=== PATIENT | female | born 1960 | race Caucasian/White ===

== ENCOUNTER 2018-05-03 17:48 | Outpatient (REF) | payer BC, SELFPAY ==
--- NOTE | 2018-05-03 13:30 | ORMUBX_PTH ---
PATIENT: [place] Garduno LOC: [facility] U#:[id number] AGE/SX: 57/F ROOM: RE05/03/[address]: Brien Reed : 1960 BED: DIS: 05/03/2018 SPEC #: [id number] RECD: 05/03/18 18:09 STATUS: DEENA REQ #: [id number] MICHAEL: 05/03/18 13:[address]: Brien Reed DEPT: Surgical Specimen RECD BY: Lesly Oneill ENTERED: 05/03/18 18:10 SP TYPE: ORMUBX OTHR DR: Delia Jacques Tissues: 1 - MUCOSA, NOS Procedures: GROSS AND MICRO LEVEL 4 Comments: [id number]
== END 2018-05-03 18:08 ==
LOC: LBN 17:48
PROVIDERS: PCP Nurse Practitioner Family; Visit Provider Dentist General Practice
DX: K09.8 Other cysts of oral region, not elsewhere classified (principal)
CPT/HCPCS: 88305

== ENCOUNTER 2018-09-07 12:54 | Outpatient (REF) | payer BC, SELFPAY ==
[2018-09-07 14:41] LABS: ALT 27 U/L (12-78); AST 15 U/L (15-37); Albumin 3.9 g/dL (3.4-5.0); Alkaline Phosphatase 108 U/L (46-116); Anion Gap 13.2 mmol/L (3-11); BUN 15 mg/dL (7-18); Bilirubin, Total 0.4 mg/dL (0.2-1.0); CO2 23.8 mmol/L (21.0-32.0); CREATININE 0.97 mg/dL (0.55-1.02); Calcium 9.1 mg/dL (8.5-10.1); Calculated LDL 205 mg/dL; Chloride 103 mmol/L (98-107); Cholesterol 289 mg/dL (50-200); Estimated GFR 59.62 (mL/min/1.73m2); Glucose 126 mg/dL (70-100); HDL Cholesterol 48 mg/dL (40-60); Sodium 140 mmol/L (136-145); Total Protein 7.2 g/dL (6.4-8.2); Triglyceride 181 mg/dL (30-150)
== END 2018-09-07 13:14 ==
LOC: NCHCN 12:54
PROVIDERS: PCP Nurse Practitioner Family; Visit Provider Family Medicine
DX: E78.5 Hyperlipidemia, unspecified (principal)
CPT/HCPCS: 80053; 80061; 83721

== ENCOUNTER 2019-03-14 09:09 | Outpatient (REF) | payer BC, SELFPAY ==
[2019-03-14 13:11] LABS: ALT 23 U/L (14-59); AST 13 U/L (15-37); Alkaline Phosphatase 92 U/L (46-116); Bilirubin, Total 0.5 mg/dL (0.2-1.0); Calculated LDL 122 mg/dL; Cholesterol 192 mg/dL (<200); HDL Cholesterol 46 mg/dL (40-60); Total Protein 6.9 g/dL (6.4-8.2); Triglyceride 120 mg/dL (<150)
[2019-03-14 15:35] LABS: Bilirubin, Direct 0.12 mg/dL (0.00-0.20)
== END 2019-03-14 09:29 ==
LOC: NCHCN 09:09
PROVIDERS: PCP Family Medicine; Visit Provider Family Medicine
DX: Z00.00 Encounter for general adult medical examination without abnormal findings (principal); E78.5 Hyperlipidemia, unspecified; E66.9 Obesity, unspecified
CPT/HCPCS: 80061; 80076

== ENCOUNTER 2019-11-08 20:59 | Outpatient (REF) | payer BC, SELFPAY ==
[2019-11-11 05:49] LABS: SARS-CoV-2 RNA Undetected (Undetected); SARS-CoV-2 Specimen Source Nasal
== END 2019-11-08 21:19 ==
LOC: NCHCN 20:59
PROVIDERS: PCP Family Medicine; Visit Provider Nurse Practitioner Family
DX: Z20.828 Contact with and (suspected) exposure to other viral communicable diseases (principal)
CPT/HCPCS: U0003

== ENCOUNTER 2019-11-15 15:56 | Outpatient (REF) | payer BC, SELFPAY ==
[2019-11-20 12:26] LABS: Misc Referral (VDH) See Comments
== END 2019-11-15 16:16 ==
LOC: NCHCN 15:56
PROVIDERS: PCP Family Medicine; Visit Provider Nurse Practitioner Family
DX: R19.7 Diarrhea, unspecified (principal)
CPT/HCPCS: 87329; 87324

== ENCOUNTER 2020-03-04 03:18 | Outpatient (CLI) | payer BC, SELFPAY ==
--- NOTE | 2020-03-04 14:00 | NS.NUTBLAN_ITS ---
[place] was referred for Medical Nutrition Therapy for morbid obesity. Medical Chart indicates Wt: 252 ht: 66 BMI 40.9. Most recent lipids indicate elevated LDL. Meds include atorvastatin and BP medication. [place] reports steady weight gain in last 20 years despite being active and eating mostly home made meals. She just got her CPAP machine due to sleep apnea. We discussed pros and cons of dieting versus weight loss surgery. [place] is willing to try to follow a low carb, high protein diet and to exercise 1 hour daily. Goal weight loss: 5 lbs per month, goal weight: 220 lbs. I educated her on how to maintain a high metabolism despite calorie reduction by eating 3 meals, 2 snacks daily and increasing amount of exercise as weight becomes lower. [place] was disappointed that weight loss requires a lot of time in exercise and inability to enjoy foods she typically likes to eat. She is not willing to consider weight loss surgery though it will provide the most reliable weight loss to a BMI < 25. Plan: 1. no follow up planned, [place] will call for follow up appt. 2. Weigh self once weekly- goal 5 lbs loss per 4 weeks 3. follow [id number] kcal meal plan with 80-100 g carb, 60-80 g protein, 50- 60 g fat 4. walk 7 miles per week 5. fu with PCP if feels unwell with moderate exercise.
== END 2020-03-04 03:38 ==
PROVIDERS: PCP Family Medicine; Visit Provider Dietitian, Registered
DX: E66.01 Morbid (severe) obesity due to excess calories (principal); Z68.41 Body mass index [BMI] 40.0-44.9, adult; Z71.3 Dietary counseling and surveillance
CPT/HCPCS: 97802

== ENCOUNTER 2020-03-26 01:04 | Outpatient (CLI) | payer OTHER, SELFPAY ==
--- NOTE | 2020-03-26 15:45 | DI.MAMMO_ITS ---
EXAM: MG MAMMO SCREENING CLINICAL HISTORY: SCREENING, Z12.31 TECHNIQUE: Bilateral full field digital CC and MLO mammographic images were obtained with 3D tomosyn thesis and utilizing computer aided detection (CAD). COMPARISON: Available for comparison. FINDINGS: Masses/Architectural Distortion: There is a new 1.3 cm density at the 12 o'clock position of the righ t breast posteriorly. There is a 5 mm asymmetric density in the outer left breast on the craniocauda d view. Microcalcifications: No suspicious pleomorphic-type are seen. Skin Thickening/Nipple Retraction: None. IMPRESSION: 1. New 1.3 cm density at 12 o'clock position of the right breast. 5 mm asymmetric density in the out er left breast on the CC view. 2. Spot compression views are requested of these areas. Ultrasound should be obtained at that time. BI-RADS Category 0 - Assessment Incomplete: Need additional imaging evaluation Breast Density - Category B - Scattered areas of fibroglandular density Breast density category C or D implies that the patient has dense breast tissue. Dense breast tissue is very common and is not abnormal but dense breast tissue can make it harder to find cancer on a ma mmogram. Also, dense breast tissue may increase their breast cancer risk. This information about the result of the mammogram report was provided to the patient to raise their awareness. Use this report when you speak with the patient about their risks for breast cancer, which includes their family hist ory. At that time, you may recommend for more screening tests (Ultrasound or MRI) as they might be us eful based on their risk. A negative radiographic report should not delay biopsy if a dominant or clinically suspicious mass is present. Up to ten percent of cancers are not identified on mammography. A negative report may reinforce clinical impression. Adenosis and dense breasts may obscure an underlying neoplasm. False positive reports average 6 to 10%. Patient will receive a letter notifying them of these results.
== END 2020-03-26 01:24 ==
PROVIDERS: PCP Family Medicine; Visit Provider Family Medicine
DX: Z12.31 Encounter for screening mammogram for malignant neoplasm of breast (principal); R92.8 Other abnormal and inconclusive findings on diagnostic imaging of breast
CPT/HCPCS: 77063; 77067

== ENCOUNTER 2020-04-03 01:38 | Outpatient (CLI) | payer OTHER, SELFPAY ==
--- NOTE | 2020-04-03 | DI.US_ITS ---
EXAM: MG MAMMO SCREEN CALL BACK UNI CLINICAL HISTORY: F/U MAMMO, NEW RT BREAST DENSITY, LT BREAST ASYMMETRIC DENSITY TECHNIQUE: Bilateral full spot compression digital CC and MLO mammographic images were obtained incl uding 3D tomosynthesis. COMPARISON: 26 March 2020 and exams from 2010 through 2018. FINDINGS: Right breast: Masses/Architectural Distortion: Persistent mass in the central posterior tissue measuring 13 millime ters in greatest dimension. There is associated spiculation. Microcalcifications: No suspicious pleomorphic-type are seen. Skin Thickening/Nipple Retraction: None. Right breast ultrasound: Ultrasound shows a 13 x 13 x 5 millimeter hypoechoic mass in the posterior t issue at the 12 o'clock position, 2 centimeters from the nipple. The margins are irregular and there is posterior shadowing. A 4 millimeter hypoechoic lesion is seen in the 12 o'clock position 3 cm fr om the nipple which could represent a small cyst or lymph node. Left breast: There is a spiculated appearing 4-5 millimeter lesion seen only on the CC view. Left breast ultrasound: No mass is identified. IMPRESSION: 1. Right breast: Persistent spiculated mass. Biopsy is recommended for further evaluation. BI-RADS C at 5 - Highly Suggestive of Malignancy: Biopsy recommended. 2. Left breast: No definite persistent abnormality. Six-month follow-up mammogram or further evalu ation with MRI could be considered. BI-RADS Category 5 - Highly Suggestive of Malignancy: Biopsy recommended Breast Density - Category B - Scattered areas of fibroglandular density Up to ten percent of cancers are not identified on mammography. A negative report may reinforce clinical impression. Adenosis and dense breasts may obscure an underlying neoplasm. False positive reports average 6 to 10%. Patient will receive a letter notifying them of these results.
== END 2020-04-03 01:58 ==
PROVIDERS: PCP Family Medicine; Visit Provider Family Medicine
DX: R92.8 Other abnormal and inconclusive findings on diagnostic imaging of breast (principal); N63.15 Unspecified lump in the right breast, overlapping quadrants
CPT/HCPCS: 76642; 77063; 77067

== ENCOUNTER 2022-06-04 16:52 | Outpatient (REF) | payer OTHER, SELFPAY ==
[2022-06-04 21:53] LABS: ALT 26 U/L (14-59); AST 16 U/L (15-37); Albumin 4.3 g/dL (3.4-5.0); Alkaline Phosphatase 109 U/L (46-116); Anion Gap 2.4 mmol/L (3-11); BUN 17 mg/dL (7-18); Bilirubin, Total 0.2 mg/dL (0.2-1.0); CO2 26.6 mmol/L (21.0-32.0); Calcium 9.5 mg/dL (8.5-10.1); Calculated LDL 199 mg/dL (<100); Chloride 103 mmol/L (98-107); Cholesterol 312 mg/dL (<200); Glucose 117 mg/dL (74-106); HDL Cholesterol 49 mg/dL (40-60); Potassium 3.9 mmol/L (3.5-5.1); Sodium 132 mmol/L (136-145); Total Protein 7.3 g/dL (6.4-8.2); Triglyceride 320 mg/dL (<150)
[2022-06-04 21:55] LABS: Hemoglobin A1C 5.9 % (<5.7)
== END 2022-06-04 16:53 | disposition home or self-care (01) ==
LOC: NCHCN 16:52
PROVIDERS: PCP Family Medicine; Visit Provider Family Medicine
DX: Z00.00 Encounter for general adult medical examination without abnormal findings (principal); F41.8 Other specified anxiety disorders; E78.5 Hyperlipidemia, unspecified; E66.8 Other obesity; R73.09 Other abnormal glucose
CPT/HCPCS: 80053; 80061; 83036

== ENCOUNTER 2022-07-02 17:36 | Outpatient (REF) | payer OTHER, SELFPAY ==
[2022-07-02 20:37] LABS: Anion Gap 5.4 mmol/L (3-11); BUN 12 mg/dL (7-18); CO2 29.6 mmol/L (21.0-32.0); CREATININE 1.1 mg/dL (0.55-1.02); Calcium 9.1 mg/dL (8.5-10.1); Chloride 105 mmol/L (98-107); Estimated GFR 57.88 (mL/min/1.73m2); Glucose 109 mg/dL (74-106); Potassium 4.7 mmol/L (3.5-5.1); Sodium 140 mmol/L (136-145)
== END 2022-07-02 17:37 | disposition home or self-care (01) ==
LOC: NCHCN 17:36
PROVIDERS: PCP Family Medicine; Visit Provider Family Medicine
DX: E78.5 Hyperlipidemia, unspecified (principal); E66.9 Obesity, unspecified
CPT/HCPCS: 80048

== ENCOUNTER → 2023-01-12 00:43 | Outpatient (CLI) | payer OTHER, SELFPAY ==
--- NOTE | 2023-01-12 | DI.RAD_ITS ---
Exam(s) XR KNEE RT 3V AP,LAT,DOMI EXAM: XR KNEE RT 3V AP,LAT,DOMI CLINICAL HISTORY: RAFAEL KNEE PAIN, M25.569. TECHNIQUE: 2D digital imaging was performed. COMPARISON: CR XR KNEE LT 3V AP,LAT,DOMI from 01/12/2023 FINDINGS: 3 views No evidence of fracture. Small amount of increased joint fluid. There is moderate narrowing of the joint spaces, most evident in the lateral compartment; less so in the medial compartment and patellofemoral compartment. Vacuum phenomenon seen within the medial comp artment. No osseous lesions. Bone density normal. IMPRESSION: Degenerative changes, most prominent in the lateral compartment which is opposed to the findings in t he opposite-left knee where the most prominent degenerative changes in the medial compartment. DATA REPOSITORY: RADIATION DOSE DELIVERED:
--- NOTE | 2023-01-12 | DI.RAD_ITS ---
Exam(s) XR KNEE LT 3V AP,LAT,DOMI EXAM: XR KNEE LT 3V AP,LAT,DOMI CLINICAL HISTORY: RAFAEL KNEE PAIN, M25.569. TECHNIQUE: 2D digital imaging was performed. COMPARISON: CR XR KNEE RT 3V AP,LAT,DOMI from 01/12/2023 FINDINGS: 3 views There is no evidence acute fracture and there is no obvious joint effusion. There is significant osteoarthritic degenerative change which is most prominent in the medial compart ment with [id number] narrowing and marginal osteophytes off the medial compartment. There also adv anced degenerative changes in the patellofemoral compartment. More moderate degenerative changes in the lateral compartment. There is also a loose intra-articular body seen posteriorly in the intercondylar notch and which monty ures approximately 12 x 11 mm. This is not lateral enough to be the fabella. IMPRESSION: Advanced degenerative changes. There is also a 12 x 11 mm posteriorly located loose intra-articular calcified body DATA REPOSITORY: RADIATION DOSE DELIVERED:
== END ==
PROVIDERS: PCP Family Medicine; Visit Provider Family Medicine
DX: M17.0 Bilateral primary osteoarthritis of knee (principal)
CPT/HCPCS: 73562

== ENCOUNTER 2023-01-25 07:55 | Emergency (ER) | payer OTHER, SELFPAY ==
[2023-01-25 07:59] VITALS: BP 140/75; PULSE 86; RESP 18; TEMP 37.2; O2SAT 100
--- NOTE | 2023-01-25 08:13 | ED.GENADUL_ITS ---
Discharge Plan Disposition Patient Disposition: Home Condition: Stable Discharge Details Clinical Impression: Right knee DJD Primary Care Provider: Luma Madrid ED Provider: Octavia Barrios Home Meds and New Rx's Prescriptions: Continued amlodipine [Norvasc] 2.5 MG tablet 10 mg PO DAILY amitriptyline 50 MG tablet 100 mg PO DAILY multivitamin [Daily Multi-Vitamin] 1 EACH tablet 1 ea PO DAILY Gummi fiber chew 2 tab.chew PO BID Fish Oil 500 MG capsule,delayed release(DR/EC) 500 mg PO DAILY omeprazole 20 MG capsule,delayed release(DR/EC) 20 mg PO DAILY@0730 Discharge Instructions Instructions: Osteoarthritis (ED) Additional Instructions: Wear the knee brace as needed for comfort. Rest Ice Compression elevation. No significant change noted on the Xrays. Take the medication with food, no driving or operating heavy machinery while on the medication. Apply the toplical diclofenac cream up to 3 times daily. You have been placed on a list to help you get a sooner appointment if needed. Follow up with primary care provider in 3-5 days. Return to ED sooner if any worsening or concerns. Increase oral fluids. Please take Tylenol or Ibuprofen with food every 4-6 hours as needed for pain and swelling. Stand Alone Forms: Work Release Referrals: Luma Madrid [Primary Care Provider] - Return if symptoms worsen Say Ramos MD [ [facility] STAFF PHYSICIAN] - 1 week Medical Decision Making 62 year old female presents to the ED with chief complaint of right knee pain. Patient states she felt as if something gave out. She is tearful upon presentation. Took Tylenol this am and has a orthopedic appt on Mar 22. Denies any falls or recent injuries. No swelling or erythema, no other associated symptoms or complaints. Repeat XRays ordered, Oxycodone and Voltaren topical cream. No significant effusion noted on the x-rays no obvious abnormality. She does have some narrowing of the knee joint the lateral aspect. No significant change from previous. Patient placed in a hinged knee brace. Discussed XR results with patient and family. Was given 4 tablets of Oxycodone to go. All of her questions were answered to the best of my ability. Patient was placed on care management list to assist her in getting a sooner appointment with orthopedics. This text was generated using [employer] dictation system, please disregard any oddities of phrase or misspellings. Medical Records Medical records reviewed: Yes I reviewed the patient's medical records. Imaging Data Radiologic Study: Imaging: X-Ray Radiologist's impression: Exam(s) XR KNEE RT 3V AP,LAT,DOMI EXAM: XR KNEE RT 3V AP,LAT,DOMI CLINICAL HISTORY: Knee Pain. TECHNIQUE: 2D digital imaging was performed. Three views. COMPARISON: CR XR KNEE RT 3V AP,LAT,DOMI from 01/12/2023 FINDINGS: BONES: No acute fracture is present. No bony destructive lesion is seen. Periarticular spurring. JOINTS: Mild to moderate narrowing lateral femoral tibial joint space. No joint effusion is seen. SOFT TISSUE: Normal. IMPRESSION: Degenerative changes. No acute abnormality. HPI General Mode of arrival: ambulatory . Date/Time Provider Initiated Documentation: 01/25/23 08:02 . Limitations to Documentation: no limitations . Information obtained by: patient, RN notes reviewed and old records reviewed . HPI Narrative: 62 year old female presents to the ED with chief complaint of right knee pain. Patient states she felt as if something gave out. She is tearful upon presentation. Took Tylenol this am and has a orthopedic appt on Mar 22. Denies any falls or recent injuries. No swelling or erythema, no other associated symptoms or complaints. Related Data Home Medications Medication Instructions Recorded Confirmed amitriptyline 50 mg tablet 100 mg PO DAILY 06/25/14 01/25/23 amlodipine 2.5 mg tablet (Norvasc) 10 mg PO DAILY 06/25/14 01/25/23 Gummi Fiber Chew 2 tab.chew PO BID 09/03/14 01/25/23 multivitamin (Daily Multi-Vitamin 1 ea PO DAILY 09/03/14 01/25/23 tablet) omega 3-dha 60 mg-epa 90 mg-fish 500 mg PO DAILY 10/28/15 01/25/23 oil 500 mg capsule, delayed release (Fish Oil) omeprazole 20 mg capsule,delayed 20 mg PO DAILY@0730 10/28/15 01/25/23 release Allergies Allergy/AdvReac Type Severity Reaction Status Date / Time No Known Allergies Allergy Unverified 01/25/23 08:02 General Stated Complaint: Orthopedic AMBER: 3 Review of Systems All systems reviewed & are unremarkable except as noted in HPI and below Musculoskeletal Musculoskeletal: Reports as per HPI and Reports arthralgias PFSH All Active Problems (Updated 01/25/23 @ 09:04 by Octavia Barrios NP) Right knee DJD (Acute) Surgical History section X 3 Abdominal hysterectomy EGD - IV Sedation (10/28/15) Family History Mother Parkinsons disease Father Alzheimers disease Social History Smoking/Tobacco Use Status: Former Tobacco Use Smoking risk assessment performed?: Yes Alcohol Intake: never Drug use: Never Substance use type: does not use Do you feel safe at home: Yes Do you feel safe in your relationship?: Yes Exam Extrem General: normal to inspection Right lower extremity: knee Details: tenderness Course Vital Signs Vital signs: Vital Signs Temperature 37.2 C 01/25/23 07:59 Pulse 86 01/25/23 07:59 Respiratory Rate 18 01/25/23 07:59 Blood Pressure 140/75 01/25/23 07:59 Pulse Oximetry 100 01/25/23 07:59 Temperature 37.2 C 01/25/23 07:59 Temperature Source Temporal Artery Scan 01/25/23 07:59 Pulse 86 01/25/23 07:59 Respiratory Rate 18 01/25/23 07:59 Respiratory Effort Normal, Non-Labored 01/25/23 08:02 Blood Pressure 140/75 01/25/23 07:59 Blood Pressure Position Sitting 01/25/23 07:59 Pulse Oximetry 100 01/25/23 07:59 Oxygen Delivery Method Room Air 01/25/23 07:59 Oxygen Flow Rate 0 01/25/23 07:59
[2023-01-25] MEDS: oxyCODONE 5 MG TAB PO (08:21)
[2023-01-25] MEDS: Diclofenac 1% Gel 100 GM TUBE TP (08:22)
--- NOTE | 2023-01-25 08:49 | DI.RAD_ITS ---
Exam(s) XR KNEE RT 3V AP,LAT,DOMI EXAM: XR KNEE RT 3V AP,LAT,DOMI CLINICAL HISTORY: Knee Pain. TECHNIQUE: 2D digital imaging was performed. Three views. COMPARISON: CR XR KNEE RT 3V AP,LAT,DOMI from 01/12/2023 FINDINGS: BONES: No acute fracture is present. No bony destructive lesion is seen. Periarticular spurring. JOINTS: Mild to moderate narrowing lateral femoral tibial joint space. No joint effusion is seen. SOFT TISSUE: Normal. IMPRESSION: Degenerative changes. No acute abnormality. DATA REPOSITORY: RADIATION DOSE DELIVERED:
== END 2023-01-25 10:02 | disposition home or self-care (01) ==
PROVIDERS: Emergency Provider Registered Nurse Emergency; PCP Family Medicine
DX: M17.11 Unilateral primary osteoarthritis, right knee (principal); Z87.891 Personal history of nicotine dependence
CPT/HCPCS: 73562; 99283; 99282

== ENCOUNTER 2023-03-11 03:52 | Outpatient (CLI) | payer OTHER, SELFPAY ==
[2023-03-11 12:39] LABS: HCT 43.6 % (36.0-46.0); MCH 28.5 pg (27.0-33.0); MCHC 32.1 % (32.0-36.0); MCV 89 fL (80-95); MPV 10.3 fL (8.0-11.0); Platelet Count 283 10^3/uL (130-400); RBC 4.92 10^6/uL (3.93-5.22); RDW 14.2 % (11.7-14.6); RDW-SD 46.3 fL; WBC 7.92 10^3/uL (4.4-10.8)
[2023-03-11 13:19] LABS: Anion Gap 7.7 mmol/L (3-11); BUN 14 mg/dL (7-18); CO2 28.3 mmol/L (21.0-32.0); CREATININE 1.1 mg/dL (0.55-1.02); Calcium 9.3 mg/dL (8.5-10.1); Chloride 102 mmol/L (98-107); Estimated GFR 57.52 (mL/min/1.73m2); Glucose 108 mg/dL (74-106); Potassium 3.9 mmol/L (3.5-5.1); Sodium 138 mmol/L (136-145)
== END 2023-03-11 03:53 | disposition home or self-care (01) ==
LOC: LBO 03:53
PROVIDERS: PCP Family Medicine; Visit Provider Student in an Organized Health Care Education/Training Program
DX: M17.11 Unilateral primary osteoarthritis, right knee (principal); Z01.818 Encounter for other preprocedural examination
CPT/HCPCS: 36415; 80048; 85027

== ENCOUNTER 2023-03-11 13:09 | Outpatient (CLI) | payer OTHER, SELFPAY ==
--- NOTE | 2023-03-11 12:01 | DI.RAD_ITS ---
Exam(s) XR STANDING ALIGNMENT XR KNEE RT 1V EXAM: XR STANDING ALIGNMENT and XR knee RT 1 V CLINICAL HISTORY: right knee DJD. TECHNIQUE: 2D digital imaging was performed. Six images were obtained. COMPARISON: CR XR KNEE RT 3V AP,LAT,DOMI from 01/12/2023 CR XR KNEE LT 3V AP,LAT,DOMI from 01/12/2023 CR XR KNEE RT 3V AP,LAT,DOMI from 01/25/2023 FINDINGS: BONES: There are moderate degenerative changes seen in the left hip. Moderately severe degenerative changes are seen in the left knee with joint space narrowing and osteophytes present. The findings a re most marked in the medial femoral tibial joint space. There is again seen a loose body posteriorl y. In the right knee, there is moderate narrowing of the medial femoral tibial joint space. Osteoph ytes are seen involving all 3 joint compartments. There is a small suprapatellar joint effusion. Th e ankles are well maintained.There is no significant leg length discrepancy. SOFT TISSUE: Normal. IMPRESSION: Bilateral knee osteoarthritis, left greater than right. DATA REPOSITORY: RADIATION DOSE DELIVERED:
== END 2023-03-11 13:10 | disposition home or self-care (01) ==
LOC: DIORS 13:09
PROVIDERS: PCP Family Medicine; Referring Provider Family Medicine; Visit Provider Physician Assistant
DX: M17.11 Unilateral primary osteoarthritis, right knee (principal)
CPT/HCPCS: 73560; 77073

== ENCOUNTER 2023-03-16 15:52 | Observation (INO) | payer OTHER, SELFPAY ==
[2023-03-16] VITALS (20 sets, daily range): BP systolic 96–169; BP diastolic 43–93; PULSE 74–90; RESP 14–24; TEMP 36.1–37; O2SAT 93–100; BMI 42.3
--- NOTE | 2023-03-16 08:55 | PDOC.DSDIS_ITS ---
Date of service: 03/16/23 Time of Service: 10:20 Discharge Plan Disposition Patient Disposition: Home Condition: Good Discharge Details Reason For Visit: Right knee DJD Attending Provider: Say Ramos Primary Care Provider: Luma Madrid Home Meds and New Rx's Prescriptions: New celecoxib [Celebrex] 200 mg capsule 200 mg PO BID PRNQty: 60 0RF Rx Instructions: Take one tablet twice daily for pain and inflammation aspirin 81 mg tablet,delayed release (DR/EC) 81 mg PO BID 30 Days Qty: 60 0RF acetaminophen 500 mg tablet 1,000 mg PO Q8H PRN Qty: 90 0RF Rx Instructions: Take two tablets up to every 8 hours as needed for pain dexamethasone 4 mg tablet 4 mg PO DAILY Qty: 2 0RF Rx Instructions: Take one tablet once daily for two days docusate sodium [Colace] 100 mg capsule 100 mg PO BID Qty: 30 0RF gabapentin 300 mg capsule 300 mg PO QHS Qty: 14 0RF Rx Instructions: Take one tablet at bedtime oxycodone 5 mg tablet 5 mg PO Q4H PRNQty: 18 0RF Rx Instructions: Take one tablet up to every 4 hours as needed for severe postoperative pain Continued amitriptyline 50 MG tablet 100 mg PO DAILY multivitamin [Daily Multi-Vitamin] 1 EACH tablet 1 ea PO DAILY Gummi fiber chew 2 tab.chew PO BID amlodipine [Norvasc] 2.5 mg tablet 5 mg PO HS hydroxyzine HCl 25 mg tablet 25 mg PO QHS PRN atorvastatin 20 mg tablet 20 mg PO QHS omeprazole 20 MG capsule,delayed release(DR/EC) 20 mg PO DAILY@0730 melatonin 5 mg tablet 5 mg PO HS PRN Discontinued diclofenac potassium 50 mg tablet 50 mg PO QID Patient Comments: Does not always work Discharge Instructions Additional Instructions: Total Knee Discharge Instructions Activity: The most important activity is to walk and to work on gentle motion (both flexion and extension). You should try to take short walks a few times a day. It is important that when resting you work on keeping the knee straight. Avoid putting a pillow behind the knee as this will encourage flexion. Work on range of motion exercises as provided by Physical Therapy. - Start outpatient physical therapy within 2 weeks. - You should wear the EVANS hose on both legs for 2 weeks. You may remove these at night. You may also use any compression sock in place of the EVANS hose. - Utilize [employer] to review exercises, see videos on exercises and obtain basic information pertaining to your surgery and your recovery. Dressing: Remove the Kyle wrap by 2 days after your surgery and put on the EVANS stocking given to you from the hospital. Keep the surgical dressing (underneath the KYLE wrap) in place for at least one week. After the first week it may be removed and replaced with light gauze and tape or nothing. The wound and dressing may get wet after 3 days but avoid soaking the dressing or otherwise it will need to be changed. Many people prefer covering the dressing with cling wrap (saran wrap) to minimize it from getting soaked. If it gets wet, just pat dry. If it starts to peel off then it will need to be changed. Medications: - You should take Tylenol and anti-inflammatory Celebrex as your primary pain control medications. If the Celebrex is too expensive or not covered, please call the office for another alternative (Advil/Ibuprofen or Naproxen/Aleve) - You have been prescribed a stronger pain medication Oxycodone for breakthrough pain, take as needed as prescribed. - You take a stomach acid reduction agent Omeprazole at baseline - continue with this medication to help reduce stomach acid and reflux. - You have been prescribed Gabapentin to take at night for restlessness and nerve pain. - You will be taking Aspirin 81mg twice a day for DVT prevention unless instructed otherwise. - You have also been prescribed Decadron to take to control post-operative nausea and pain. You will start this tomorrow. - If you have constipation you should take Colace (which has been prescribed) or Miralax (which is avaialble [id number]). It takes most people 3-4 days to have a bowel movement. Follow-up: 2 weeks If you have any acute concerns or questions, please do not hesitate to contact the office at [phone]. You may contact Dr. Ramos with any questions after hours through the hospital at [phone] or on his cell phone at [phone]. Referrals: Say Ramos MD [ [facility] STAFF PHYSICIAN] - Equipment/Supplies: Walker Activity:: Elevate Remove Dressings/Wound Care:: Do Not Remove Shower/Bathe:: 72 hours and Cover Diet:: As Tolerated Discharge Orders Discharge Orders: Discharge Order (Routine); Ordered 03/16/23 Ordered By: Ellen Smith
[2023-03-16] MEDS: Acetaminophen 500 MG TAB 1000 MG PO ×2 (09:08→19:19)
[2023-03-16] MEDS: Celecoxib 200 MG CAP 400 MG PO (09:08)
[2023-03-16] MEDS: Gabapentin 300 MG CAP PO ×2 (09:08→21:11)
--- NOTE | 2023-03-16 09:36 | W.ANESPRE ---
General Info Date of Service Date Performed: 03/16/23 Height: 5 ft 6 in Weight: 118.8 kg Body Mass Index (BMI): 42.3 Surgical Procedure: Operation Date: 03/16/23 11:40 Proposed Procedure Side Surgeon p Knee Total Arthroplasty Right Say Ramos MD Meds Allergies and Home Medications Allergies Allergy/AdvReac Type Severity Reaction Status Date / Time No Known Allergies Allergy Verified 03/16/23 08:56 Home Medication Medication Instructions Recorded amitriptyline 50 mg tablet 100 mg PO DAILY 06/25/14 Gummi Fiber Chew 2 tab.chew PO BID 09/03/14 multivitamin (Daily Multi-Vitamin 1 ea PO DAILY 09/03/14 tablet) omeprazole 20 mg capsule,delayed 20 mg PO DAILY@0730 10/28/15 release amlodipine 2.5 mg tablet (Norvasc) 5 mg PO HS 01/27/23 atorvastatin 20 mg tablet 20 mg PO QHS 01/27/23 hydroxyzine HCl 25 mg tablet 25 mg PO QHS PRN 01/27/23 melatonin 5 mg tablet 5 mg PO HS PRN 03/15/23 acetaminophen 500 mg tablet 1,000 mg (2 x 500 mg) PO Q8H PRN 03/16/23 pain #90 tabs aspirin 81 mg tablet,delayed 81 mg PO BID 30 days #60 tabs 03/16/23 release celecoxib 200 mg capsule (Celebrex) 200 mg PO BID PRN #60 caps 03/16/23 dexamethasone 4 mg tablet 4 mg PO DAILY #2 tabs 03/16/23 docusate sodium 100 mg capsule 100 mg PO BID #30 caps 03/16/23 (Colace) gabapentin 300 mg capsule 300 mg PO QHS #14 caps 03/16/23 oxycodone 5 mg tablet 5 mg PO Q4H PRN #18 tabs 03/16/23 Current Visit Medications: Current Medications Generic Name Dose Route Start Last Admin Trade Name Freq PRN Reason Stop Dose Admin Acetaminophen 1,000 mg 03/16/23 06:00 03/16/23 09:08 Acetaminophen 500 Mg Tab PO 04/15/23 05:59 1,000 mg PREOP NAMRATA Administration Celecoxib 400 mg 03/16/23 06:00 03/16/23 09:08 Celecoxib 200 Mg Cap PO 04/15/23 05:59 400 mg PREOP NAMRATA Administration Gabapentin 300 mg 03/16/23 06:00 03/16/23 09:08 Gabapentin 300 Mg Cap PO 04/15/23 05:59 300 mg PREOP NAMRATA Administration Hydromorphone HCl 0.5 mg 03/16/23 08:54 Hydromorphone 2 Mg/Ml Syr IVP 04/15/23 08:53 Q2H PRN PRN Tranexamic Acid 1,000 mg/ 60 mls @ 360 mls/hr 03/16/23 06:00 Sodium Chloride IVPB 04/15/23 05:59 PREOP NAMRATA Ringer's Solution 1,000 mls @ 80 mls/hr 03/16/23 06:00 IV 04/14/23 23:59 INFUSION NAMRATA Cefazolin Sodium 3,000 mg/ 100 mls @ 200 mls/hr 03/16/23 06:00 Sodium Chloride IVPB 03/16/23 16:00 PREOP NAMRATA Cefazolin Sodium/Dextrose 1 gm in 50 mls @ 100 mls/hr 03/16/23 10:00 Ancef Duplex IVPB 03/17/23 02:29 Q8H NAMRATA IV Miscellaneous Supplies 1 each 03/16/23 06:00 Iv Access IV 04/14/23 23:59 DIRECTED NAMRATA Oxycodone HCl 0 mg 03/16/23 08:54 Oxycodone 5 Mg Tab PO 04/15/23 08:53 Q3H PRN PRN Pain Sodium Chloride 0 ml 03/16/23 06:00 Normal Saline Flush 10 Ml Syr IV 04/14/23 23:59 PRN PRN Sodium Chloride 0 ml 03/16/23 06:00 Normal Saline 10 Ml Vial IJ 04/14/23 23:59 DIRECTED PRN Sterile Water 0 ml 03/16/23 06:00 Water,Injection,Sterile 10 Ml Vial IJ 04/14/23 23:59 DIRECTED PRN PFSH Active Problems Active Problems: Problem Status Onset Code DOROTHEA (obstructive sleep apnea) G47.33 Right knee DJD M17.11 Left knee DJD M17.12 Medical History Medical History Breast cancer Migraine (06/25/14) Surgical History Surgical History Status post right breast lumpectomy Jaw fracture as a child required surgery S/P left knee arthroscopy section X 3 Abdominal hysterectomy EGD - IV Sedation (10/28/15) Tobacco Smoking/Tobacco Use Status: Former Tobacco Use Alcohol Alcohol Intake: never Substance Use Substance use: Never Substance use type: does not use Vital Signs and Lab Results Vital Signs Most Recent Vital Signs in EMR: Most Recent Vital Signs Temp Pulse Resp BP Pulse Ox 36.6 C 78 16 150/93 H 100 03/16/23 08:57 03/16/23 08:57 03/16/23 08:57 03/16/23 08:57 03/16/23 08:57 Lab Results Blood Type / Crossmatch: No Data to Display Complete Blood Count: White Blood Count 7.92 10^3/uL (4.4-10.8) 03/11/23 12:33 Red Blood Count 4.92 10^6/uL (3.93-5.22) 03/11/23 12:33 Hemoglobin 14.0 g/dL (11.2-15.7) 03/11/23 12:33 Hematocrit 43.6 % (36.0-46.0) 03/11/23 12:33 Platelet Count 283 10^3/uL (130-400) 03/11/23 12:33 Complete Metabolic Panel: Sodium 138 mmol/L (136-145) 03/11/23 12:33 Potassium 3.9 mmol/L (3.5-5.1) 03/11/23 12:33 Chloride 102 mmol/L (98-107) 03/11/23 12:33 Carbon Dioxide 28.3 mmol/L (21.0-32.0) 03/11/23 12:33 BUN 14 mg/dL (7-18) 03/11/23 12:33 Creatinine 1.1 mg/dL (0.55-1.02) H 03/11/23 12:33 Est GFR (CKD-EPI 2020) 57.52 (mL/min/1.73m2) 03/11/23 12:33 Calcium 9.3 mg/dL (8.5-10.1) 03/11/23 12:33 Glucose 108 mg/dL (74-106) H 03/11/23 12:33 Liver Function Panel: No Data to Display Coagulation Panel: No Data to Display Cardiac Panel: No Data to Display Arterial Blood Gas: No Data to Display Venous Blood Gas: No Data to Display Pancreas Panel: No Data to Display Thyroid Panel: No Data to Display Infectious Disease: No Data to Display Blood Cultures: No Data to Display Toxicology Panel: No Data to Display Anesthesia Assessment and Plan Anesthesia History Personal History: No History of Anesthesia Complications Family History: No Family History of Anesthesia Complications Exercise Tolerance Exercise Tolerance: Metabolic Equivalents>4 Pertinent Negatives Pertinent Negatives: No Symptoms of GERD, No Major Cardiovascular Symptoms or Complaints and No Major Pulmonary Symptoms or Complaints Cardiac & Pulmonary Exam Cardiac Exam: Normal S1/S2 Heart Sounds Pulmonary Exam: Clear Bilateral Breath Sounds Implantable Cardiac Device Does patient have a Pacemaker or an ICD?: No Airway Exam Known Difficult Airway: No Mallampati Class: 1 Mouth Opening: Normal (> 3cm) Thyromental Distance: Greater than 3 cm Neck Range of Motion: Full ROM Neck Circumference: Normal Teeth Condition: Normal Dentition ASA Classification ASA Score: ASA 3 Emergency Case?: No NPO Status NPO Status: NPO Clears >2 hours, Solids >8 hours Anesthesia Plan Resuscitation Status: Full Code Anesthesia Technique: General Anesthesia Airway Planned: LMA Pain Management: Surgeon and patient request nerve block Monitors Used: Standard Monitors
[2023-03-16] MEDS: Lactated Ringers 1,000 ML 80 ML IV (09:58)
[2023-03-16] MEDS: ceFAZolin 3,000 MG in Normal Saline 100 ML 200 MG IVPB (10:45)
--- NOTE | 2023-03-16 11:06 | W.ANESNERVE ---
Nerve Block Single Injection Procedure Date and Time Date Performed: 03/16/23 Procedure Start: 10:30 Location Where Procedure Performed Procedure Location: Day Surgery Unit Reason Performed: Postoperative Analgesia Requesting Provider: Say Ramos Timeout Performed Timeout Performed: Yes Monitoring Used ECG, Blood Pressure, SpO2, ETCO2 and See EMR for corresponding vital signs Sterility Sterility: Hand Hygiene, Surgical Cap, Surgical Mask, Sterile Gloves, Eye Protection and Chlorhexidine Sedation Given During Procedure Sedation Given (Indicate Dose Given): Versed IV Dose:: 3mg IVP Patient Mental Status Patient Mental Status: Sedate with meaningful communication Nerve Block 1st Nerve Block: Laterality: Right Block Type: Adductor Canal Ultrasound Image Saved?: Yes Needle / Catheter Used: 100mm SonoPlex II Local Anesthetic Bolus (Indicate Dose Given): Lidocaine used for local infiltration of skin and Ropivacaine 0.5% Dose:: 0.5%/25cc (125mg) Additives (Indicate Dose Given): Epinephrine to make 1:200,000 (5mcg/ml) Dose:: 125mcg/25cc (1:200,000) Ultrasound: Sterile probe cover and gel used Nerve Stimulator: Not Used Paresthesia: None Procedure Tolerated: No Complications and Patient tolerated well Procedure Outcome: Successful Performed By: Dmitry Khan
[2023-03-16] MEDS: fentaNYL 100 MCG/2 ML VIAL IVP ×3 (12:45→13:10)
[2023-03-16] MEDS: HYDROmorphone 2 MG/ML SYR IVP ×2 (13:15→13:35)
[2023-03-16] MEDS: Normal Saline 10 ML VIAL IJ (13:15)
[2023-03-16] MEDS: oxyCODONE 5 MG TAB PO ×3 (13:53→22:16)
--- NOTE | 2023-03-16 14:20 | W.ANESPOSTOP ---
Postoperative Evaluation Date, Time and Location Date Performed: 03/16/23 Time Performed: 14:20 Patient Location: Day Surgery Unit Vital Signs Most Recent Imported Vital Signs: Most Recent Vital Signs Temp Pulse Resp BP Pulse Ox 36.9 C 87 19 123/69 95 03/16/23 14:05 03/16/23 14:05 03/16/23 14:05 03/16/23 14:05 03/16/23 14:05 Pain Score Most Recent Pain Score: Most Recent Pain Score Pain Level 7 03/16/23 14:05 Assessment Mental Status: Awake (Alert & Oriented to Patient Baseline) Airway and Respiratory Function: Patent airway with normal (patient baseline) respiratory exam Cardiovascular Function: Hemodynamically Stable Hydration Status: Adequately Hydrated Nausea & Vomiting: No Nausea or Vomiting Pain: Pain is tolerable per patient Peripheral Nerve Block: Regional nerve block not resolved at time of post operative discharge
--- NOTE | 2023-03-16 14:51 | ROE_ITS ---
Date of service: 03/16/23 Time of Service: 10:40 Operative Note Operative Note DATE OF PROCEDURE: 03/16/23 PRE-OP DIAGNOSIS: Right Knee Osteoarthritis POST-OP DIAGNOSIS: same PROCEDURE: Right Total Knee Replacement SURGEON: Say Ramos VICE PRESIDENT RISK MANAGEMENT: Ellen Smith ANESTHESIA TYPE: Spinal Refer to Anesthesia Record ESTIMATED BLOOD LOSS: 150 PATHOLOGY: none sent TOURNIQUET TIME: 0 COMPLICATIONS: None Patient was transported to: PACU Patient's condition: stable Implants: 1. Depuy Attune Cementless Cruciate Retaining Femoral Component, Size 6 2. Depuy Attune Cementless Fixed Bearing Tibial Component, Size 5 3. Depuy Attune 6x7 CR/FB Poly 4. Depuy Attune Patellar Component, Size 35 Indications: I have seen [place] in clinic for symptoms of knee arthritis, confirmed with radiographic findings. She has exhausted nonoperative methods and was having significant limitations in daily function and desired better function and less pain. I discussed the technical details of a knee replacement. I explained the risks of the procedure to include, but not limited to, bleeding, infection, pain, stiffness, fracture, damage to nerves and vessels, damage to muscles and tendons, loosening, need for repeat procedure, blood clot and cardiopulmonary demise. Despite these risks, [place] elected to proceed. Findings: There was significant signs of arthritis throughout the knee. Procedure Description: [place] was greeted in the preoperative holding area where the correct side was identified and marked. The consent was reviewed with the patient and signed. The history and physical was updated. All questions were answered. Preoperative medications were administered: Acetaminophen 1000mg, Celebrex 400mg, and Gabapentin 300mg. An adductor canal block was then administered by the anesthesia team in the PACU. [place] was taken back to the operating room. A general anesthestic was then administered. The patient was placed into the supine position on the operating room table. A nonsterile tourniquet was placed high onto the leg but only used for cementing. Posts were placed for positioning during the procedure. All bony prominences were well padded. Prophylactic antibiotics in the form of Cefazolin were administered. 1g of Tranxemic Acid was given intravenously within 30 minutes of incision. The right leg was then prepped with Chloraprep and draped in a standard fashion with impervious stockinette. A second prep with Chloraprep was performed prior to application of Iodine impregnated skin protection. A timeout to confirm correct identity, side and site, procedure, allergies, anesthesia, and medical concerns was performed. With the knee in some flexion, a midline incision was made overlying the knee. Full thickness skin flaps were raised once the extensor mechanism was encountered. These were raised medially and laterally. Any bleeding was controlled with electrocautery. Once the extensor mechanism was fully exposed, a medial parapatellar arthrotomy was performed in a flexed position. All bleeding from the arthrotomy and the geniculate arteries was coagulated. A medial subperiosteal peel was performed with electrocautery to the midcoronal plane. The fat pad was removed while keeping the patellar tendon protected. The anterior distal femur synovium was removed for later visualization. The ACL and PCL were resected and the anterior horn of the lateral meniscus was transected. The knee was then flexed with the patella everted. Large osteophytes from the tibia were removed. Large osteophytes from the femur were removed. Using a step drill, and based on preoperative templating, the femoral canal was entered. This was done with a step drill without any difficulty. The intramedullary distal femoral cut guide was inserted, set to a 5 degree valgus cut and 9mm cut thickness. The distal femoral cut guide was then held in position and pinned. With the soft tissues protected, the distal cut was performed. This was passed over a few times to ensure a planar cut. I then turned attention to the tibia. The extramedullary guide was placed onto the leg. The distal aspect was slid medial to adjust for position of center of ankle and stay in line with shaft of the tibia. Approximately 3-5 degrees of posterior slope was kept in the proximal cutting guide. The center of the guide was aligned with the PCL. The stylus was used to assess cut thickness. The medial side, most involved side, was set for a 4mm cut. This was then held in position and pinned into place with 2 additional pins and a cross pin for stability. The medial and lateral collateral ligaments were protected and the cut was performed. With this completed, it was assessed and noted to be of appropriate dimensions. The guide was removed. A spacer block was inserted and the knee was brought into extension. The 7mm spacer block provided full extension, without hyperextension and with stability of both the medial and lateral collateral ligaments was assessed. The pins from the femur and the tibia were then removed. The distal femur was then sized. The anterior stylus was placed onto the lateral ridge of the anterior femur. This indicated a size 6 femur. The external rotation of the guide was adjusted to 0 degrees to match the epicondylar axis, perpendicular to Majestic?s line. The 4-in-1 cutting guide was the placed. The posterior medial femur cut was evaluated and appeared of good thickness. The spacer block was inserted underneath the cutting guide and stability was confirmed in 90 degrees of flexion. An kp wing was used to confirm appropriate position of the anterior cut to avoid notching. This cutting guide was ensured to be flush on the cut surface and then pinned into place with headed pins. While protecting the soft tissues, quad tendon, and collateral ligaments, the anterior and posterior cuts were performed with a saw. The central two pins were removed and the posterior and anterior chamfers were cut next. The notch-cutting guide was placed. This was pinned to lateralize the femoral component as much as possible while keeping it flush on the cut surface. This was then pinned into position. A reciprocating saw was used to make the notch cut. A rasp smoothed the cut surfaces. The medial and lateral menisci were removed. A trial femoral component was then inserted, impacted down to the cut surfaces, and the lug holes were drilled. A provisional trial tibial component was placed and the knee was brought through range of motion. There was noted to be excellent extension and flexion. There was no significant instability. The patella was tracking without thumbs. A size 7mm polyethylene component provided the best range of motion and stability with less than 2mm gapping with medial and lateral stress and full extension without significant hyperextension. The tibial cut surface was fully exposed. The tibia was then sized as a 5. The tibia had been previously marked during trialing to correspond to the center of the tibial component to help with rotation. The trial was aligned to this dedrick, approximately rotated to the medial 1/3rd of the tibial tubercle. The trial was pinned into place. The tibia was prepared with a reamer and a keel punch and lug holes. The knee was then brought into extension and the patella was measured as 26mm. Using the patellar clamp and cut guide, this was resected to a flat surface with at least 13mm of thickness remaining. The size 35 patella fit the best. This was oriented and then clamped into position. The lugs were drilled. The trial components were removed. The final components were opened on the back table. The periosteal and capsular tissues, especially posteriorly, around the knee were then systematically injected with a periarticular cocktail consisting of 246mg of Ropivacaine, 0.5mg of Epinephrine, 0.08mg of Clonidine, and 30mg of Ketorolac, diluted to 100cc. On the back table, with the implants opened, the cement was mixed. One batch of high viscosity cement was prepared with vacuum assistance. After the cement was ready a small amount was placed on the cut surface of the patella and the patellar button was clamped into position and held. While the cement was hardening, the cementless knee components were placed. Starting with the tibial component, the tibia was subluxed anteriorly and the lug holes of the component were lined up. The tibia was then impacted with an impactor and mallet until the tibial component was in contact with the tibia. The final polyethylene component was inserted. Then, the femoral component was inserted. The lug holes were aligned and the component was impacted into position. The knee was irrigated with Surgiphor Betadine solution. This was allowed to sit in the knee for 3 minutes and then it was irrigated out with saline. After the cement had finally cured, approximately 15min, the clamp was removed from the patella and the knee was taken through range of motion. The patella was tracking with a no-thumbs technique. The capsule was then reapproximated with a No. 1 Vicryl at multiple locations. The capsule was finally closed with a No. 2 Stratafix, barbed suture. The second dosing of 1g TXA was started. Deep tissues were then reapproximated with 0 Vicryl and 2-0 Vicryl. The skin was closed with a running 3-0 Monocryl in a subcuticular fashion. This was reinforced with skin glue. A Mepilex silver dressing was applied along with a [id number] TRAVIS wrap. A CryoCuff was applied. [place] was transferred to the hospital bed without difficulty an suffering no apparent complication. [place] has a good prognosis. Physical therapy will start today and without restrictions, weight-bearing as tolerated. Aspirin 81mg BID will be used for DVT prophylaxis.
--- NOTE | 2023-03-16 15:01 | PT.INIE ---
PT Notes Visit Reasons: Right knee DJD Physical Therapy Day Surgery Initial Evaluation Date: 03/16/2023 Referring Doctor: LESLIE Lopez PT Orders: PT CONSULT: S/P Ortho Surgery Precautions: WBAT on the R LE with AD. Patient Profile/Admitting Diagnosis: [place] is a 62-year-old female with degenerative joint disease of the right knee and status post right total knee arthroplasty on postoperative day 0. 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 Independent with all aspects of ADLs prior to surgery although has had worsening suture with mobility ADL performance due to arthritic process progression. Equipment Owned/DME: FWW, walking stick Subjective: My head feels like a fishbowl... Patient complained of numbness in the R knee mostly on the inner aspect. Had a hard time staying awake during session. Nauseous long-term through the walk. Objective: General Observation: Resting on the recliner when PT came in. High BMI. Mental Status: Drowsy. Tried very hard to stay awake but had great difficulty. Pain: None reported ROM: Right Lower Extremity: Hip flexion WFL. Hip abduction WFL. Knee flexion 20 degrees to 90 degrees. Knee extension -20 degrees. Ankle dorsiflexion WFL. Ankle plantarflexion WFL. Left Lower Extremity: Hip flexion WFL. Hip abduction WFL. Knee flexion WFL. Ankle dorsiflexion WFL. Ankle plantarflexion WFL. Strength: Right Lower Extremity: Hip flexors 4/5. Hip abductors 4/5. Knee flexors 3-/5. Knee extensors 3-/5. Ankle dorsiflexors 4/5. Ankle plantarflexors 4/5. Left Lower Extremity:Hip flexors 5/5. Hip abductors 5/5. Knee flexors 5/5. Knee extensors 5/5. Ankle dorsiflexors 5/5. Ankle plantarflexors 5/5. Sensation: R medial knee numb otherwise intact as to pain and light pressure in B LE although sensorium impaired due to drowsiness Bed Mobility/Transfers: Minimal cueing provided for use of B hands as needed for support, movement sequence, AD management, and and posture to reduce fall risk and minimize pain report. Stand to sit minimal assist of 2 Bed to chair minimal assist of 2 Gait: Facilitated safe and correct performance of level surface ambulation using front-wheeled walker covering a distance of about 50 feet with minimal assist of 2 and wheelchair follow of MARIBELL Frazier, providing stand by assist too as he looks worried about how his will do. R quad activation impaired, patient had buckling of R knee x 3 during which necessitated sitting down onto chair for safety despite moderate cueing to take smaller step with F foot to allow the R quad to work on a shorter lever arm thus minimizing buckling. Patient reported being nauseated when she sat back down onto chair. Stairs: After resting for about 5 minutes, patient was asked to step up with the good L leg and then step back down with the R affected leg just to prepare her for negotiating the whole stairs if found safe. She was asked to rest about 3 minutes before trying a the whole stairs. She buckled as she was trying bring the R LE after ascending with the good L LE first. PT provided moderate assist along with MARIBELL Kelly and Elijah to prevent LOB. Balance: Static Sitting: Normal Dynamic Sitting: Normal Static Standing: Fair Dynamic Standing: Poor Special Tests: Mobility Limitations Standardized Measure [facility] AM-PAC 6 clicks Basic Mobility Inpatient Short Form: Raw Score: 13 CMS Score: 65% deficit Informed Consent/Education: Patient instructed in purpose of PT consult. Packet containing TKA exercise protocol has been given to patient and patient's . Education and training on initial set of exercises that can be done at home have been completed with patient before walking assessment/training. Education on stair negotiation has also been done with . Trained patient with correct performance of exercises below to maximize motor control, joint flexibility, soft tissue extensibility of the R knee musculature. Supine quads sets x 5 with 5 sh Supine heels slides x 5 Supine ankle DF/PF x 10 Small range straight leg raise x 5 Seated marches x 5 ASSESSMENT: Decreased mental awareness, nausea, decreased sensation in R knee, and drowsiness limited ability of patient to optimize quad activation during mobility assessment. Buckled minimally x 3 on level surface and then significantly buckled x 1 while doing stairs that needed extensive assist from PT and nursing staff to prevent a fall. Increased risk for falls high at home due to decreased level of alertness/drowsiness, impaired quad activation on R, lack of rails on either side of entrance steps at home, and high BMI. Recommend overnight stay for close monitoring of patient and further functional mobility training prior to discharge home. Patient presents with clinical signs and symptoms consistent with current/admitting diagnoses that have resulted to mobility limitations, gait instability, generalized weakness, and impairment of motor control as demonstrated by the following impairment level findings: 1. Decreased strength to R knee major muscle groups increasing risk for buckling/impaired quad activation 2. Impaired standing balance 3. Limitation of joint range of motion in R knee Impairments are contributing to the following functional limitations: 1. Inability to safely ambulate without assistive device 2. Increase completion time for mobility ADL performance 3. Increased fall risk Patient is assessed as a 76671 moderate complexity based on the following: History: 62-year-old female with impairment level findings, functional limitations, and past medical history as indicated above Examination: Demonstrable impairment in strength, balance, and mobility level with underlying impairments and functional limitations as documented above Presentation: Evolving Decision Makin moderate complexity Goals: N/A. PT evaluation and 1-2 treatment sessions only for functional mobility training using recommended AD and for HEP instruction. Plan of Care/Treatment Plan: N/A. PT evaluation and 1-2 treatment session only for functional mobility training using recommended AD and for HEP instruction. DISCHARGE RECOMMENDATIONS: Continued PT for functional mobility training to increase safety of transfer and ambulation performance. Will re-evaluate tomorrow morning as ordered. TREATMENT CODE/TIME: 43374 x 15 minutes for 1 unit, 50050 x 27 minutes for 2 units beginning at 15:01 PM. Thank you for the opportunity to participate in the care of this patient. Please sign an return this page within 30 days if you agree with the above POC. Thank you! Physician Signature Date [facility]
[2023-03-16] MEDS: Droperidol 5 MG/2 ML VIAL 0.625 MG IVP (16:06)
[2023-03-16] MEDS: Normal Saline Flush 10 ML SYR IV (16:09)
[2023-03-16] MEDS: ceFAZolin 1 GM/50 ML BAG IVPB (18:24)
[2023-03-16] MEDS: Celecoxib 200 MG CAP PO (19:20)
[2023-03-16] MEDS: Aspirin E.C. 81 MG TABEC PO (19:20)
--- NOTE | 2023-03-16 20:36 | RESPIRATORY ---
RT seen pt. for DOROTHEA diagnosis. Pt. states she has HU but did not bring here and will be okay without it tonight. Rt advised pt. to use hospital's Bipap machine but Pt. refused it this time. RT has suggested pt. to use one that [facility] provides if she changes her mind.
[2023-03-16] MEDS: Amitriptyline 50 MG TAB 100 MG PO (21:11)
[2023-03-16] MEDS: amLODIPine 5 MG TAB PO (21:11)
[2023-03-16] MEDS: Atorvastatin 20 MG TAB PO (21:11)
[2023-03-17 02:43] VITALS: BP 117/69; PULSE 83; RESP 18; TEMP 36.7; O2SAT 96
[2023-03-17] MEDS: Normal Saline Flush 10 ML SYR IV (02:43)
[2023-03-17] MEDS: ceFAZolin 1 GM/50 ML BAG IVPB (02:43)
--- NOTE | 2023-03-17 08:14 | W.PM.DS.N ---
Date of service: 03/17/23 Time of Service: 07:25 DS: Diagnosis Discharge Diagnosis (1) Arthritis of right knee: Status: Acute Discharge Plan Disposition Patient Disposition: Home Condition: Good Discharge Details Reason For Visit: Right knee DJD Admit Date/Time: 03/16/23 15:52 Admit Provider: Say Ramos Attending Provider: Say Ramos Primary Care Provider: Luma Madrid [facility] Course Hospital Course: Patient was admitted to the medical/surgical floor following the procedure. The surgery was tolerated well without any notable medical, surgical, or anesthetic complications. Mobilization began postoperatively. She was voiding spontaneously. Vitals were stable. Physical therapy worked with the patient and was cleared for discharge home. No acute medical issues. Pain was controlled on oral regimen. Home Meds and New Rx's Prescriptions: New celecoxib [Celebrex] 200 mg capsule 200 mg PO BID PRNQty: 60 0RF Rx Instructions: Take one tablet twice daily for pain and inflammation aspirin 81 mg tablet,delayed release (DR/EC) 81 mg PO BID 30 Days Qty: 60 0RF acetaminophen 500 mg tablet 1,000 mg PO Q8H PRN Qty: 90 0RF Rx Instructions: Take two tablets up to every 8 hours as needed for pain dexamethasone 4 mg tablet 4 mg PO DAILY Qty: 2 0RF Rx Instructions: Take one tablet once daily for two days docusate sodium [Colace] 100 mg capsule 100 mg PO BID Qty: 30 0RF gabapentin 300 mg capsule 300 mg PO QHS Qty: 14 0RF Rx Instructions: Take one tablet at bedtime oxycodone 5 mg tablet 5 mg PO Q4H PRNQty: 18 0RF Rx Instructions: Take one tablet up to every 4 hours as needed for severe postoperative pain Continued multivitamin [Daily Multi-Vitamin] 1 EACH tablet 1 ea PO DAILY Gummi fiber chew 2 tab.chew PO BID hydroxyzine HCl 25 mg tablet 25 mg PO QHS PRN atorvastatin 20 mg tablet 20 mg PO QHS omeprazole 20 MG capsule,delayed release(DR/EC) 20 mg PO DAILY@0730 melatonin 5 mg tablet 5 mg PO HS PRN Discontinued diclofenac potassium 50 mg tablet 50 mg PO QID Patient Comments: Does not always work No Action amitriptyline 100 mg tablet 100 mg PO DAILY Patient Comments: TAKE ONE TABLET BY MOUTH AT BEDTIME amlodipine 5 mg tablet 5 mg PO DAILY Patient Comments: TAKE ONE TABLET BY MOUTH EVERY DAY Discharge Instructions Additional Instructions: Total Knee Discharge Instructions Activity: The most important activity is to walk and to work on gentle motion (both flexion and extension). You should try to take short walks a few times a day. It is important that when resting you work on keeping the knee straight. Avoid putting a pillow behind the knee as this will encourage flexion. Work on range of motion exercises as provided by Physical Therapy. - Start outpatient physical therapy within 2 weeks. - You should wear the EVANS hose on both legs for 2 weeks. You may remove these at night. You may also use any compression sock in place of the EVANS hose. - Utilize [employer] to review exercises, see videos on exercises and obtain basic information pertaining to your surgery and your recovery. Dressing: Remove the Kyle wrap by 2 days after your surgery and put on the EVANS stocking given to you from the hospital. Keep the surgical dressing (underneath the KYLE wrap) in place for at least one week. After the first week it may be removed and replaced with light gauze and tape or nothing. The wound and dressing may get wet after 3 days but avoid soaking the dressing or otherwise it will need to be changed. Many people prefer covering the dressing with cling wrap (saran wrap) to minimize it from getting soaked. If it gets wet, just pat dry. If it starts to peel off then it will need to be changed. Medications: - You should take Tylenol and anti-inflammatory Celebrex as your primary pain control medications. If the Celebrex is too expensive or not covered, please call the office for another alternative (Advil/Ibuprofen or Naproxen/Aleve) - You have been prescribed a stronger pain medication Oxycodone for breakthrough pain, take as needed as prescribed. - You take a stomach acid reduction agent Omeprazole at baseline - continue with this medication to help reduce stomach acid and reflux. - You have been prescribed Gabapentin to take at night for restlessness and nerve pain. - You will be taking Aspirin 81mg twice a day for DVT prevention unless instructed otherwise. - You have also been prescribed Decadron to take to control post-operative nausea and pain. You will start this tomorrow. - If you have constipation you should take Colace (which has been prescribed) or Miralax (which is avaialble [id number]-[id number]). It takes most people 3-4 days to have a bowel movement. Follow-up: 2 weeks If you have any acute concerns or questions, please do not hesitate to contact the office at [phone]. You may contact Dr. Ramos with any questions after hours through the hospital at [phone] or on his cell phone at [phone]. Stand Alone Forms: Anesthesia Discharge Inst., [place].Nerve Block Instructions, Evelina Haque (DSU) Referrals: Say Ramos MD [ [facility] STAFF PHYSICIAN] - 03/29/23 10:00 am Activity:: Activity as Tolerated Equipment/Supplies:: Walker Diet:: As Tolerated Discharge Orders Discharge Orders: Discharge Order (Routine); Ordered 03/17/23 Ordered By: Say Ramos DS: Summary Time Spent with Patient providing and/or coordinating discharge services: Less than 30 minutes Status at Discharge Functional status at discharge: uses cane/walker Overall status at discharge: patient is progressing back to baseline Mental Status: mental status grossly normal Speech and Movement: speech and movement normal Mood: congruent mood Affect: normal affect Quality:SDOH Health Related Social Needs: No Data to Display Exam Narrative Exam Narrative: Sitting up in the hospital bed. No acute distress. Alert and orient x 3. Evaluation of the right leg shows clean dry and intact dressing. Straight leg raise intact. She has intact ankle dorsiflexion and plantarflexion. Sensation intact light touch over the deep and superficial peroneal nerve and tibial nerve. Psych Mental Status: mental status grossly normal Speech and Movement: speech and movement normal Mood: congruent mood Affect: normal affect DS: Data Vitals/I&O Vitals and I&O: Vital Signs Temperature 36.7 C 03/17/23 02:43 Temperature Source Tympanic 03/17/23 02:43 Pulse 83 03/17/23 02:43 Pulse Rhythm Regular 03/17/23 04:09 Respiratory Rate 18 03/17/23 02:43 Respiratory Effort Normal, Non-Labored 03/17/23 04:09 Respiratory Depth Normal 03/17/23 04:09 Respiratory Pattern Normal 03/17/23 04:09 Blood Pressure 117/69 03/17/23 02:43 Blood Pressure Mean 99 03/16/23 10:26 Blood Pressure Position Sitting 03/16/23 10:26 Pulse Oximetry 96 03/17/23 02:43 Respiratory End-tidal CO2 42 03/16/23 13:35 Oxygen Delivery Method Room Air 03/17/23 02:43 Oxygen Flow Rate 0 03/17/23 02:43 Pain Level 0 03/17/23 02:43 Comment Adductor canal block performed on left knee by Dawit DEVINE with Carlos Cox RN assisting. Pt quiet during procedure and visibly experiencing the effects of versed. Pt ressured by staff during the block procedure. Pt reports she is comfortable. No issues with the block. Pt denies metallic taste, ringing in ears or feeling unusual in any way post block. Pt provided with warm blankets, made comfortable. Arnaldo ESPINOSA stayed w/ pt until care handed over to Marleny Johnson RN. 03/16/23 10:26 Intake & Output 03/16/23 03/16/23 03/17/23 11:59 23:59 11:59 Intake Total 160 / 2043.333 1883.333 / 2043.333 350 / 350 Output Total 150 / 700 550 / 700 900 / 900 Balance 10 / 0662.348 1044.333 / 1343.333 -550 / -550 Weight 118.8 kg Intake: IV 160 / 3705.373 6023.333 / 1193.333 50 / 50 Oral 850 / 850 300 / 300 Output: Urine 550 / 550 900 / 900 Emesis 0 / 0 Estimated Blood Loss 150 / 150 Other: Urine Color Light Betsy Yellow Urine Appearance Clear Clear Urine Odor Normal Emesis Description None Voiding Methods Toilet Toilet PFSH All Active Problems Arthritis of right knee (Acute) s/p R TKA (03/16/23) DOROTHEA (obstructive sleep apnea) (Chronic) uses CPAP Right knee DJD (Chronic) Left knee DJD (Acute) Medical History Breast cancer Migraine (06/25/14) Surgical History Status post right breast lumpectomy Jaw fracture as a child required surgery S/P left knee arthroscopy section X 3 Abdominal hysterectomy EGD - IV Sedation (10/28/15) Family History Mother Parkinsons disease Father Alzheimers disease Social History Smoking/Tobacco Use Status: Former Tobacco Use Quit Date: 03/08/92 Smoking risk assessment performed?: Yes Alcohol Intake: never Drug use: Never Substance use type: does not use Housing: house Do you feel safe at home: Yes (unable to assess privately) Do you feel safe in your relationship?: Yes Time Spent with Patient Time Spent with Patient: <45 minutes Time was spent: obtaining and/or reviewing separately otained hiistory, ordering medications,tests, procedures and counseling the patient
[2023-03-17 08:15] VITALS: BP 119/76; PULSE 92; RESP 16; TEMP 36.9; O2SAT 98
[2023-03-17] MEDS: Acetaminophen 500 MG TAB 1000 MG PO (08:28)
[2023-03-17] MEDS: Dexamethasone 4 MG TAB PO (08:28)
[2023-03-17] MEDS: Multivitamin TAB 1 TAB PO (08:28)
[2023-03-17] MEDS: oxyCODONE 5 MG TAB PO ×2 (08:29→12:58)
[2023-03-17] MEDS: Omeprazole 20 MG CAPCR PO (08:29)
[2023-03-17] MEDS: Celecoxib 200 MG CAP PO (08:29)
[2023-03-17] MEDS: Aspirin E.C. 81 MG TABEC PO (08:29)
--- NOTE | 2023-03-17 10:37 | PT.INIE ---
PT Notes Visit Reasons: Right knee DJD Physical Therapy Inpatient Initial Evaluation Date: 03/17/2023 Referring Doctor: LESLIE Lopez PT Orders: PT CONSULT: S/P Ortho Surgery Precautions: WBAT on the R LE with AD. Patient Profile/Admitting Diagnosis: [place] is a 62-year-old female with degenerative joint disease of the right knee and status post right total knee arthroplasty on postoperative day 1. 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 Independent with all aspects of ADLs prior to surgery although has had worsening suture with mobility ADL performance due to arthritic process progression. Equipment Owned/DME: FWW, walking stick Subjective: Feels much better. Glad that she stayed overnight. Could not remember exercises given to her yesterday. reported mild lightheadedenss at outset but diminished with activity. Numbness in R medial knee resolved. Objective: General Observation: Resting on the recliner when PT came in. High BMI. Mental Status: A&O x 4 Pain: 5/10 at rest, 2-3/10 with walking ROM: Right Lower Extremity: Hip flexion WFL. Hip abduction WFL. Knee flexion 20 degrees to 100 degrees actively. Knee extension -20 degrees. Ankle dorsiflexion WFL. Ankle plantarflexion WFL. Left Lower Extremity: Hip flexion WFL. Hip abduction WFL. Knee flexion WFL. Ankle dorsiflexion WFL. Ankle plantarflexion WFL. Strength: Right Lower Extremity: Hip flexors 4/5. Hip abductors 4/5. Knee flexors 3-/5. Knee extensors 3-/5. Ankle dorsiflexors 4/5. Ankle plantarflexors 4/5. Left Lower Extremity:Hip flexors 5/5. Hip abductors 5/5. Knee flexors 5/5. Knee extensors 5/5. Ankle dorsiflexors 5/5. Ankle plantarflexors 5/5. Sensation: R medial knee numb otherwise intact as to pain and light pressure in B LE although sensorium impaired due to drowsiness Bed Mobility/Transfers: Minimal cueing provided for use of B hands as needed for support, movement sequence, AD management, and and posture to reduce fall risk and minimize pain report. Stand to sit standby assist Bed to chair standby assist Gait: Facilitated safe and correct performance of level surface ambulation using front-wheeled walker covering a distance of about 120 feet + 120 feet with standby assist without any wheelchair follow. No episodes of buckling throughout. Step to gait pattern. Minimal verbal cueing provided for limb advancement, AD management, and directional turns to minimize pain and reduce fall risk. Stairs: Guided patient with safe and correct negotiation of 6 x 4 inch steps and 4 x 6 inch steps while holding onto rail with 1 hand and using a single-point cane with the other hand with step to gait pattern requiring only standby assist with minimal verbal cueing provided for increased knee flexion on the right during each ascent and for overall safety. Balance: Static Sitting: Normal Dynamic Sitting: Normal Static Standing: Fair Dynamic Standing: Poor Special Tests: Mobility Limitations Standardized Measure [facility] AM-PAC 6 clicks Basic Mobility Inpatient Short Form: Raw Score: 13 CMS Score: 65% deficit Informed Consent/Education: Patient instructed in purpose of PT consult. Packet containing TKA exercise protocol has been given to patient and patient's . Education and training on initial set of exercises that can be done at home have been completed with patient before walking assessment/training. Education on stair negotiation has also been done with . Trained patient with correct performance of exercises below to maximize motor control, joint flexibility, soft tissue extensibility of the R knee musculature. Supine quads sets x 5 with 5 sh Supine heels slides x 5 Supine ankle DF/PF x 10 Small range straight leg raise x 5 Seated marches x 5 ASSESSMENT: Drowsiness resolved. level of alertness back to baseline. Good quad activation on R, no epsiodes of buckling seen throughout session. Patient presents with clinical signs and symptoms consistent with current/admitting diagnoses that have resulted to mobility limitations, gait instability, generalized weakness, and impairment of motor control as demonstrated by the following impairment level findings: 1. Decreased strength to R knee major muscle groups 2. Impaired standing balance 3. Limitation of joint range of motion in R knee Impairments are contributing to the following functional limitations: 1. Inability to safely ambulate without assistive device 2. Increase completion time for mobility ADL performance 3. Increased fall risk Patient is assessed as a 08163 moderate complexity based on the following: History: 62-year-old female with impairment level findings, functional limitations, and past medical history as indicated above Examination: Demonstrable impairment in strength, balance, and mobility level with underlying impairments and functional limitations as documented above Presentation: Evolving Decision Makin moderate complexity Goals: N/A. PT evaluation and 1-2 treatment sessions only for functional mobility training using recommended AD and for HEP instruction. Plan of Care/Treatment Plan: N/A. PT evaluation and 1-2 treatment session only for functional mobility training using recommended AD and for HEP instruction. DISCHARGE RECOMMENDATIONS: Home when medically cleared by orthopedic surgeon. Recommend outpatient PT services in order to optimize functional mobility outcomes and facilitate return to independent community ambulation without an assistive device. TREATMENT CODE/TIME: 23254 x 20 minutes for 1 unit, 84766 x 23 minutes for 2 units beginning at 9:49 AM. Thank you for the opportunity to participate in the care of this patient. Shanna Gonzalez PT, DPT, CLT [facility] [place], [place]
[2023-03-17 11:23] VITALS: BP 103/67; PULSE 86; RESP 18; TEMP 37.1; O2SAT 93
== END 2023-03-17 13:24 | disposition home or self-care (01) ==
LOC: MS 16:36
PROVIDERS: Admitting Provider Student in an Organized Health Care Education/Training Program; PCP Family Medicine; Visit Provider Student in an Organized Health Care Education/Training Program
PROC: (CPT 27447; principal; 2023-03-16 11:30)
DX: M17.11 Unilateral primary osteoarthritis, right knee (principal); G47.33 Obstructive sleep apnea (adult) (pediatric); Z85.3 Personal history of malignant neoplasm of breast; G43.909 Migraine, unspecified, not intractable, without status migrainosus
CPT/HCPCS: 27447; 76942; 96374; 96375; 97110; 97162; 97530; C1776; G0378; J0171; J0690; J1100; J1170; J1790; J2001; J2250; J2401; J2405; J2704; J3010; J8540

== ENCOUNTER 2023-03-29 15:46 | Outpatient (CLI) | payer OTHER, SELFPAY ==
--- NOTE | 2023-03-29 10:00 | DI.RAD_ITS ---
Exam(s) XR KNEE RT 1V XR STANDING ALIGNMENT EXAM: XR STANDING ALIGNMENT and XR knee RT 1 V CLINICAL HISTORY: 1ST POST OP S/P R TKA. TECHNIQUE: 2D digital imaging was performed. Four images were obtained. COMPARISON: CR XR STANDING ALIGNMENT from 03/11/2023 CR XR KNEE RT 1V from 03/11/2023 FINDINGS: BONES: There is joint space narrowing of the hips bilaterally. There are now postsurgical changes of a right total knee replacement. The orthopedic hardware appears in good position. There are marked degenerative changes seen in the left knee with joint space narrowing and osteophytes. The findings are most marked in the medial femoral tibial joint. The ankles are well maintained.There is no sign ificant leg length discrepancy. SOFT TISSUE: Normal. IMPRESSION: 1. Stable right total knee replacement. 2. Marked degenerative changes in the left knee. DATA REPOSITORY: RADIATION DOSE DELIVERED:
== END 2023-03-29 15:47 | disposition home or self-care (01) ==
LOC: DIORS 15:47
PROVIDERS: PCP Family Medicine; Visit Provider Student in an Organized Health Care Education/Training Program
DX: Z96.651 Presence of right artificial knee joint (principal); Z47.1 Aftercare following joint replacement surgery
CPT/HCPCS: 73560; 77073

== ENCOUNTER 2023-04-26 04:50 | Outpatient (CLI) | payer OTHER, SELFPAY ==
[2023-04-26 11:42] LABS: HCT 40.4 % (36.0-46.0); HGB 13.1 g/dL (11.2-15.7); MCH 28.9 pg (27.0-33.0); MCHC 32.4 % (32.0-36.0); MCV 89 fL (80-95); MPV 10.3 fL (8.0-11.0); Platelet Count 292 10^3/uL (130-400); RBC 4.53 10^6/uL (3.93-5.22); RDW 14.4 % (11.7-14.6); RDW-SD 47.7 fL; WBC 8.95 10^3/uL (4.4-10.8)
[2023-04-26 11:55] LABS: Anion Gap 9.3 mmol/L (3-11); BUN 12 mg/dL (7-18); CO2 28.7 mmol/L (21.0-32.0); CREATININE 0.9 mg/dL (0.55-1.02); Calcium 9.5 mg/dL (8.5-10.1); Chloride 103 mmol/L (98-107); Estimated GFR 73.19 (mL/min/1.73m2); Glucose 113 mg/dL (74-106); Potassium 3.9 mmol/L (3.5-5.1); Sodium 141 mmol/L (136-145)
== END 2023-04-26 04:51 | disposition home or self-care (01) ==
LOC: LBO 04:50
PROVIDERS: PCP Family Medicine; Visit Provider Student in an Organized Health Care Education/Training Program
DX: M17.12 Unilateral primary osteoarthritis, left knee (principal); Z01.818 Encounter for other preprocedural examination
CPT/HCPCS: 36415; 80048; 85027

== ENCOUNTER 2023-04-27 07:07 | Day surgery (SDC) | payer OTHER, SELFPAY ==
[2023-04-27] VITALS (12 sets, daily range): BP systolic 117–156; BP diastolic 52–88; PULSE 79–94; RESP 14–20; TEMP 36.1–37.1; O2SAT 95–100; BMI 42.3
--- NOTE | 2023-04-27 06:22 | W.ANESPRE ---
General Info Date of Service Date Performed: 04/27/23 Height: 5 ft 6 in Weight: 118.8 kg Body Mass Index (BMI): 42.3 Surgical Procedure: Operation Date: 04/27/23 10:40 Proposed Procedure Side Surgeon p Knee Total Arthroplasty, Cementless CR Left Say Ramos MD Meds Allergies and Home Medications Allergies Allergy/AdvReac Type Severity Reaction Status Date / Time No Known Allergies Allergy Verified 04/27/23 07:24 Home Medication Medication Instructions Recorded Gummi Fiber Chew 2 tab.chew PO BID 09/03/14 multivitamin (Daily Multi-Vitamin 1 ea PO DAILY 09/03/14 tablet) omeprazole 20 mg capsule,delayed 20 mg PO DAILY@0730 10/28/15 release atorvastatin 20 mg tablet 20 mg PO QHS 01/27/23 hydroxyzine HCl 25 mg tablet 25 mg PO QHS PRN 01/27/23 melatonin 5 mg tablet 5 mg PO HS PRN 03/15/23 amitriptyline 100 mg tablet 100 mg PO DAILY 03/16/23 amlodipine 5 mg tablet 5 mg PO DAILY 03/16/23 acetaminophen 500 mg tablet 1,000 mg (2 x 500 mg) PO Q8H PRN 04/27/23 pain #90 tabs aspirin 81 mg tablet,delayed 81 mg PO BID 30 days #60 tabs 04/27/23 release celecoxib 200 mg capsule (Celebrex) 200 mg PO BID PRN #60 caps 04/27/23 dexamethasone 4 mg tablet 4 mg PO DAILY #2 tabs 04/27/23 docusate sodium 100 mg capsule 100 mg PO BID #30 caps 04/27/23 (Colace) gabapentin 300 mg capsule 300 mg PO QHS #14 caps 04/27/23 oxycodone 5 mg tablet 5 mg PO Q4H PRN #18 tabs 04/27/23 Current Visit Medications: Current Medications Generic Name Dose Route Start Last Admin Trade Name Freq PRN Reason Stop Dose Admin Acetaminophen 1,000 mg 04/27/23 06:00 Acetaminophen 500 Mg Tab PO 04/27/23 16:00 PREOP NAMRATA Celecoxib 400 mg 04/27/23 06:00 Celecoxib 200 Mg Cap PO 04/27/23 16:00 PREOP NAMRATA Gabapentin 300 mg 04/27/23 06:00 Gabapentin 300 Mg Cap PO 04/27/23 16:00 PREOP NAMRATA Tranexamic Acid 1,000 mg/ 60 mls @ 360 mls/hr 04/27/23 06:00 Sodium Chloride IVPB 04/27/23 16:00 PREOP NAMRATA Ringer's Solution 1,000 mls @ 80 mls/hr 04/27/23 06:00 IV 04/27/23 23:59 INFUSION NAMRATA Cefazolin Sodium 3,000 mg/ 100 mls @ 200 mls/hr 04/27/23 06:00 Sodium Chloride IV 04/27/23 16:00 PREOP NAMRATA IV Miscellaneous Supplies 1 each 04/27/23 06:00 Iv Access IV 04/27/23 23:59 DIRECTED NAMRATA Sodium Chloride 0 ml 04/27/23 06:00 Normal Saline Flush 10 Ml Syr IV 04/27/23 23:59 PRN PRN Sodium Chloride 0 ml 04/27/23 06:00 Normal Saline 10 Ml Vial IJ 04/27/23 23:59 DIRECTED PRN Sterile Water 0 ml 04/27/23 06:00 Water,Injection,Sterile 10 Ml Vial IJ 04/27/23 23:59 DIRECTED PRN PFSH Active Problems Active Problems: Problem Status Onset Code History of right knee joint replacement 03/16/23 Z96.651 DOROTHEA (obstructive sleep apnea) G47.33 Left knee DJD M17.12 Medical History Medical History Breast cancer Migraine (06/25/14) Surgical History Surgical History Status post right breast lumpectomy Jaw fracture as a child required surgery S/P left knee arthroscopy section X 3 Abdominal hysterectomy EGD - IV Sedation (10/28/15) Tobacco Smoking/Tobacco Use Status: Former Tobacco Use Alcohol Alcohol Intake: never Substance Use Substance use: Never Substance use type: does not use Vital Signs and Lab Results Vital Signs Most Recent Vital Signs in EMR: Temp Pulse Resp BP Pulse Ox 36.6 C 94 H 16 156/88 H 100 04/27/23 07:09 04/27/23 07:09 04/27/23 07:09 04/27/23 07:09 04/27/23 07:09 Lab Results Blood Type / Crossmatch: No Data to Display Complete Blood Count: White Blood Count 8.95 10^3/uL (4.4-10.8) 04/26/23 11:18 Red Blood Count 4.53 10^6/uL (3.93-5.22) 04/26/23 11:18 Hemoglobin 13.1 g/dL (11.2-15.7) 04/26/23 11:18 Hematocrit 40.4 % (36.0-46.0) 04/26/23 11:18 Platelet Count 292 10^3/uL (130-400) 04/26/23 11:18 Complete Metabolic Panel: Sodium 141 mmol/L (136-145) 04/26/23 11:18 Potassium 3.9 mmol/L (3.5-5.1) 04/26/23 11:18 Chloride 103 mmol/L (98-107) 04/26/23 11:18 Carbon Dioxide 28.7 mmol/L (21.0-32.0) 04/26/23 11:18 BUN 12 mg/dL (7-18) 04/26/23 11:18 Creatinine 0.9 mg/dL (0.55-1.02) 04/26/23 11:18 Est GFR (CKD-EPI 2020) 73.19 (mL/min/1.73m2) 04/26/23 11:18 Calcium 9.5 mg/dL (8.5-10.1) 04/26/23 11:18 Glucose 113 mg/dL (74-106) H 04/26/23 11:18 Liver Function Panel: No Data to Display Coagulation Panel: No Data to Display Cardiac Panel: No Data to Display Arterial Blood Gas: No Data to Display Venous Blood Gas: No Data to Display Pancreas Panel: No Data to Display Thyroid Panel: No Data to Display Infectious Disease: No Data to Display Blood Cultures: No Data to Display Toxicology Panel: No Data to Display Anesthesia Assessment and Plan Anesthesia History Personal History: No History of Anesthesia Complications Family History: No Family History of Anesthesia Complications Exercise Tolerance Exercise Tolerance: Metabolic Equivalents>4 Cardiac & Pulmonary Exam Cardiac Exam: Normal S1/S2 Heart Sounds Pulmonary Exam: Clear Bilateral Breath Sounds Implantable Cardiac Device Does patient have a Pacemaker or an ICD?: No Airway Exam Known Difficult Airway: No Mallampati Class: 3 Mouth Opening: Normal (> 3cm) Thyromental Distance: Greater than 3 cm Neck Range of Motion: Full ROM Neck Circumference: Normal Teeth Condition: Normal Dentition ASA Classification ASA Score: ASA 3 Emergency Case?: No NPO Status NPO Status: NPO Clears >2 hours, Solids >8 hours Anesthesia Plan Resuscitation Status: Full Code Anesthesia Technique: General Anesthesia Airway Planned: Endotracheal Tube Pain Management: Surgeon and patient request nerve block Monitors Used: Standard Monitors Preoperative Comments:: 62 yo female for TKA. Sig PMHx: HTN (amlodipine), GERD (on PPI, has to sleep with HOB slightly elevated), DOROTHEA (uses CPAP), jaw fracture as child, GERD, former smoker (quit 1992), A1c 5.9 05/28, Previous Anes: - TKA, midaz/prop, glide 3 grade 1, masked with OPA. adductor with 3 mg midaz.
--- NOTE | 2023-04-27 07:48 | W.PM.DSUDISC ---
Date of service: 04/27/23 Time of Service: 12:23 Discharge Plan Disposition Patient Disposition: Home Condition: Good Discharge Details Reason For Visit: Left knee DJD Attending Provider: Say Ramos Primary Care Provider: Luma Madrid Home Meds and New Rx's Prescriptions: New celecoxib [Celebrex] 200 mg capsule 200 mg PO BID PRNQty: 60 0RF Rx Instructions: Take one tablet twice daily for pain and inflammation aspirin 81 mg tablet,delayed release (DR/EC) 81 mg PO BID 30 Days Qty: 60 0RF acetaminophen 500 mg tablet 1,000 mg PO Q8H PRN Qty: 90 0RF Rx Instructions: Take two tablets up to every 8 hours as needed for pain dexamethasone 4 mg tablet 4 mg PO DAILY Qty: 2 0RF Rx Instructions: Take one tablet once daily for two days docusate sodium [Colace] 100 mg capsule 100 mg PO BID Qty: 30 0RF gabapentin 300 mg capsule 300 mg PO QHS Qty: 14 0RF Rx Instructions: Take one tablet at bedtime oxycodone 5 mg tablet 5 mg PO Q4H PRNQty: 18 0RF Rx Instructions: Take one tablet up to every 4 hours as needed for severe postoperative pain Continued multivitamin [Daily Multi-Vitamin] 1 EACH tablet 1 ea PO DAILY Gummi fiber chew 2 tab.chew PO BID hydroxyzine HCl 25 mg tablet 25 mg PO QHS PRN atorvastatin 20 mg tablet 20 mg PO QHS omeprazole 20 MG capsule,delayed release(DR/EC) 20 mg PO DAILY@0730 melatonin 5 mg tablet 5 mg PO HS PRN amitriptyline 100 mg tablet 100 mg PO DAILY Patient Comments: TAKE ONE TABLET BY MOUTH AT BEDTIME amlodipine 5 mg tablet 5 mg PO DAILY Patient Comments: TAKE ONE TABLET BY MOUTH EVERY DAY Discontinued oxycodone 5 mg tablet 5 mg PO Q8H MDD 4 tabs PRN (Reason: pain) Qty: 15 0RF Rx Instructions: Take one tablet up to every 8 hours as needed for severe postoperative pain celecoxib [Celebrex] 200 mg capsule 200 mg PO BID PRN (Reason: pain) Qty: 60 0RF Rx Instructions: Take one tablet twice daily for pain and inflammation acetaminophen 500 mg tablet 1,000 mg PO Q8H PRN Qty: 90 0RF Rx Instructions: Take two tablets up to every 8 hours as needed for pain docusate sodium [Colace] 100 mg capsule 100 mg PO BID Qty: 30 0RF gabapentin 300 mg capsule 300 mg PO QHS Qty: 14 0RF Rx Instructions: Take one tablet at bedtime Discharge Instructions Additional Instructions: Total Knee Discharge Instructions Activity: The most important activity is to walk and to work on gentle motion (both flexion and extension). You should try to take short walks a few times a day. It is important that when resting you work on keeping the knee straight. Avoid putting a pillow behind the knee as this will encourage flexion. Work on range of motion exercises as provided by Physical Therapy. - Start outpatient physical therapy within 2 weeks. - You should wear the EVANS hose on both legs for 2 weeks. You may remove these at night. You may also use any compression sock in place of the EVANS hose. - Utilize [employer] to review exercises, see videos on exercises and obtain basic information pertaining to your surgery and your recovery. Dressing: Remove the Kyle wrap by 2 days after your surgery and put on the EVANS stocking given to you from the hospital. Keep the surgical dressing (underneath the KYLE wrap) in place for at least one week. After the first week it may be removed and replaced with light gauze and tape or nothing. The wound and dressing may get wet after 3 days but avoid soaking the dressing or otherwise it will need to be changed. Many people prefer covering the dressing with cling wrap (saran wrap) to minimize it from getting soaked. If it gets wet, just pat dry. If it starts to peel off then it will need to be changed. Medications: - You should take Tylenol and anti-inflammatory Celebrex as your primary pain control medications. If the Celebrex is too expensive or not covered, please call the office for another alternative (Advil/Ibuprofen or Naproxen/Aleve) - You have been prescribed a stronger pain medication Oxycodone for breakthrough pain, take as needed as prescribed. - You will continue with your stomach acid reduction agent Omeprazole to help reduce stomach acid and reflux. - You have been prescribed Gabapentin to take at night for restlessness and nerve pain. - You will be taking Aspirin 81mg twice a day for DVT prevention unless instructed otherwise. - You have also been prescribed Decadron to take to control post-operative nausea and pain. You will start this tomorrow. - If you have constipation you should take Colace (which has been prescribed) or Miralax (which is available [id number]). It takes most people 3-4 days to have a bowel movement. Follow-up: 2 weeks If you have any acute concerns or questions, please do not hesitate to contact the office at [phone]. You may contact Dr. Ramos with any questions after hours through the hospital at [phone] or on his cell phone at [phone]. Referrals: Say Ramos MD [ [facility] STAFF PHYSICIAN] - Equipment/Supplies: Walker Activity:: Elevate Remove Dressings/Wound Care:: Do Not Remove Shower/Bathe:: 72 hours and Cover Diet:: As Tolerated Discharge Orders Discharge Orders: Discharge Order (Routine); Ordered 04/27/23 Ordered By: Ellen Smith
[2023-04-27] MEDS: Acetaminophen 500 MG TAB 1000 MG PO (08:08)
[2023-04-27] MEDS: Celecoxib 200 MG CAP 400 MG PO (08:08)
[2023-04-27] MEDS: Gabapentin 300 MG CAP PO (08:08)
[2023-04-27] MEDS: Lactated Ringers 1,000 ML 80 ML IV (08:55)
--- NOTE | 2023-04-27 10:04 | W.ANESVAS ---
Midline Placement Date Performed: 04/27/23 Procedure Time: 08:30 Requesting Provider: Carl Montoya Procedure Location: Day Surgery Unit Sedation Given (Indicate Dose Given): No Sedation given Patient Mental Status: Awake Sterility: Hand Hygiene, Surgical Cap and Chlorhexidine Laterality: Right Insertion Site: Other (median cubital below the AC. ) Midline Device: PowerGlide Pro 20G Catheter Length: 10 cm Midline Procedure Procedure: 1% Lidocaine to skin and subcutaneous tissue with 25g needle Dressing: Tegaderm Applied and Statlock Applied Blood Return: Present Flushes: Easily Ultrasound: Sterile probe cover and gel used Ultrasound Image Saved?: Yes Number of Attempts (See previous attempts in note section): 1 Procedure Tolerated: No Complications Procedure Outcome: Successful Performed By: Carl Montoya
--- NOTE | 2023-04-27 10:08 | W.ANESNERVE ---
Nerve Block Single Injection Procedure Date and Time Date Performed: 04/27/23 Procedure Start: 08:45 Location Where Procedure Performed Procedure Location: Day Surgery Unit Reason Performed: Postoperative Analgesia Requesting Provider: Say Ramos Timeout Performed Timeout Performed: Yes Monitoring Used ECG, Blood Pressure and SpO2 Sterility Sterility: Hand Hygiene, Surgical Cap, Surgical Mask, Sterile Gloves and Chlorhexidine Sedation Given During Procedure Sedation Given (Indicate Dose Given): Versed IV Dose:: 2 mg Patient Mental Status Patient Mental Status: Awake Nerve Block 1st Nerve Block: Laterality: Left Block Type: Adductor Canal Ultrasound Image Saved?: Yes Needle / Catheter Used: 100mm SonoPlex II Local Anesthetic Bolus (Indicate Dose Given): Lidocaine used for local infiltration of skin and Bupivacaine 0.25% Dose:: 10 mL Additives (Indicate Dose Given): None Ultrasound: Sterile probe cover and gel used Nerve Stimulator: Supplement to Ultrasound use and No twitch or parasthesia noted < 0.5 mA Paresthesia: None Procedure Tolerated: No Complications Procedure Outcome: Successful Performed By: Carl Montoya
[2023-04-27] MEDS: ceFAZolin 3,000 MG in Normal Saline 100 ML 200 MG IV (11:22)
[2023-04-27] MEDS: HYDROmorphone 2 MG/ML SYR IVP ×3 (13:33→14:00)
[2023-04-27] MEDS: Normal Saline 10 ML VIAL IJ (13:33)
--- NOTE | 2023-04-27 13:47 | W.PM.OP ---
Date of service: 04/27/23 Time of Service: 11:45 Operative Note Operative Note DATE OF PROCEDURE: 04/27/23 PRE-OP DIAGNOSIS: Left Knee Osteoarthritis POST-OP DIAGNOSIS: same PROCEDURE: Left Total Knee Replacement SURGEON: Say Ramos COMMODITIES TRADER: Stacey Harden ANESTHESIA TYPE: Spinal Refer to Anesthesia Record ESTIMATED BLOOD LOSS: 200 PATHOLOGY: none sent TOURNIQUET TIME: 0 COMPLICATIONS: None Patient was transported to: PACU Patient's condition: stable Implants: 1. Depuy Attune Cementless Cruciate Retaining Femoral Component, Size 6 2. Depuy Attune Cementless Fixed Bearing Tibial Component, Size 5 3. Depuy Attune 6x10 CR/FB Poly 4. Depuy Attune Patellar Component, Size 35 Indications: I have seen [place] in clinic for symptoms of knee arthritis, confirmed with radiographic findings. She has exhausted nonoperative methods and was having significant limitations in daily function and desired better function and less pain. I discussed the technical details of a knee replacement. She had a successful knee replacement on the right side 6 weeks prior. I explained the risks of the procedure to include, but not limited to, bleeding, infection, pain, stiffness, fracture, damage to nerves and vessels, damage to muscles and tendons, loosening, need for repeat procedure, blood clot and cardiopulmonary demise. Despite these risks, [place] elected to proceed. Findings: There was significant signs of arthritis throughout the knee with notable loss of cartilage throughout and large osteophytes. Procedure Description: [place] was greeted in the preoperative holding area where the correct side was identified and marked. The consent was reviewed with the patient and signed. The history and physical was updated. All questions were answered. Preoperative medications were administered: Acetaminophen 1000mg, Celebrex 400mg, and Gabapentin 300mg. An adductor canal block was then administered by the anesthesia team in the PACU. [place] was taken back to the operating room. A general anesthestic was then administered. The patient was placed into the supine position on the operating room table. A nonsterile tourniquet was placed high onto the leg but only used for cementing. Posts were placed for positioning during the procedure. All bony prominences were well padded. Prophylactic antibiotics in the form of Cefazolin were administered. 1g of Tranxemic Acid was given intravenously within 30 minutes of incision. The left leg was then prepped with Chloraprep and draped in a standard fashion with impervious stockinette. A second prep with Chloraprep was performed prior to application of Iodine impregnated skin protection. A timeout to confirm correct identity, side and site, procedure, allergies, anesthesia, and medical concerns was performed. With the knee in some flexion, a midline incision was made overlying the knee. Full thickness skin flaps were raised once the extensor mechanism was encountered. These were raised medially and laterally. Any bleeding was controlled with electrocautery. Once the extensor mechanism was fully exposed, a medial parapatellar arthrotomy was performed in a flexed position. All bleeding from the arthrotomy and the geniculate arteries was coagulated. A medial subperiosteal peel was performed with electrocautery to the midcoronal plane. Due to the significant varus deformity the entire medial tibial plateau was exposed. The fat pad was removed while keeping the patellar tendon protected. The anterior distal femur synovium was removed for later visualization. The ACL and PCL were resected and the anterior horn of the lateral meniscus was transected. The knee was then flexed with the patella everted. Large osteophytes from the tibia were removed. Large osteophytes from the femur were removed. Using a step drill, and based on preoperative templating, the femoral canal was entered. This was done with a step drill without any difficulty. The intramedullary distal femoral cut guide was inserted, set to a 5 degree valgus cut and 9mm cut thickness. The distal femoral cut guide was then held in position and pinned. With the soft tissues protected, the distal cut was performed. This was passed over a few times to ensure a planar cut. I then turned attention to the tibia. The extramedullary guide was placed onto the leg. The distal aspect was slid medial to adjust for position of center of ankle and stay in line with shaft of the tibia. Approximately 3-5 degrees of posterior slope was kept in the proximal cutting guide. The center of the guide was aligned with the PCL. The stylus was used to assess cut thickness. The medial side, most involved side, was set for a 6mm cut, corresponding to 9mm laterally. This was then held in position and pinned into place with 2 additional pins and a cross pin for stability. The medial and lateral collateral ligaments were protected and the cut was performed. With this completed, it was assessed and noted to be of appropriate dimensions. The guide was removed. A spacer block was inserted and the knee was brought into extension. The 8mm spacer block provided full extension, without hyperextension and with stability of both the medial and lateral collateral ligaments was assessed. The pins from the femur and the tibia were then removed. The distal femur was then sized. The anterior stylus was placed onto the lateral ridge of the anterior femur. This indicated a size 6 femur. The external rotation of the guide was adjusted to 0 degrees to match the epicondylar axis, perpendicular to Soha?s line. The 4-in-1 cutting guide was the placed. The posterior medial femur cut was evaluated and appeared of good thickness. The spacer block was inserted underneath the cutting guide and stability was confirmed in 90 degrees of flexion. An kp wing was used to confirm appropriate position of the anterior cut to avoid notching. This cutting guide was ensured to be flush on the cut surface and then pinned into place with headed pins. While protecting the soft tissues, quad tendon, and collateral ligaments, the anterior and posterior cuts were performed with a saw. The central two pins were removed and the posterior and anterior chamfers were cut next. The notch-cutting guide was placed. This was pinned to lateralize the femoral component as much as possible while keeping it flush on the cut surface. This was then pinned into position. A reciprocating saw was used to make the notch cut. A rasp smoothed the cut surfaces. The medial and lateral menisci were removed. A trial femoral component was then inserted, impacted down to the cut surfaces, and the lug holes were drilled. A provisional trial tibial component was placed and the knee was brought through range of motion. There was noted to be excellent extension and flexion. There was no significant instability. The polyethylene was trialed until there was good flexion and extension with excellent stability to the medial and lateral collaterals. The patella was tracking without thumbs. A size 10mm polyethylene component provided the best range of motion and stability with less than 2mm gapping with medial and lateral stress and full extension without significant hyperextension. The tibial cut surface was fully exposed. The tibia was then sized as a 5. The tibia had been previously marked during trialing to correspond to the center of the tibial component to help with rotation. The trial was aligned to this dedrick, approximately rotated to the medial 1/3rd of the tibial tubercle. The trial was pinned into place. The tibia was prepared with a reamer and a keel punch and lug holes. The knee was then brought into extension and the patella was measured as 25mm. Using the patellar clamp and cut guide, this was resected to a flat surface with at least 13mm of thickness remaining. The size 35 patella fit the best. This was oriented and then clamped into position. The lugs were drilled. The trial components were removed. The final components were opened on the back table. The periosteal and capsular tissues, especially posteriorly, around the knee were then systematically injected with a periarticular cocktail consisting of 246mg of Ropivacaine, 0.5mg of Epinephrine, 0.08mg of Clonidine, and 30mg of Ketorolac, diluted to 100cc. On the back table, with the implants opened, the cement was mixed. One batch of high viscosity cement was prepared with vacuum assistance. After the cement was ready a small amount was placed on the cut surface of the patella and the patellar button was clamped into position and held. While the cement was hardening, the cementless knee components were placed. Starting with the tibial component, the tibia was subluxed anteriorly and the lug holes of the component were lined up. The tibia was then impacted with an impactor and mallet until the tibial component was in contact with the tibia. The final polyethylene component was inserted. Then, the femoral component was inserted. The lug holes were aligned and the component was impacted into position. The knee was irrigated with Surgiphor Betadine solution. This was allowed to sit in the knee for 3 minutes and then it was irrigated out with saline. After the cement had finally cured, approximately 15min, the clamp was removed from the patella and the knee was taken through range of motion. The patella was tracking with a no-thumbs technique. The trial poly was removed and the real component inserted. The capsule was then reapproximated with a No. 1 Vicryl at multiple locations. The capsule was finally closed with a No. 2 Stratafix, barbed suture. The second dosing of 1g TXA was started. Deep tissues were then reapproximated with 0 Vicryl and 2-0 Vicryl. The skin was closed with a running 3-0 Monocryl in a subcuticular fashion. This was reinforced with skin glue. A Mepilex silver dressing was applied along with a [id number] TRAVIS wrap. A CryoCuff was applied. [place] was transferred to the hospital bed without difficulty an suffering no apparent complication. [place] has a good prognosis. Physical therapy will start today and without restrictions, weight-bearing as tolerated. Aspirin 81mg BID will be used for DVT prophylaxis.
--- NOTE | 2023-04-27 14:19 | W.ANESPOSTOP ---
Postoperative Evaluation Date, Time and Location Date Performed: 04/27/23 Time Performed: 14:19 Patient Location: PACU Vital Signs Most Recent Imported Vital Signs: Most Recent Vital Signs Temp Pulse Resp BP Pulse Ox 36.6 C 82 15 117/65 97 04/27/23 14:00 04/27/23 14:15 04/27/23 14:15 04/27/23 14:15 04/27/23 14:15 Pain Score Most Recent Pain Score: Most Recent Pain Score Pain Level 8 04/27/23 14:15 Assessment Mental Status: Awake (Alert & Oriented to Patient Baseline) Airway and Respiratory Function: Patent airway with normal (patient baseline) respiratory exam Cardiovascular Function: Hemodynamically Stable Hydration Status: Adequately Hydrated Nausea & Vomiting: No Nausea or Vomiting Pain: Pain is tolerable per patient Peripheral Nerve Block: Regional nerve block not resolved at time of post operative discharge
[2023-04-27] MEDS: oxyCODONE 5 MG TAB PO ×2 (14:40→15:50)
--- NOTE | 2023-04-27 15:13 | IN_ITS ---
PT Notes Visit Reasons: Left knee DJD Physical Therapy Inpatient Initial Evaluation Date: 04/27/2023 Referring Doctor: LESLIE Lopez PT Orders: PT CONSULT: S/P Ortho Surgery Precautions: WBAT on the L LE with AD. Patient Profile/Admitting Diagnosis: [place] is a 62-year-old female with degenerative joint disease of the L knee and status post L total knee arthroplasty on postoperative day 0. 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 Independent with all aspects of ADLs prior to surgery although has had worsening suture with mobility ADL performance due to arthritic process progression. Equipment Owned/DME: FWW, walking stick Subjective: Reported 8-9/10 in the L knee during weight bearing and sit<>stand movement transition. Mildly lightheaded. Objective: General Observation: Resting on the recliner when PT came in. High BMI. Mental Status: A&O x 4 Pain: 8-9/10 at rest and with weight bearing ROM: Left Lower Extremity: Hip flexion WFL. Hip abduction WFL. Knee flexion 45 degrees to 90 degrees actively. Knee extension -45 degrees. Ankle dorsiflexion WFL. Ankle plantarflexion WFL. Right Lower Extremity: Hip flexion WFL. Hip abduction WFL. Knee flexion WFL. Ankle dorsiflexion WFL. Ankle plantarflexion WFL. Strength: Left Lower Extremity: Hip flexors 4/5. Hip abductors 4/5. Knee flexors 3-/5. Knee extensors 3-/5. Ankle dorsiflexors 4/5. Ankle plantarflexors 4/5. Right Lower Extremity:Hip flexors 5/5. Hip abductors 5/5. Knee flexors 5/5. Knee extensors 5/5. Ankle dorsiflexors 5/5. Ankle plantarflexors 5/5. Sensation: Inatct as to pain and light pressure in B LE Bed Mobility/Transfers: Minimal cueing provided for use of B hands as needed for support, movement sequence, AD management, and and posture to reduce fall risk and minimize pain report. Stand to sit standby assist Bed to chair standby assist Gait: Facilitated safe and correct performance of level surface ambulation using front-wheeled walker covering a distance of about 50 feet + 50 feet with standby assist of Pt and Nurse Zimmerman with wheelchair follow. No episodes of buckling throughout. Step to gait pattern. Minimal verbal cueing provided for limb advancement, AD management, and directional turns to minimize pain and reduce fall risk. Stairs: Guided patient with safe and correct negotiation of 3 x 4 inch steps and 2 x 6 inch steps while holding onto rail with 1 hand and using a single-point cane with the other hand with step to gait pattern requiring only standby assist with minimal verbal cueing provided for increased knee flexion on the L during each ascent and for overall safety. Balance: Static Sitting: Normal Dynamic Sitting: Normal Static Standing: Fair Dynamic Standing: Poor Special Tests: Mobility Limitations Standardized Measure [facility] AM-PAC 6 clicks Basic Mobility Inpatient Short Form: Raw Score: 21 CMS Score: 29% deficit Informed Consent/Education: Patient instructed in purpose of PT consult. Packet containing TKA exercise protocol has been given to patient and patient's . Education and training on initial set of exercises that can be done at home have been completed with patient before walking assessment/training. Education on stair negotiation has also been done with . Trained patient with correct performance of exercises below to maximize motor control, joint flexibility, soft tissue extensibility of the L knee musculature. Supine quads sets x 5 with 5 sh Supine heels slides x 5 Supine ankle DF/PF x 10 Small range straight leg raise x 5 Seated marches x 5 ASSESSMENT: Patient requires the use of a front-wheeled walker for all mobility ADL performance to maximize independence and reduce fall risk. Mildly lightheaded only. Able to do better with transfes and ambulation this time despite high p ain level. Nurse Zimmerman already premedicated patient with Oxycodone half an hour ago prior to PT eval. Good L quad activation. Patient presents with clinical signs and symptoms consistent with cu rrent/admitting diagnoses that have resulted to mobility limitations, gait instability, generalized weakness, and impairment of motor control as demonstrated by the following impairment level findings: 1. Decreased strength to L knee major muscle groups 2. Impaired standing balance 3. Limitation of joint range of motion in L knee Impairments are contributing to the following functional limitations: 1. Inability to safely ambulate without assistive device 2. Increase completion time for mobility ADL performance 3. Increased fall risk Patient is assessed as a [id number] moderate complexity based on the following: History: 62-year-old female with impairment level findings, functional limitations, and past medical history as indicated above Examination: Demonstrable impairment in strength, balance, and mobility level with underlying impairments and functional limitations as documented above Presentation: Evolving Decision Makin moderate complexity Goals: N/A. PT evaluation and 1-2 treatment sessions only for functional mobility training using recommended AD and for HEP instruction. Plan of Care/Treatment Plan: N/A. PT evaluation and 1-2 treatment session only for functional mobility training using recommended AD and for HEP instruction. DISCHARGE RECOMMENDATIONS: Home when medically cleared by orthopedic surgeon. Recommend outpatient PT services in order to optimize functional mobility outcomes and facilitate return to independent community ambulation without an assistive device. TREATMENT CODE/TIME: 27311 x 20 minutes for 1 unit, 98153 x 19 minutes for 1 unit (15:13-15:52) Thank you for the opportunity to participate in the care of this patient. Shanna Gonzalez PT, DPT, CLT [facility] [place], [place]
== END 2023-04-27 16:40 | disposition home or self-care (01) ==
PROVIDERS: PCP Family Medicine; Visit Provider Student in an Organized Health Care Education/Training Program
PROC: (CPT 27447; principal; 2023-04-27 10:30)
DX: M17.12 Unilateral primary osteoarthritis, left knee (principal); G47.33 Obstructive sleep apnea (adult) (pediatric)
CPT/HCPCS: 27447; 76942; 97162; 97530; C1776; J0665; J0690; J1100; J2250; J2371; J2405; J2704

== ENCOUNTER 2023-05-10 13:39 | Outpatient (CLI) | payer OTHER, SELFPAY ==
--- NOTE | 2023-05-10 11:48 | DI.RAD_ITS ---
Exam(s) XR KNEE LT 1V XR STANDING ALIGNMENT EXAM: XR STANDING ALIGNMENT and XR knee LT 1 V CLINICAL HISTORY: 1ST POST OP S/P L TKA. TECHNIQUE: 2D digital imaging was performed. Five images were obtained. COMPARISON: CR XR STANDING ALIGNMENT from 03/29/2023 CR XR KNEE RT 1V from 03/29/2023 FINDINGS: BONES: There is moderate joint space narrowing of the hips bilaterally. The patient has bilateral to herman knee replacements. The orthopedic hardware appears in good position. No suspicious lucencies ar e seen in or about the orthopedic hardware. There is mild persistent soft tissue swelling around the left knee. The ankles are well maintained.There is no significant leg length discrepancy. SOFT TISSUE: Normal. IMPRESSION: Stable bilateral total knee replacements. DATA REPOSITORY: RADIATION DOSE DELIVERED:
== END 2023-05-10 13:40 | disposition home or self-care (01) ==
LOC: DIORS 15:31
PROVIDERS: PCP Family Medicine; Visit Provider Student in an Organized Health Care Education/Training Program
DX: Z96.652 Presence of left artificial knee joint (principal); Z96.651 Presence of right artificial knee joint; Z47.1 Aftercare following joint replacement surgery
CPT/HCPCS: 73560; 77073

== ENCOUNTER 2023-10-05 11:34 | Outpatient (REF) | payer OTHER, SELFPAY ==
[2023-10-05 15:25] LABS: Calculated LDL 120 mg/dL (<100); Cholesterol 200 mg/dL (<200); HDL Cholesterol 57 mg/dL (40-60); Triglyceride 117 mg/dL (<150); Vitamin D 25 Total 48.6 ng/mL (30-100)
== END 2023-10-05 11:35 | disposition home or self-care (01) ==
LOC: NCHCN 11:34
PROVIDERS: PCP Family Medicine; Visit Provider Family Medicine
DX: E78.5 Hyperlipidemia, unspecified (principal); Z00.00 Encounter for general adult medical examination without abnormal findings
CPT/HCPCS: 80061; 82306

== ENCOUNTER 2023-12-22 08:46 | Outpatient (CLI) | payer BC, SELFPAY ==
--- NOTE | 2023-12-22 | DI.RAD_ITS ---
Exam(s) XR HIP PELVIS ADULT BL EXAM: XR HIP PELVIS ADULT BL CLINICAL HISTORY: BILAT HIP PAIN,M25.551,M25.552. TECHNIQUE: 2D digital imaging was performed. COMPARISON: No exams were available for comparison FINDINGS: Three views There is no evidence of pelvic nor hip fracture. There is degenerative narrowing of both hip joints, slightly more prominent on the left side. Also left femoral head osteophyte noted. Pubic rami appear intact. SI joints unremarkable. IMPRESSION: No pelvic nor hip fractures evident. 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
== END 2023-12-22 09:06 ==
PROVIDERS: PCP Family Medicine; Visit Provider Family Medicine
DX: M16.0 Bilateral primary osteoarthritis of hip (principal)
CPT/HCPCS: 73521

== ENCOUNTER 2023-12-31 04:59 | Emergency (ER) | payer BC, SELFPAY ==
[2023-12-31] VITALS (54 sets, daily range): BP systolic 126–176; BP diastolic 47–131; PULSE 62–92; RESP 13–26; TEMP 36.3; O2SAT 85–100
--- NOTE | 2023-12-31 05:00 | RT.EKG_ITS ---
APPROVED REPORT Exam: Resting ECG Reason for Exam: weakness Patient Location: E HR:80 bpm ECG Measurements Heart Rate 80 AXIS TX 147 P 49 QRSd 100 QRS 14 QT 390 T 21 QTc 451 Conclusion Sinus rhythm. 80 normal axis no stemi
[2023-12-31 07:15] LABS: Absolute Basophil Count 0.06 10^3/uL (0.0-0.2); Absolute Eosinophil Count 0.08 10^3/uL (0.0-0.7); Absolute Lymphocyte Count 1.23 10^3/uL (1.2-3.4); Absolute Neutrophil Count 8.92 10^3/uL (1.2-6.7); Basophils % 0.5 %; Eosinophils % 0.7 %; HCT 40.4 % (36.0-46.0); HGB 13.1 g/dL (11.2-15.7); Immature Grans % 3.4 %; Lymphocytes % 10.4 %; MCH 28.3 pg (27.0-33.0); MCHC 32.4 % (32.0-36.0); MCV 87 fL (80-95); Monocytes % 9.3 %; Neutrophils % 75.7 %; RBC 4.63 10^6/uL (3.93-5.22); RDW 14.6 % (11.7-14.6); RDW-SD 47.3 fL; WBC 11.78 10^3/uL (4.4-10.8)
--- NOTE | 2023-12-31 07:16 | ED.GENADUL_ITS ---
Discharge Plan Disposition Patient Disposition: Transfer-Acute Inpatient Care Specific Acute Inpt Facility: [facility] Condition: Critical Discharge Details Clinical Impression: Subdural abscess, Headache, Acute otitis media, left, Right arm weakness, Expressive aphasia Primary Care Provider: [facility] ED Provider: Raiza Ferrer Home Meds and New Rx's Prescriptions: No Action multivitamin [Daily Multi-Vitamin] 1 EACH tablet 1 ea PO DAILY Gummi fiber chew 2 tab.chew PO BID hydroxyzine HCl 25 mg tablet 25 mg PO QHS PRN atorvastatin 20 mg tablet 20 mg PO QHS celecoxib 200 mg capsule See Rx Instructions .ROUTE .COMPLEX Qty: 60 0RF Dose Instruction: TAKE ONE CAPSULE BY MOUTH TWICE A DAY NEEDED FOR PAIN AND INFLAMMATION Rx Instructions: TAKE ONE CAPSULE BY MOUTH TWICE A DAY NEEDED FOR PAIN AND INFLAMMATION omeprazole 20 MG capsule,delayed release(DR/EC) 20 mg PO DAILY@0730 melatonin 5 mg tablet 5 mg PO HS PRN amitriptyline 100 mg tablet 100 mg PO DAILY Patient Comments: TAKE ONE TABLET BY MOUTH AT BEDTIME amlodipine 5 mg tablet 5 mg PO DAILY Patient Comments: TAKE ONE TABLET BY MOUTH EVERY DAY amoxicillin-pot clavulanate 875-125 mg tablet 1 tab BID Patient Comments: TAKE ONE TABLET BY MOUTH TWICE A DAY FOR 10 DAYS acetaminophen 500 mg tablet 1,000 mg PO Q8H PRN Qty: 90 0RF Rx Instructions: Take two tablets up to every 8 hours as needed for pain HPI General Date/Time Provider Initiated Documentation: 12/31/23 05:11 . Limitations to Documentation: altered mental status . Information obtained by: patient and family ( ) . HPI Narrative: 63-year-old female without significant past medical history presents for evaluation of altered mental status and left ear pain. She reports that she started having ear pain on Wednesday (5 days ago) and was seen at an outside medical clinic. She was prescribed Augmentin and has been taking that. She reports that the pain has not improved. She states that she has pressure on the left side of her head and behind her left eye. She states that she is having difficulty getting words out. She says that she can think them in her brain, but they are not coming out correctly. She is concerned for a little bit of right upper extremity weakness as well. says that she has been weird all week. He says that she did urinate on the floor earlier this week which is very atypical for her but otherwise cannot express any more specifics that he h as noted Related Data Home Medications ?Medication ?Instructions ?Recorded ?Confirmed Gummi Fiber Chew 2 tab.chew PO BID 09/03/14 12/31/23 multivitamin (Daily Multi-Vitamin 1 ea PO DAILY 09/03/14 12/31/23 tablet) omeprazole 20 mg capsule,delayed 20 mg PO DAILY@0730 10/28/15 12/31/23 release atorvastatin 20 mg tablet 20 mg PO QHS 01/27/23 12/31/23 hydroxyzine HCl 25 mg tablet 25 mg PO QHS PRN 01/27/23 12/31/23 melatonin 5 mg tablet 5 mg PO HS PRN 03/15/23 12/31/23 amitriptyline 100 mg tablet 100 mg PO DAILY 03/16/23 12/31/23 amlodipine 5 mg tablet 5 mg PO DAILY 03/16/23 12/31/23 acetaminophen 500 mg tablet 1,000 mg (2 x 500 mg) PO Q8H PRN 04/27/23 12/31/23 pain #90 tabs celecoxib 200 mg capsule See Rx Instructions .Route 06/25/23 12/31/23 .COMPLEX #60 caps amoxicillin 875 mg-potassium 1 tab BID 12/31/23 clavulanate 125 mg tablet Previous Rx's ?Medication ?Instructions ?Recorded acetaminophen 500 mg tablet 1,000 mg (2 x 500 mg) PO Q8H PRN 04/27/23 pain #90 tabs celecoxib 200 mg capsule See Rx Instructions .Route 06/25/23 .COMPLEX #60 caps Allergies Allergy/AdvReac Type Severity Reaction Status Date / Time No Known Allergies Allergy Verified 12/31/23 11:28 General Stated Complaint: AMS/LOC AMBER: 3 Exam Narrative Exam Narrative: Review of Systems: All systems reviewed & are unremarkable except as noted in HPI and below Well-developed, no acute distress NCAT right TM and canal unremarkable Left canal with debris and tenderness with speculum, TM bulging questionable perforation no mastoid tenderness neck with full ROM, no tenderness or restriction, no meningeal signs PERRL, normal conjunctiva , appears to have photophobia with left eye RRR no murmur Unlabored respiratory effort , CTAB Nondistended abdomen , soft non tender No rashes or lesions. no focal neurologic deficits, cognition slowed, but accurate, significant difficulty with following multi step commands, no pronator drift, very mild LUE weakness 4/5, very slow to do finger-nose with the left arm Course Vital Signs Vital signs: Vital Signs Temperature 36.3 C L 12/31/23 05:07 Pulse 91 H 12/31/23 05:07 Respiratory Rate 18 12/31/23 05:07 Blood Pressure 176/83 H 12/31/23 05:07 Pulse Oximetry 99 12/31/23 05:07 Temperature 36.3 C L 12/31/23 05:07 Temperature Source Temporal Artery Scan 12/31/23 05:07 Pulse 77 12/31/23 07:01 Pulse 76 12/31/23 07:10 Respiratory Rate 15 12/31/23 07:10 Respiratory Effort Normal 12/31/23 05:53 Respiratory Depth Normal 12/31/23 05:53 Respiratory Pattern Normal 12/31/23 05:53 Blood Pressure 139/76 12/31/23 07:01 Blood Pressure Mean 94 12/31/23 07:01 Blood Pressure Position Sitting 12/31/23 05:07 Pulse Oximetry 97 12/31/23 07:10 Oxygen Delivery Method Room Air 12/31/23 05:07 Oxygen Flow Rate 0 12/31/23 05:07 Medical Decision Making Emergent evaluation of altered mental status. History is significantly limited as neither the patient nor the are able to provide very specific details regarding the events of this week. I do not have access to medical documentation regarding her visit on Wednesday or Augmentin prescription. I have reviewed her medical record and did note a history of migraines. Symptoms could be secondary to otitis media, less likely to be mastoiditis given the lack of mastoid tenderness. She has no meningeal signs or fever. Could be atypical or complex migraine. Will evaluate for other infectious etiology. Will get CT imaging of the brain as well. EKG reviewed and independently interpreted: Sinus 80 normal axis no STEMI [address] head findings with radiologist. concern for subdural fluid collection. There has been no trauma and the patient is not on any blood thinners anticoagulant or aspirin. My suspicion is that this may be infection given her elevated WBC, procal and signs of ear infection and sinusitis . It definitely explains her symptoms and deficits. I have consulted [facility] neurosurgery for transfer. I will give high-dose Rocephin to initiate treatment. I updated the patient on the findings and she remains very confused with severe headache. 1020 Discussed case with neurosurgery PA. They will discuss with their attending and call back. 1040 Called to room as patient was not answering questions or following commands. went into room and she was not able to speak. It seemed that she was distressed by this. daughter at bedside reports it just started. Sent for stat head CT. 1047 patient aphasic. holding head and grimacing Spoke with neurosurgery who requests an EEG, vascular neurology involvement and a CTA. I advised that we are unable to get an EEG. Am happy to talk with vascular neurology however this is more consistent with a neurosurgical issue but I will get the CTA. 1110 I have discussed and reviewed the additional images with radiologist and the repeat images are very concerning for gas in the subdural space which would be consistent with infectious etiology as suspected. The patient has not regained speech. I have recontacted [facility] neurosurgery to escalate transfer. 1145 Patient accepted for transfer ED to ED, accepting Dr. Hdez. Transport has been arranged and patient's family have been updated. Quality:SDOH Health Related Social Needs: No Data to Display Critical Care Time Critical Care Time Critical Care Time: Yes Total Critical Care Time: 37 Attestation: CRITICAL CARE Upon my evaluation, this patient had a high probability of imminent or life- threatening deterioration due to encephalopathy, aphasia, subdural abscess which required my direct attention, intervention, and personal management. I have personally provided 37 minutes of critical care time exclusive of time spent on separately billable procedures. Time includes review of laboratory data, radiology results, discussion with consultants, and monitoring for potential decompensation. Interventions were performed as documented above [facility] All Active Problems (Updated 12/31/23 @ 11:57 by Raiza Ferrer MD) Expressive aphasia (Acute) Right arm weakness (Acute) Acute otitis media, left (Acute) Headache (Acute) Subdural abscess (Acute) History of total left knee replacement (Acute 04/27/23) History of right knee joint replacement (Acute 03/16/23) DOROTHEA (obstructive sleep apnea) (Chronic) uses CPAP Medical History Breast cancer Migraine (06/25/14) Surgical History Status post right breast lumpectomy Jaw fracture as a child required surgery S/P left knee arthroscopy section X 3 Abdominal hysterectomy EGD - IV Sedation (10/28/15) Family History Mother Parkinsons disease Father Alzheimers disease Social History Smoking/Tobacco Use Status: Former Tobacco Use Quit Date: 03/08/92 Smoking risk assessment performed?: Yes Alcohol Intake: never Drug use: Never Substance use type: does not use Housing: house Do you feel safe at home: Yes (unable to assess privately) Do you feel safe in your relationship?: Yes
[2023-12-31 07:26] LABS: Prothrombin Time 10.2 sec (9.1-11.1)
[2023-12-31 07:32] LABS: Diff Comment Diff Reviewed; RBC Morphology Normal
[2023-12-31 07:42] LABS: ALT 185 U/L (14-59); AST 112 U/L (15-37); Albumin 2.6 g/dL (3.4-5.0); Alkaline Phosphatase 161 U/L (46-116); Anion Gap 9.4 mmol/L (3-11); BUN 14 mg/dL (7-18); Bilirubin, Total 0.89 mg/dL (0.2-1.0); CO2 27.6 mmol/L (21.0-32.0); CREATININE 0.9 mg/dL (0.55-1.02); Calcium 9.5 mg/dL (8.5-10.1); Chloride 97 mmol/L (98-107); Estimated GFR 72.73 (mL/min/1.73m2); Glucose 131 mg/dL (74-106); Magnesium 2.5 mg/dL (1.8-2.4); Potassium 3.8 mmol/L (3.5-5.1); Sodium 134 mmol/L (136-145); TSH (W/Ref FT4) 9.13 uIU/mL (0.36-3.74); Total Protein 7.8 g/dL (6.4-8.2)
[2023-12-31 07:43] LABS: ETHANOL BLOOD < 3.0 mg/dL (<10)
[2023-12-31 07:52] LABS: Procalcitonin 0.6 ng/mL
[2023-12-31] MEDS: Omnipaque 350 MG/ML 100 ML BTL IJ ×2 (07:55→10:55)
[2023-12-31] MEDS: Normal Saline - Diluent 50 ML VIAL IJ ×2 (07:55→10:55)
[2023-12-31 07:59] LABS: FREE T4 1.13 ng/dL (0.76-1.46)
[2023-12-31 08:06] LABS: Acetaminophen 4 ug/mL (10-30)
--- NOTE | 2023-12-31 08:55 | DI.CT_ITS ---
Exam(s) CT HEAD WO/W EXAM: CT HEAD WO/W CLINICAL HISTORY: AMS, ear infection. TECHNIQUE: Imaging Protocol: Both noninfused and contrast infused CT scans of the brain were perform ed. IV Contrast Dose =75 cc Axial computed tomography images with coronal and sagittal reformatted images were created and review ed COMPARISON: No exams were available for comparison FINDINGS: There are no skull fractures. There are fluid levels in both maxillary sinuses as well as within th e frontal sinuses ethmoidal air cells as well as some mucosal thickening noted in the sphenoid sinuse s. There is some fluid in the left middle ear, aditus ad antrum, and left mastoid air cells. Simila r findings are not seen on the right side. There is a unilateral nonacute appearing subdural hematoma over the left convexity which exhibits max imum thickness of 6 mm. Does not contain hyperdense blood. There is no intra-axial hemorrhage nor s ubarachnoid blood in this region. There is minimal mass effect upon the adjacent sulci. No shift of midline structures. Ventricles are not enlarged nor shifted. There are no ring enhancing lesions i n the brain. No aneurysms evident. No vascular malformation evident. IMPRESSION: Left-sided subdural hematoma with thickness 6 mm. Does not appear acute. No skull fractures evident . There is acute sinusitis as described above and there is also fluid in the left middle ear cavity and left mastoid air cells. Report called by myself to ER physician 12/31/2023 at 9 a.m. RADIATION DOSE DELIVERED: 1,741.03mGy.cm Total DLP DATA REPOSITORY: All CT scans at this facility are submitted to the National Radiology Data Registry (NRDR) Dose Index Registry (DIR) with the [employer] ([employer]). RADIATION OPTIMIZATION: All CT scans at this facility use at least one of these dose optimization te chniques: automated exposure control; mA and/or kV adjustment per patient size (includes targeted exa ms where dose is matched to clinical indication); or iterative reconstruction.
[2023-12-31] MEDS: Acetaminophen 500 MG TAB (09:02)
[2023-12-31] MEDS: cefTRIAXone 2 GM/50 ML BAG IVPB (09:24)
[2023-12-31] MEDS: Normal Saline Flush 10 ML SYR IVP (09:25)
--- NOTE | 2023-12-31 10:26 | DI.CT_ITS ---
Exam(s) CT HEAD WO EXAM: CT HEAD WO CLINICAL HISTORY: ams. TECHNIQUE: Imaging Protocol: Axial computed tomography images with coronal and sagittal reformatted images were created and reviewed COMPARISON: CT CT HEAD WO/W from 12/31/2023 FINDINGS: This is the 2nd scan performed on this ED patient today who originally had a without and with contras t CT brain study. There are no skull fractures. Again noted are fluid levels in the bilateral maxillary sinuses as well as fluid in ethmoidal air cells and in the frontal sinuses. Also some mucosal disease in the spheno id sinuses and there is again noted fluid in left mastoid air cells, left aditus ad antrum, and left middle ear cavity. The left subdural collection is again noted, similar in size. The most superior aspect of this colle ction contains 2 air/gas bubbles. Concerning for infectious etiology of this collection. The amount of mass effect on the adjacent sulci is unchanged. There is no obvious shift of midline structures. No new hyperdense blood seen within the collection. No skull fracture. IMPRESSION: Left convexity extra-axial collection which appears to contain 2 small gas bubbles in its most superi or aspect. Therefore, given the absence of head trauma and the significant acute sinusitis an ipsila teral left mastoiditis and left middle ear findings, there is a significant possibility that this is an infectious extra-axial subdural left convexity collection. Neurosurgery consultation recommended. Discussed with ER physician following completion of this study 12/31/2023 RADIATION DOSE DELIVERED: 906.3mGy.cm Total DLP DATA REPOSITORY: All CT scans at this facility are submitted to the National Radiology Data Registry (NRDR) Dose Index Registry (DIR) with the [employer] ([employer]). RADIATION OPTIMIZATION: All CT scans at this facility use at least one of these dose optimization te chniques: automated exposure control; mA and/or kV adjustment per patient size (includes targeted exa ms where dose is matched to clinical indication); or iterative reconstruction.
--- NOTE | 2023-12-31 10:35 | NUR.NOTE ---
Nursing Note: pt suddenly was unable to answer questions of the family member, MD was made aware and pt was sent for a head CT.
[2023-12-31] MEDS: fentaNYL 100 MCG/2 ML VIAL 50 MCG IVP (10:49)
--- NOTE | 2023-12-31 11:15 | DI.CT_ITS ---
Exam(s) CT BRAIN NECK CTA EXAM: CT BRAIN NECK CTA CLINICAL HISTORY: ams. TECHNIQUE: Imaging Protocol: Axial CT angiography was performed with multi-slice acquisition and mu lti-planar and/or 3D reconstructions. CONTRAST MATERIAL: Intravenous: Omnipaque 350 Contrast volume:structured data in ml COMPARISON: No exams were available for comparison FINDINGS: CTA Neck W: Aortic arch anatomy: The aortic arch anatomy is conventional and there is no significant stenosis at the origin of the great vessels off of the aortic arch. No intimal flap evident in the aortic arch. Anterior circulation: There is significant tortuosity in the proximal half of the right common carotid artery in the neck. There is no significant stenosis at the carotid bifurcation. There is some mild partially calcified plaque on the posterior wall the proximal right ICA. Estimated stenosis at this level is less than 10 percent. The right ICA in the upper neck is patent without stenosis. On the left side there is also tortuosity (but less so) in the proximal left ICA. At the left caroti d bifurcation there is partially calcified plaque on the posterior wall, slightly more than the oppos ite side but with approximately 10-15 percent stenosis. The left ICA in the upper neck is patent wit hout significant stenosis. Both internal carotid arteries are patent in the skull base-carotid canal s. Posterior circulation: Both vertebral arteries originate in conventional fashion off of the subclavian arteries and there is no obvious stenosis at the origin of the vertebral arteries. Both vertebral arteries exhibit normal luminal diameters within the foramen transversarium. Both vertebral arteries contribute to the formation of the basilar artery at the skull base. CTA Brain W: Anterior circulation: Both internal carotid arteries are patent in the skull base-carotid canals as well as within the cave rnous sinuses. The supraclinoid aspects of the ICAs are patent. Both A1 segments are patent as are the anterior cer ebral arteries and there is no evidence of aneurysm at the level of the anterior communicating artery . Both middle cerebral arteries are patent with no evidence of significant stenosis nor intraluminal th rombus. There also no aneurysms of these vessels. Posterior circulation: The basilar artery ascends in the midline. Distally it gives off patent bilateral superior cerebella r arteries. Above this level the basilar artery terminates as patent bilateral posterior cerebral arteries. Righ t P1 segment is narrow. However, there is an ipsilateral posterior communicating artery evident feed ing the right posterior cerebral artery. There is no evidence of aneurysm at the tip of the basilar artery nor elsewhere in the [id number] is. CT BRAIN: Left convexity extra-axial subdural collection is again noted, as seen on CT scan earlier today. Mil d mass effect evident on adjacent sulci. There are 2 small air-gas bubble seen over the top left con vexity. IMPRESSION: 1. Somewhat tortuous carotid arteries in the neck below the carotid bifurcations. Less than 20 perce nt stenosis bilaterally at the proximal ICAs. 2. Patent vertebral arteries. 3. Patent intracranial arteries. 4. Left convexity subdural collection without acute blood but with 2 small gas bubbles evident in the most superior aspect. Therefore, given the sinusitis findings and left mastoiditis and left middle ear fluid findings the possibly that this left extra-axial subdural collection is infectious etiology is a significant consideration, particularly since there has been no head trauma. There is also no hyperdense blood within this finding. Findings discussed by phone with ER physician 12/31/2023 at 11:32 a.m. RADIATION DOSE DELIVERED: 1,463.75mGy.cm Total DLP DATA REPOSITORY: All CT scans at this facility are submitted to the National Radiology Data Registry (NRDR) Dose Index Registry (DIR) with the [employer] ([employer]). RADIATION OPTIMIZATION: All CT scans at this facility use at least one of these dose optimization te chniques: automated exposure control; mA and/or kV adjustment per patient size (includes targeted exa ms where dose is matched to clinical indication); or iterative reconstruction.
[2023-12-31] MEDS: Metoprolol 5 MG/5 ML VIAL IVP (11:21)
[2023-12-31 18:41] LABS: Hepatitis A Antibody IgM Negative (Negative); Hepatitis B Core Antibody Negative (Negative); Hepatitis B surface Ag Negative (Negative); Hepatitis C Ab w Rflx HCV PCR Negative (Negative)
== END 2023-12-31 12:39 | disposition short-term general hospital (02) ==
PROVIDERS: Emergency Provider Emergency Medicine; PCP Family Medicine
DX: G06.2 Extradural and subdural abscess, unspecified (principal); R51.9 Headache, unspecified; H66.92 Otitis media, unspecified, left ear; R53.1 Weakness; R47.01 Aphasia; Z87.891 Personal history of nicotine dependence
CPT/HCPCS: 36415; 70496; 70498; 80053; 82962; 84145; 86704; 86709; 86803; 87040; 87340; 93005; 96365; 96375; 99285; 70450; 70470; 80320; 80329; 83735; 84439; 84443; 85025; 85610; 93010; J0696; J3010; J3490

== ENCOUNTER 2024-01-17 18:25 | Outpatient (REF) | payer BC, SELFPAY ==
[2024-01-17 15:19] LABS: Abs Immature Grans 0.02 10^3/uL (0.0-0.06); Absolute Basophil Count 0.07 10^3/uL (0.0-0.2); Absolute Eosinophil Count 0.13 10^3/uL (0.0-0.7); Absolute Lymphocyte Count 1.06 10^3/uL (1.2-3.4); Absolute Neutrophil Count 3.59 10^3/uL (1.2-6.7); Basophils % 1.3 %; Eosinophils % 2.5 %; HCT 40.8 % (36.0-46.0); HGB 12.9 g/dL (11.2-15.7); Immature Grans % 0.4 %; Lymphocytes % 20.1 %; MCH 28.6 pg (27.0-33.0); MCHC 31.6 % (32.0-36.0); MCV 91 fL (80-95); MPV 11.8 fL (8.0-11.0); Monocytes % 7.6 %; Neutrophils % 68.1 %; Platelet Count 145 10^3/uL (130-400); RBC 4.51 10^6/uL (3.93-5.22); RDW 15.6 % (11.7-14.6); RDW-SD 51.3 fL; WBC 5.27 10^3/uL (4.4-10.8)
[2024-01-17 16:49] LABS: ALT 38 U/L (14-59); AST 25 U/L (15-37); Albumin 3.4 g/dL (3.4-5.0); Alkaline Phosphatase 110 U/L (46-116); Anion Gap 9.3 mmol/L (3-11); BUN 14 mg/dL (7-18); Bilirubin, Total 0.29 mg/dL (0.2-1.0); CO2 27.7 mmol/L (21.0-32.0); CREATININE 0.9 mg/dL (0.55-1.02); Calcium 9.3 mg/dL (8.5-10.1); Chloride 105 mmol/L (98-107); Estimated GFR 72.73 (mL/min/1.73m2); Glucose 118 mg/dL (74-106); Potassium 4.5 mmol/L (3.5-5.1); Sodium 142 mmol/L (136-145); Total Protein 6.7 g/dL (6.4-8.2)
[2024-01-17 16:56] LABS: C-Reactive Protein < 0.50 mg/dL (<or=0.5)
== END 2024-01-17 18:26 | disposition home or self-care (01) ==
LOC: NCHCN 18:25
PROVIDERS: PCP Family Medicine; Visit Provider Family Medicine
DX: G00.2 Streptococcal meningitis (principal)
CPT/HCPCS: 80053; 85025; 86140

== ENCOUNTER 2024-01-26 12:26 | Outpatient (RCR) | payer BC, SELFPAY ==
[2024-01-26] MEDS: Alteplase 2 MG VIAL IJ (13:30)
[2024-01-26] MEDS: Water,Injection,Sterile 10 ML VIAL (13:50)
[2024-01-26 15:51] LABS: Abs Immature Grans 0.02 10^3/uL (0.0-0.06); Absolute Basophil Count 0.06 10^3/uL (0.0-0.2); Absolute Eosinophil Count 0.26 10^3/uL (0.0-0.7); Absolute Lymphocyte Count 1.63 10^3/uL (1.2-3.4); Absolute Monocyte Count 0.62 10^3/uL (0.1-0.8); Absolute Neutrophil Count 3.87 10^3/uL (1.2-6.7); Basophils % 0.9 %; HCT 39.1 % (36.0-46.0); HGB 12.6 g/dL (11.2-15.7); Immature Grans % 0.3 %; Lymphocytes % 25.2 %; MCH 29.2 pg (27.0-33.0); MCHC 32.2 % (32.0-36.0); MCV 91 fL (80-95); MPV 10.2 fL (8.0-11.0); Monocytes % 9.6 %; Platelet Count 223 10^3/uL (130-400); RBC 4.31 10^6/uL (3.93-5.22); RDW 15.3 % (11.7-14.6); RDW-SD 50.9 fL; WBC 6.46 10^3/uL (4.4-10.8)
[2024-01-26 16:10] LABS: ALT 26 U/L (14-59); AST 21 U/L (15-37); Albumin 3.3 g/dL (3.4-5.0); Alkaline Phosphatase 101 U/L (46-116); Anion Gap 6.2 mmol/L (3-11); BUN 15 mg/dL (7-18); CO2 28.8 mmol/L (21.0-32.0); CREATININE 0.8 mg/dL (0.55-1.02); Calcium 8.6 mg/dL (8.5-10.1); Chloride 107 mmol/L (98-107); Estimated GFR 83.78 (mL/min/1.73m2); Glucose 103 mg/dL (74-106); Potassium 4.2 mmol/L (3.5-5.1); Sodium 142 mmol/L (136-145); Total Protein 6.5 g/dL (6.4-8.2)
[2024-01-26 16:12] LABS: C-Reactive Protein < 0.50 mg/dL (<or=0.5)
== END 2024-02-05 23:59 | disposition home or self-care (01) ==
LOC: INF 12:26
PROVIDERS: PCP Family Medicine; Visit Provider Internal Medicine Infectious Disease
DX: G06.2 Extradural and subdural abscess, unspecified (principal)
CPT/HCPCS: 36592; 80053; 85025; 86140; J2997

== ENCOUNTER 2024-01-31 16:18 | Outpatient (REF) | payer BC, SELFPAY ==
[2024-01-31 15:38] LABS: Abs Immature Grans 0.04 10^3/uL (0.0-0.06); Absolute Basophil Count 0.07 10^3/uL (0.0-0.2); Absolute Eosinophil Count 0.18 10^3/uL (0.0-0.7); Absolute Monocyte Count 0.59 10^3/uL (0.1-0.8); Absolute Neutrophil Count 3.89 10^3/uL (1.2-6.7); Basophils % 1.1 %; Eosinophils % 2.8 %; HCT 43.4 % (36.0-46.0); HGB 13.7 g/dL (11.2-15.7); Immature Grans % 0.6 %; Lymphocytes % 25.1 %; MCH 28.8 pg (27.0-33.0); MCHC 31.6 % (32.0-36.0); MCV 91 fL (80-95); MPV 11.9 fL (8.0-11.0); Monocytes % 9.3 %; Neutrophils % 61.1 %; Platelet Count 227 10^3/uL (130-400); RBC 4.76 10^6/uL (3.93-5.22); RDW 15.1 % (11.7-14.6); RDW-SD 51.1 fL; WBC 6.37 10^3/uL (4.4-10.8)
[2024-01-31 18:15] LABS: ALT 29 U/L (14-59); AST 20 U/L (15-37); Albumin 3.7 g/dL (3.4-5.0); Alkaline Phosphatase 111 U/L (46-116); Anion Gap 8.2 mmol/L (3-11); BUN 14 mg/dL (7-18); Bilirubin, Total 0.18 mg/dL (0.2-1.0); CO2 27.8 mmol/L (21.0-32.0); CREATININE 0.9 mg/dL (0.55-1.02); Calcium 9.1 mg/dL (8.5-10.1); Chloride 106 mmol/L (98-107); Estimated GFR 72.73 (mL/min/1.73m2); Glucose 98 mg/dL (74-106); Potassium 4.7 mmol/L (3.5-5.1); Sodium 142 mmol/L (136-145); Total Protein 6.8 g/dL (6.4-8.2)
[2024-01-31 18:16] LABS: C-Reactive Protein < 0.50 mg/dL (<or=0.5)
== END 2024-01-31 16:19 | disposition home or self-care (01) ==
LOC: LBN 16:18
PROVIDERS: PCP Family Medicine; Visit Provider Internal Medicine Infectious Disease
DX: G06.2 Extradural and subdural abscess, unspecified (principal)
CPT/HCPCS: 80053; 85025; 86140

== ENCOUNTER 2024-02-07 16:53 | Outpatient (REF) | payer BC, SELFPAY ==
[2024-02-07 16:00] LABS: Abs Immature Grans 0.02 10^3/uL (0.0-0.06); Absolute Basophil Count 0.04 10^3/uL (0.0-0.2); Absolute Eosinophil Count 0.11 10^3/uL (0.0-0.7); Absolute Monocyte Count 0.55 10^3/uL (0.1-0.8); Absolute Neutrophil Count 3.93 10^3/uL (1.2-6.7); Basophils % 0.7 %; Eosinophils % 1.8 %; HCT 42.1 % (36.0-46.0); HGB 13.4 g/dL (11.2-15.7); Immature Grans % 0.3 %; Lymphocytes % 21.8 %; MCH 28.8 pg (27.0-33.0); MCHC 31.8 % (32.0-36.0); MCV 91 fL (80-95); MPV 11.7 fL (8.0-11.0); Monocytes % 9.2 %; Neutrophils % 66.2 %; Platelet Count 247 10^3/uL (130-400); RBC 4.65 10^6/uL (3.93-5.22); RDW 15.2 % (11.7-14.6); WBC 5.95 10^3/uL (4.4-10.8)
[2024-02-07 16:14] LABS: ALT 41 U/L (14-59); AST 36 U/L (15-37); Albumin 3.7 g/dL (3.4-5.0); Alkaline Phosphatase 105 U/L (46-116); Anion Gap 8.2 mmol/L (3-11); BUN 10 mg/dL (7-18); Bilirubin, Total 0.17 mg/dL (0.2-1.0); CO2 28.8 mmol/L (21.0-32.0); CREATININE 0.8 mg/dL (0.55-1.02); Calcium 8.9 mg/dL (8.5-10.1); Chloride 105 mmol/L (98-107); Estimated GFR 83.78 (mL/min/1.73m2); Glucose 98 mg/dL (74-106); Potassium 4.4 mmol/L (3.5-5.1); Sodium 142 mmol/L (136-145); Total Protein 6.6 g/dL (6.4-8.2)
[2024-02-07 16:31] LABS: C-Reactive Protein < 0.50 mg/dL (<or=0.5)
== END 2024-02-07 16:54 | disposition home or self-care (01) ==
LOC: LBN 16:53
PROVIDERS: PCP Family Medicine; Visit Provider Internal Medicine Infectious Disease
DX: G06.2 Extradural and subdural abscess, unspecified (principal)
CPT/HCPCS: 80053; 85025; 86140

== ENCOUNTER 2024-02-14 16:17 | Outpatient (REF) | payer BC, SELFPAY ==
[2024-02-14 15:42] LABS: Abs Immature Grans 0.03 10^3/uL (0.0-0.06); Absolute Basophil Count 0.05 10^3/uL (0.0-0.2); Absolute Eosinophil Count 0.16 10^3/uL (0.0-0.7); Absolute Lymphocyte Count 1.41 10^3/uL (1.2-3.4); Absolute Monocyte Count 0.63 10^3/uL (0.1-0.8); Basophils % 0.8 %; Eosinophils % 2.5 %; HCT 41.4 % (36.0-46.0); HGB 13.4 g/dL (11.2-15.7); Immature Grans % 0.5 %; Lymphocytes % 22.1 %; MCH 28.9 pg (27.0-33.0); MCHC 32.4 % (32.0-36.0); MCV 89 fL (80-95); MPV 11.7 fL (8.0-11.0); Monocytes % 9.9 %; Neutrophils % 64.2 %; Platelet Count 241 10^3/uL (130-400); RBC 4.64 10^6/uL (3.93-5.22); RDW 15.1 % (11.7-14.6); RDW-SD 50.2 fL; WBC 6.38 10^3/uL (4.4-10.8)
[2024-02-14 15:56] LABS: ALT 43 U/L (14-59); AST 36 U/L (15-37); Albumin 3.7 g/dL (3.4-5.0); Alkaline Phosphatase 106 U/L (46-116); BUN 9 mg/dL (7-18); Bilirubin, Total 0.23 mg/dL (0.2-1.0); C-Reactive Protein < 0.50 mg/dL (<or=0.5); CREATININE 0.8 mg/dL (0.55-1.02); Calcium 8.8 mg/dL (8.5-10.1); Chloride 104 mmol/L (98-107); Estimated GFR 83.78 (mL/min/1.73m2); Glucose 102 mg/dL (74-106); Potassium 4.5 mmol/L (3.5-5.1); Sodium 140 mmol/L (136-145); Total Protein 6.5 g/dL (6.4-8.2)
== END 2024-02-14 16:18 | disposition home or self-care (01) ==
LOC: LBN 16:17
PROVIDERS: PCP Family Medicine; Visit Provider Nurse Practitioner Family
DX: G00.2 Streptococcal meningitis (principal)
CPT/HCPCS: 80053; 85025; 86140

== ENCOUNTER 2024-02-21 21:53 | Outpatient (REF) | payer BC, SELFPAY ==
[2024-02-21 22:45] LABS: Abs Immature Grans 0.02 10^3/uL (0.0-0.06); Absolute Basophil Count 0.04 10^3/uL (0.0-0.2); Absolute Eosinophil Count 0.16 10^3/uL (0.0-0.7); Absolute Lymphocyte Count 1.22 10^3/uL (1.2-3.4); Absolute Monocyte Count 0.47 10^3/uL (0.1-0.8); Absolute Neutrophil Count 4.45 10^3/uL (1.2-6.7); Basophils % 0.6 %; Eosinophils % 2.5 %; HCT 40.8 % (36.0-46.0); HGB 13.4 g/dL (11.2-15.7); Immature Grans % 0.3 %; Lymphocytes % 19.2 %; MCH 29.3 pg (27.0-33.0); MCHC 32.8 % (32.0-36.0); MCV 89 fL (80-95); MPV 12.1 fL (8.0-11.0); Monocytes % 7.4 %; Platelet Count 192 10^3/uL (130-400); RBC 4.57 10^6/uL (3.93-5.22); RDW 14.8 % (11.7-14.6); RDW-SD 48.8 fL; WBC 6.36 10^3/uL (4.4-10.8)
[2024-02-21 23:02] LABS: ALT 40 U/L (14-59); AST 32 U/L (15-37); Albumin 3.7 g/dL (3.4-5.0); Alkaline Phosphatase 106 U/L (46-116); Anion Gap 9.4 mmol/L (3-11); BUN 14 mg/dL (7-18); Bilirubin, Total 0.16 mg/dL (0.2-1.0); C-Reactive Protein < 0.50 mg/dL (<or=0.5); CO2 27.6 mmol/L (21.0-32.0); CREATININE 0.8 mg/dL (0.55-1.02); Calcium 8.8 mg/dL (8.5-10.1); Chloride 106 mmol/L (98-107); Estimated GFR 83.78 (mL/min/1.73m2); Glucose 140 mg/dL (74-106); Potassium 4.3 mmol/L (3.5-5.1); Sodium 143 mmol/L (136-145); Total Protein 6.5 g/dL (6.4-8.2)
== END 2024-02-21 21:54 | disposition home or self-care (01) ==
LOC: LBN 21:53
PROVIDERS: PCP Family Medicine; Visit Provider Internal Medicine Infectious Disease
DX: G06.2 Extradural and subdural abscess, unspecified (principal)
CPT/HCPCS: 80053; 85025; 86140

== ENCOUNTER 2024-03-24 14:04 | Outpatient (REF) | payer BC, SELFPAY | END 2024-03-24 14:05 | disposition home or self-care (01) | LOC: NCHCN 14:04 | PROVIDERS: PCP Family Medicine; Visit Provider Nurse Practitioner Family | DX: R35.0 Frequency of micturition (principal) | CPT/HCPCS: 87480; 87510; 87660 ==

== ENCOUNTER 2024-04-03 15:51 | Outpatient (CLI) | payer BC, SELFPAY ==
--- NOTE | 2024-04-03 11:00 | DI.RAD_ITS ---
Exam(s) XR KNEE LT 2V AP,LAT EXAM: XR KNEE LT 2V AP,LAT CLINICAL HISTORY: ANNUAL F/U L TKA. TECHNIQUE: 2D digital imaging was performed. Two images were obtained. AP and lateral views were ob tained. COMPARISON: CR XR KNEE LT 1V from 05/10/2023 CR XR STANDING ALIGNMENT from 05/10/2023 FINDINGS: BONES: There are stable post operative changes of a left total knee arthroplasty present. No fractur e or dislocation. JOINTS: The orthopedic hardware is in good position. No evidence of hardware loosening. SOFT TISSUE: Normal. IMPRESSION: Stable left total knee arthroplasty. DATA REPOSITORY: RADIATION DOSE DELIVERED:
--- NOTE | 2024-04-03 11:00 | DI.RAD_ITS ---
Exam(s) XR KNEE RT 2V AP,LAT EXAM: XR KNEE RT 2V AP,LAT CLINICAL HISTORY: ANNUAL F/U R TKA. TECHNIQUE: 2D digital imaging was performed. Two images were obtained. AP and lateral views were ob tained. COMPARISON: CR XR KNEE RT 3V AP,LAT,DOMI from 01/25/2023 CR XR KNEE RT 1V from 03/11/2023 CR XR KNEE RT 1V from 03/29/2023 CR XR STANDING ALIGNMENT from 03/29/2023 CR XR STANDING ALIGNMENT from 05/10/2023 FINDINGS: BONES: There are stable post operative changes of a right total knee arthroplasty present. No fractu re or dislocation. JOINTS: The orthopedic hardware is in good position. No evidence of hardware loosening. There is a small joint effusion. SOFT TISSUE: Normal. IMPRESSION: Stable right total knee arthroplasty. DATA REPOSITORY: RADIATION DOSE DELIVERED:
== END 2024-04-03 15:52 | disposition home or self-care (01) ==
LOC: DIORS 15:52
PROVIDERS: PCP Family Medicine; Visit Provider Student in an Organized Health Care Education/Training Program
DX: Z96.653 Presence of artificial knee joint, bilateral; Z47.1 Aftercare following joint replacement surgery
CPT/HCPCS: 73560

== ENCOUNTER 2024-07-24 04:10 | Outpatient (CLI) | payer BC, SELFPAY ==
[2024-07-24 15:35] LABS: HGB 13.9 g/dL (11.2-15.7); MCH 28.8 pg (27.0-33.0); MCHC 32.3 % (32.0-36.0); MCV 89 fL (80-95); MPV 10.7 fL (8.0-11.0); Platelet Count 259 10^3/uL (130-400); RBC 4.83 10^6/uL (3.93-5.22); RDW 13.8 % (11.7-14.6); RDW-SD 44.8 fL; WBC 7.29 10^3/uL (4.4-10.8)
[2024-07-24 16:11] LABS: Anion Gap 6.9 mmol/L (3-11); BUN 15 mg/dL (7-18); CO2 30.1 mmol/L (21.0-32.0); CREATININE 1.1 mg/dL (0.55-1.02); Calcium 9.6 mg/dL (8.5-10.1); Chloride 104 mmol/L (98-107); Estimated GFR 57.17 (mL/min/1.73m2); Glucose 99 mg/dL (74-106); Potassium 4.3 mmol/L (3.5-5.1); Sodium 141 mmol/L (136-145)
== END 2024-07-24 04:11 | disposition home or self-care (01) ==
LOC: LBO 04:10
PROVIDERS: PCP Family Medicine; Visit Provider Student in an Organized Health Care Education/Training Program
DX: M16.0 Bilateral primary osteoarthritis of hip (principal); Z01.818 Encounter for other preprocedural examination
CPT/HCPCS: 36415; 80048; 85027; 86850; 86900; 86901

== ENCOUNTER 2024-07-24 14:28 | Outpatient (CLI) | payer BC, SELFPAY ==
--- NOTE | 2024-07-24 14:15 | DI.RAD_ITS ---
Exam(s) XR PELVIS AP EXAM: XR PELVIS AP CLINICAL HISTORY: THR Planning. TECHNIQUE: 2D digital imaging was performed.One images were obtained. COMPARISON: CR XR HIP PELVIS ADULT BL from 12/22/2023 FINDINGS: BONES: No acute fracture is present. No bony destructive lesion is seen. JOINTS: In the left hip, there is marked narrowing of the joint space. Osteophytes are seen at both the acetabulum and the femoral head. In the right knee, there is also marked narrowing of the joint space. Mild spurring is seen at the acetabulum and femoral head. SOFT TISSUE: Normal. IMPRESSION: Marked hip arthrosis, left greater than right. DATA REPOSITORY: RADIATION DOSE DELIVERED:
== END 2024-07-24 14:29 | disposition home or self-care (01) ==
LOC: DIORS 14:28
PROVIDERS: PCP Family Medicine; Referring Provider Family Medicine; Visit Provider Physician Assistant
DX: M16.0 Bilateral primary osteoarthritis of hip (principal)
CPT/HCPCS: 72170

== ENCOUNTER 2024-08-09 16:52 | Observation (INO) | payer BC, SELFPAY ==
[2024-08-09] VITALS (76 sets, daily range): BP systolic 73–142; BP diastolic 34–95; PULSE 65–97; RESP 10–28; TEMP 35.8–36.9; O2SAT 88–100; BMI 40.8
[2024-08-09] MEDS: Acetaminophen 500 MG TAB 1000 MG PO ×3 (06:47→23:43)
[2024-08-09] MEDS: Celecoxib 200 MG CAP 400 MG PO (06:48)
--- NOTE | 2024-08-09 06:52 | W.ANESPRE ---
General Info Date of Service Date Performed: 08/09/24 Height: 5 ft 6 in Weight: 114.7 kg Body Mass Index (BMI): 40.8 Surgical Procedure: Operation Date: 08/09/24 08:00 Proposed Procedure Side Surgeon p Hip Total Hip Anterior Bilateral Bilateral Say Ramos MD Meds Allergies and Home Medications Allergies Allergy/AdvReac Type Severity Reaction Status Date / Time No Known Allergies Allergy Verified 08/09/24 06:37 Home Medication ?Medication ?Instructions ?Recorded Gummi Fiber Chew 2 tab.chew PO BID 09/03/14 multivitamin (Daily Multi-Vitamin 1 ea PO DAILY 09/03/14 tablet) omeprazole 20 mg capsule,delayed 20 mg PO DAILY@0730 10/28/15 release atorvastatin 20 mg tablet 20 mg PO QHS 01/27/23 hydroxyzine HCl 25 mg tablet 25 mg PO QHS PRN 01/27/23 melatonin 5 mg tablet 5 mg PO HS PRN 03/15/23 amitriptyline 100 mg tablet 100 mg PO DAILY 03/16/23 amlodipine 5 mg tablet 5 mg PO DAILY 03/16/23 acetaminophen 500 mg tablet 1,000 mg (2 x 500 mg) PO Q8H PRN 04/27/23 pain #90 tabs celecoxib 200 mg capsule See Rx Instructions .Route 06/25/23 .COMPLEX #60 caps tirzepatide (weight loss) 2.5 2.5 mg subcut QWEEK 03/21/24 mg/0.5 mL subcutaneous pen injector (Zepbound) heparin lock flush (porcine) 10 30 unit IV DAILY 06/16/24 unit/mL intravenous solution miconazole nitrate 2 % topical 1 applic topical DAILY 06/16/24 cream acetaminophen 500 mg tablet 1,000 mg (2 x 500 mg) PO TID #90 08/09/24 tabs aspirin 81 mg tablet,delayed 81 mg PO BID #60 tabs 08/09/24 release celecoxib 200 mg capsule 200 mg PO BID #60 caps 08/09/24 dexamethasone 4 mg tablet 4 mg PO DAILY #2 tabs 08/09/24 docusate sodium 100 mg capsule 100 mg PO BID PRN #28 caps 08/09/24 oxycodone 5 mg tablet 5 mg PO Q4H PRN #18 tabs 08/09/24 Current Visit Medications: Current Medications Generic Name Dose Route Start Last Admin Trade Name Freq PRN Reason Stop Dose Admin Acetaminophen 1,000 mg 08/09/24 06:00 Acetaminophen 500 Mg Tab PO 08/09/24 23:59 PREOP NAMRATA Celecoxib 400 mg 08/09/24 06:00 Celecoxib 200 Mg Cap PO 08/09/24 23:59 PREOP NAMRATA Ringer's Solution 1,000 mls @ 80 mls/hr 08/09/24 06:00 IV 08/09/24 23:59 INFUSION NAMRATA Cefazolin Sodium/Dextrose 2 gm in 50 mls @ 100 mls/hr 08/09/24 06:00 Ancef Duplex IVPB 08/09/24 23:59 PREOP NAMRATA Tranexamic Acid/Sodium Chloride 1,000 mg in 100 mls @ 600 mls/hr 08/09/24 06:00 IVPB 08/09/24 23:59 PREOP NAMRATA Tranexamic Acid/Sodium Chloride 1,000 mg in 100 mls @ 600 mls/hr 08/09/24 06:00 IVPB 08/09/24 23:59 DIRECTED NAMRATA IV Miscellaneous Supplies 1 each 08/09/24 06:00 Iv Access IV 08/09/24 23:59 DIRECTED NAMRATA Sodium Chloride 0 ml 08/09/24 06:00 Normal Saline Flush 10 Ml Syr IV 08/09/24 23:59 PRN PRN Sodium Chloride 0 ml 08/09/24 06:00 Normal Saline 10 Ml Vial IJ 08/09/24 23:59 DIRECTED PRN Sterile Water 0 ml 08/09/24 06:00 Water,Injection,Sterile 10 Ml Vial IJ 08/09/24 23:59 DIRECTED PRN PFSH Active Problems Active Problems: Problem Status Onset Code History of mastoiditis Acute Z86.69 Osteoarthritis, hip, bilateral Acute M16.0 DOROTHEA (obstructive sleep apnea) Chronic G47.33 Medical History Medical History Difficult intravenous access Medication management 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 states fluid on the brain, they rinsed out the fluid on my brain, I had an infection 12/2023 Per [facility] [place] Subdural Empyema History of right knee joint replacement (03/16/23) History of total left knee replacement (04/27/23) History of tonsillectomy and adenoidectomy Status post right breast lumpectomy Jaw fracture as a child required surgery S/P left knee arthroscopy section X 3 Abdominal hysterectomy EGD - IV Sedation (10/28/15) Tobacco Smoking/Tobacco Use Status: Former Tobacco Use Passive smoking exposure: No Alcohol Alcohol Intake: never Substance Use Substance use: Never Substance use type: does not use Vital Signs and Lab Results Vital Signs Most Recent Vital Signs in EMR: Most Recent Vital Signs Temp Pulse Resp BP Pulse Ox 36.5 C 80 17 142/84 H 98 08/09/24 06:15 08/09/24 06:15 08/09/24 06:15 08/09/24 06:15 08/09/24 06:15 Lab Results Blood Type / Crossmatch: Antibody Screen NEGATIVE 07/24/24 Complete Blood Count: White Blood Count 7.29 10^3/uL (4.4-10.8) 07/24/24 15:14 Red Blood Count 4.83 10^6/uL (3.93-5.22) 07/24/24 15:14 Hemoglobin 13.9 g/dL (11.2-15.7) 07/24/24 15:14 Hematocrit 43.0 % (36.0-46.0) 07/24/24 15:14 Platelet Count 259 10^3/uL (130-400) 07/24/24 15:14 Complete Metabolic Panel: Sodium 141 mmol/L (136-145) 07/24/24 15:14 Potassium 4.3 mmol/L (3.5-5.1) 07/24/24 15:14 Chloride 104 mmol/L (98-107) 07/24/24 15:14 Carbon Dioxide 30.1 mmol/L (21.0-32.0) 07/24/24 15:14 BUN 15 mg/dL (7-18) 07/24/24 15:14 Creatinine 1.1 mg/dL (0.55-1.02) H 07/24/24 15:14 Est GFR (CKD-EPI 2020) 57.17 (mL/min/1.73m2) 07/24/24 15:14 Calcium 9.6 mg/dL (8.5-10.1) 07/24/24 15:14 Glucose 99 mg/dL (74-106) 07/24/24 15:14 Liver Function Panel: No Data to Display Coagulation Panel: No Data to Display Cardiac Panel: No Data to Display Arterial Blood Gas: No Data to Display Venous Blood Gas: No Data to Display Pancreas Panel: No Data to Display Thyroid Panel: No Data to Display Infectious Disease: No Data to Display Blood Cultures: No Data to Display Toxicology Panel: No Data to Display Anesthesia Assessment and Plan Anesthesia History Personal History: No History of Anesthesia Complications Family History: No Family History of Anesthesia Complications Exercise Tolerance Exercise Tolerance: Metabolic Equivalents>4 Pertinent Negatives Pertinent Negatives: No Symptoms of GERD, No Major Cardiovascular Symptoms or Complaints, No Major Pulmonary Symptoms or Complaints and No History of CVA/TIA Cardiac & Pulmonary Exam Cardiac Exam: Normal S1/S2 Heart Sounds Pulmonary Exam: Clear Bilateral Breath Sounds and No cough or Cold Implantable Cardiac Device Does patient have a Pacemaker or an ICD?: No Airway Exam Known Difficult Airway: No Mallampati Class: 3 Mouth Opening: Normal (> 3cm) Thyromental Distance: Greater than 3 cm Neck Range of Motion: Full ROM Neck Circumference: Normal Teeth Condition: Normal Dentition and Loose or Chipped (tooth 11 chipped) ASA Classification ASA Score: ASA 3 Emergency Case?: No NPO Status NPO Status: NPO Clears >2 hours, Solids >8 hours Anesthesia Plan Resuscitation Status: Full Code Anesthesia Technique: General Anesthesia Airway Planned: Endotracheal Tube Monitors Used: Standard Monitors and SedLine Preoperative Comments:: 63 YO F presenting for B/L hip replacement. PMHx notable for CPAP (dependence at night), GERD (controlled with medication), and anxiety. PSHx notable for craniotomy 2023), after which her neurologist noticed a very subtle left sided facial droop. This is noted this AM. Plan for GETA Known vasculopath/hardstick. US PIV placement preop; midline available if decision made to stay overnight.
[2024-08-09] MEDS: Lactated Ringers 1,000 ML 80 ML IV ×2 (07:10→11:32)
[2024-08-09] MEDS: ceFAZolin 2 GM/50 ML BAG IVPB (08:01)
[2024-08-09] MEDS: TRANEXAMIC ACID/SOD. CHL. 1,000 MG/100 ML BAG 600 MG IVPB ×2 (08:15→09:40)
--- NOTE | 2024-08-09 09:15 | DI.RAD_ITS ---
Exam(s) XR HIP LT IN OR EXAM: XR HIP LT IN OR CLINICAL HISTORY: Osteoarthritis, hip, bilateral TECHNIQUE: 2D and realtime digital imaging was performed. CONTRAST MATERIAL: Refer to procedure report. COMPARISON: CR XR PELVIS AP from 07/24/2024 FINDINGS: Fluoroscopy was provided for Dr. Ramos during the performance of a left total hip arthroplasty. Please refer to the procedure report for complete details. Ka,r=4.13 mGy IMPRESSION: RADIATION DOSE DELIVERED: 0.0 0.0 0
--- NOTE | 2024-08-09 10:49 | DI.RAD_ITS ---
Exam(s) XR HIP RT IN OR EXAM: XR HIP RT IN OR CLINICAL HISTORY: Osteoarthritis, hip, bilateral TECHNIQUE: 2D and realtime digital imaging was performed. CONTRAST MATERIAL: Refer to procedure report. COMPARISON: CR XR PELVIS AP from 07/24/2024 FINDINGS: Fluoroscopy was provided for Dr. Ramos during the performance of a right total hip arthroplasty. Please refer to the procedure report for complete details. Ka,r=9.18 mGy IMPRESSION: RADIATION DOSE DELIVERED: 0.0 0.0 0
[2024-08-09] MEDS: HYDROmorphone 2 MG/ML SYR IVP ×4 (11:23→12:13)
[2024-08-09] MEDS: ePHEDrine 25 MG/5 ML Syringe IVP ×3 (11:26→12:22)
--- NOTE | 2024-08-09 12:38 | ROE_ITS ---
Operative Note Operative Note PRE-OP DIAGNOSIS: Bilateral Hip Osteoarthritis POST-OP DIAGNOSIS: same PROCEDURE: Bilateral Anterior Total Hip Arthroplasty with Intraoperative Navigation SURGEON: Say Ramos BUSINESS DEPARTMENT CHAIR: Kevin Montanez ANESTHESIA TYPE: Spinal Refer to Anesthesia Record ESTIMATED BLOOD LOSS: 1,000 PATHOLOGY: none sent COMPLICATIONS: Other (There was excessive bleeding mostly of the right hip. Visualization was challenging throughout the entire case given the patient's habitus, particular overlying the hip itself. There is no yoana vascular injury but there is excessive bleeding from the bony surface which improved with implantation ) Patient was transported to: PACU Patient's condition: stable Implants: RIGHT: 1. Depuy [place] Acetabular Component, 52mm 2. Depuy Acetabular Liner, [id number] 3. Depuy Actis Standard Femoral Stem, Size 5 4. Depuy Altrx Ceramic Femoral Head, Size 36+5mm LEFT: 1. Depuy [place] Acetabular Component, 52mm 2. Depuy Acetabular Liner, [id number] 3. Depuy Actis Standard Femoral Stem, Size 5 4. Depuy Altrx Ceramic Femoral Head, Size 36+8.5mm Indications: I have seen [place] in clinic for symptoms of hip arthritis, confirmed with radiographic findings. She has exhausted nonoperative methods and was having significant limitations in daily function and desired better function and less pain. I discussed the technical details of a hip replacement. I explained the risks of the procedure to include, but not limited to, bleeding, infection, pain, stiffness, fracture, damage to nerves and vessels, damage to muscles and tendons, loosening, instability, leg length inequality, need for repeat procedure, blood clot and cardiopulmonary demise. Despite these risks, [place] elected to proceed. Findings: There was significant signs of arthritis throughout both hips with large osteophytes and eburnation of bone. Both hips were difficult in exposure given significant habitus centralize overlying the hip. Procedure Description: [place] was greeted in the preoperative holding area where the correct side was identified and marked. The consent was reviewed with the patient and signed. The history and physical was updated. All questions were answered. She was taken back to the operating room. A general anesthestic was then administered. The patient was placed into the supine position on the HANA table. Both feet were wrapped with Webrill cotton wrap along with Coban. LEFT Side The feet were placed in specialized boots for the HANA table, well seated within the boot and secured. SCDs were applied. The patient was then slid down onto a peroneal post. A preoperative AP hip was obtained to serve as a reference for determining leg lengths. Prophylactic antibiotics in the form of Cefazolin were administered. 1g of Tranxemic Acid was given intravenously within 30 minutes of incision. The pannus was moved out of the way with use of Ioban. The left leg was then prepped with Chloraprep and draped in a standard fashion. A second prep with Chloraprep was performed prior to placement of a shower- curtain type drape with Iodine impregnated skin protection. A timeout to confirm correct identity, side and site, procedure, allergies, anesthesia, and medical concerns was performed. An obliquely oriented incision was made starting lateral to the ASIS and running distal over the Tensor Fascia Marilyn (TFL) muscle belly toward the fibular head, approximately 10cm. The skin and soft tissue was dissected sharply, through Herb?s fascia, and to the fascia of the TFL. There was an abundant amount of adiposity in this area making approach to the muscle layer more challenging and deeper than usual. Now with the fascia and superior border of the IT band identified, the fascia was incised with a new knife just above any perforators from the IT band. The TFL muscle belly was bluntly dissected away from the fascia and moved laterally. The fat between TFL and rectus was identified to ensure the dissection was not within the TFL. Blunt dissection created space between abductors and the capsule and retractor was placed over the lateral femoral neck. The fibers of the rectus femoris tendon were identified and these were freed from the anterior capsule. A second cobra retractor was placed around the medial femoral neck. The TFL was further retracted laterally to show the deep fascia. Careful dissection through this layer identified three main crossing vessels of the lateral femoral circumflex. These were cauterized in multiple locations and then cut without any noticeable bleeding. The TFL was further released bluntly from the deep fascia to expose anterior hip capsule and fat The Buzz orthopaedic retractor was then placed beneath the TFL and against sartorius and medial soft tissues to protect and retract the soft tissues. A T-capsulotomy was then performed starting at the superior lateral acetabulum and moving distally to the intertrochanteric ridge. These capsular flaps were tagged with a No. 1 Ethibond and elevated from within. The capsular flaps were released to the shoulder of the lateral neck and to the lesser trochanter to give excellent visualization of the proximal femur. A neck osteotomy was performed using an oscillating saw based on preoperative templates. This cut started in the shoulder and of the lateral neck and exited medially. The saw was at all times directed medially to avoid injury to the greater trochanter. Gentle traction was applied to the leg and the osteotomy opened. The femoral head was removed with a corkscrew. A longer corkscrew type device was utilized due to the patient's habitus. This was measured on the back table to determing the starting reamer size. Portions of the rectus obscuring visualization were minimally elevated off the superior acetabulum. An anterior retractor was placed over the anterior wall between capsule and labrum and attached to the Gripper retraction system. A posterior retractor was placed si milarly. This provided excellent visualization. The contents of the cotyloid fossa were removed with electrocautery and the labrum was removed with a knife. There was a notable floor osteophyte. There was significant chondromalacia of the superior acetabulum. Acetabular reaming began with a 48mm reamer. This first reaming was directed anterior to posterior and medial to get down to the true floor. This was inspected and reamed until the true floor was reached. The anterior retractor was then released and entry and exit was provided by traction on the capsular flaps. I then reamed sequentially up to a 52mm reamer where good fit was obtained. The larger reamers were oriented based on anatomical reference of the anterior and lateral gamboa to ensure proper abduction and anteversion. Positioning and size was confirmed with the fluoroscopy. A 52mm Depuy [place] acetabular component was selected. The acetabulum was reamed around the periphery with the selected acetabular size to prevent a rim fit. The deep tissues were irrigated. The acetabular component was then impacted in a position of about 40-45 degrees of abduction and 15-20 degrees of anteversion, using the patient?s anatomy as the ultimate landmark. Fluoroscopy was used to confirm this. There was excellent referral clerk of the acetabular component and the inserting handle was removed. The acetabular liner, Depuy [id number] polyethylene liner, was inserted and lined up with the tines of the acetabular component. There was no soft tissue interposition. The liner was then impacted into position and confirmed to be well-seated. A portion of the roxanne-articular cocktail was then injected around the acetabulum into the capsule and periosteum. This cocktail consisted of 123mg of Ropivacaine, 0.25mg of Epinephrine, 0.04mg of Clonidine, and 15mg of Ketorolac, diluted to 50cc. Traction was released from the femur. The leg was rotated to 120 degrees. Any remaining medial capsule was released until the lesser trochanter was easily palpable. A Encarnacion retractor was placed medially. The lateral capsule was further released into the shoulder to allow access to the greater trochanter. A Encarnacion retractor was placed over the greater trochanter which allowed the trochanter to flip in front of the capsule for excellent exposure. The leg was brought down into maximal extension and 20 degrees of adduction while ensuring there was no impingement on the acetabulum. Any remnant capsule within the trochanter was released. Piriformis and obturator externis were identified and protected. There was excellent access to the proximal femur. The lateral neck remnant was removed with a rongeur. A blunt canal probe was used to identify the canal and trajectory for later broaching. A box osteotome initiated the broach course. A small curved rasp and a curved curette were used to work laterally. Broaching then began with a size 8 Corail broach. This was inserted manually around the trochanter and into the canal before mallet blows. The broach was seated to a few millimeters below the cut level based on the neck cut and the preoperative template. Sequential broaching was continued with the [employer] [place] pneumatic broaching device until a tight fit was obtained with good rotational control of the femur. A trial standard neck was inserted along with a +5 trial head. The leg was brought out of extension and adduction and then reduced with traction and internal rotation. The leg was stable anteriorly in a position of 30 degrees of extension and 90 degrees of external rotation. Fluoroscopy was used to ensure there was no fracture and the stem was seated well. Leg lengths were checked with an AP pelvis and pelvic reference points. [employer] navigation system was used to confirm appropriate positioning and leg length and offset. Once content with the desired offset and leg lengths, the leg was brought back into extension, external rotation and adduction. The periosteum and surrounding tissue was injected with remaining portion of the roxanne-articular cocktail. The proximal femur was irrigated as well as the deep tissues. The Depuy Actis Standard stem, size 5, was then manually inserted into the proximal femur making sure to control rotation. It was then malleted into position with light blows, giving breaks to allow bone expansion and decrease risk of fracture. The selected Depuy Altrx Ceramic Head, size 36+8.5mm, was then placed onto the clean and dry trunnion and secured with impaction onto the tapered fit. The leg was brought back out of extension and adduction and reduced with traction and internal rotation. Stability was confirmed with no shuck at 90 degrees of external rotation and 30 degrees of extension. No impingement through range of motion arc. Final x-ray images were obtained with fluoroscopy to confirm adequate positioning and no intraoperative fracture. COMPLICATION The deep tissues were thoroughly irrigated with Irrisept chlorhexadine solution. The second dose of TXA 1g was administered intravenously.The capsule was then reapproximated with the previously placed Ethibond sutures. The TFL fascia was finally closed with a No. 2 Stratafix, barbed suture. Deep tissues were then reapproximated with 0 Vicryl and a running 2-0 Vicryl. The skin was closed with a running 4-0 Monocryl in a subcuticular fashion. This was reinforced with skin glue. A Mepilex silver dressing was applied. RIGHT Side Keeping the back table sterile, the drapes were removed, light handles changed, and fluoroscopy switched rooms sides. Once again, a AP hip was obtained to serve as a reference for determining leg lengths. The right leg was then prepped with Chloraprep and draped in a standard fashion. A second prep with Chloraprep was performed prior to placement of a shower-curtain type drape with Iodine impregnated skin protection. A timeout was once again performed to ensure that there were no issues to proceed. An obliquely oriented incision was made starting lateral to the ASIS and running distal over the Tensor Fascia Marilyn (TFL) muscle belly toward the fibular head, approximately 10cm. The skin and soft tissue was dissected sharply, through Herb?s fascia, and to the fascia of the TFL. With the fascia and superior border of the IT band identified, the fascia was incised with a new knife just above any perforators from the IT band. The TFL muscle belly was bluntly dissected away from the fascia and moved laterally. The fat between TFL and rectus was identified to ensure the dissection was not within the TFL. Blunt dissection created space between abductors and the capsule and retractor was placed over the lateral femoral neck. The fibers of the rectus femoris tendon were identified and these were freed from the anterior capsule. A second cobra retractor was placed around the medial femoral neck. The TFL was further retracted laterally to show the deep fascia. Careful dissection through this layer identified three main crossing vessels of the lateral femoral circumflex. These were cauterized in multiple locations and then cut without any noticeable bleeding. The TFL was further released bluntly from the deep fascia to expose anterior hip capsule and fat The Buzz orthopaedic retractor was then placed beneath the TFL and against sartorius and medial soft tissues to protect and retract the soft tissues. A T-capsulotomy was then performed starting at the superior lateral acetabulum and moving distally to the intertrochanteric ridge. These capsular flaps were tagged with a No. 1 Ethibond and elevated from within. The capsular flaps were released to the shoulder of the lateral neck and to the lesser trochanter to give excellent visualization of the proximal femur. A neck osteotomy was performed using an oscillating saw based on preoperative templates. This cut started in the shoulder and of the lateral neck and exited medially. The saw was at all times directed medially to avoid injury to the greater trochanter. Gentle traction was applied to the leg and the osteotomy opened. The femoral head was removed with a corkscrew, making sure to protect the TFL on its exit. This was measured on the back table to determing the starting reamer size. Portions of the rectus obscuring visualization were minimally elevated off the superior acetabulum. An anterior retractor was placed over the anterior wall between capsule and labrum and attached to the Gripper retraction system. A posterior retractor was placed similarly. This provided excellent visualization. The contents of the cotyloid fossa were removed with electrocautery and the labrum was removed with a knife. There was a notable floor osteophyte. There was significant chondromalacia of the superior acetabulum. Acetabular reaming began with a 48mm reamer. This first reaming was directed anterior to posterior and medial to get down to the true floor. This was inspected and reamed until the true floor was reached. The anterior retractor was then released and entry and exit was provided by traction on the capsular flaps. I then reamed sequentially up to a 52mm reamer where good fit was obtained. The larger reamers were oriented based on anatomical reference of the anterior and lateral gamboa to ensure proper abduction and anteversion. Positioning and size was confirmed with the fluoroscopy. A 52mm Depuy [place] acetabular component was selected. The acetabulum was reamed around the periphery with the selected acetabular size to prevent a rim fit. The deep t issues were irrigated. During this part of the case there was noted to be significant of bleeding rising up from the acetabulum. The wound was inspected on multiple occasions but showed no signs of focal vascular injury. However, there was a significant bleeding vascular channel from within the central portion of the cut surface of the acetabulum. Therefore, I continued with preparation and proceeding with component plantation. The acetabular component was then impacted in a position of about 40-45 degrees of abduction and 15-20 degrees of anteversion, using the patient?s anatomy as the ultimate landmark. Fluoroscopy was used to confirm this. There was excellent referral clerk of the acetabular component and the inserting handle was removed. The acetabular liner, Depuy [id number] polyethylene liner, was inserted and lined up with the tines of the acetabular component. There was no soft tissue interposition. The liner was then impacted into position and confirmed to be well-seated. A portion of the roxanne-articular cocktail was then injected around the acetabulum into the capsule and periosteum. This cocktail consisted of 123mg of Ropivacaine, 0.25mg of Epinephrine, 0.04mg of Clonidine, and 15mg of Ketorolac, diluted to 50cc. Traction was released from the femur. The leg was rotated to 120 degrees. Any remaining medial capsule was released until the lesser trochanter was easily palpable. A Encarnacion retractor was placed medially. The lateral capsule was further released into the shoulder to allow access to the greater trochanter. A Encarnacion retractor was placed over the greater trochanter which allowed the trochanter to flip in front of the capsule for excellent exposure. The leg was brought down into maximal extension and 20 degrees of adduction while ensuring there was no impingement on the acetabulum. Any remnant capsule within the trochanter was released. Piriformis and obturator externis were identified and protected. There was excellent access to the proximal femur. The lateral neck remnant was removed with a rongeur. A blunt canal probe was used to identify the canal and trajectory for later broaching. A box osteotome initiated the broach course. A small curved rasp and a curved curette were used to work laterally. Broaching then began with a size 8 Corail broach. This was inserted manually around the trochanter and into the canal before mallet blows. The broach was seated to a few millimeters below the cut level based on the neck cut and the preoperative template. Sequential broaching was continued with the me[employer]BT / [employer] [place] pneumatic broaching device until a tight fit was obtained with good rotational control of the femur. A trial standard neck was inserted along with a +5 trial head. The leg was brought out of extension and adduction and then reduced with traction and internal rotation. The leg was stable anteriorly in a position of 30 degrees of extension and 90 degrees of external rotation. Fluoroscopy was used to ensure there was no fracture and the stem was seated well. Leg lengths were checked with an AP pelvis and pelvic reference points. [employer] navigation system was used to confirm appropriate positioning and leg length and offset. Once content with the desired offset and leg lengths, the leg was brought back into extension, external rotation and adduction. The periosteum and surrounding tissue was injected with remaining portion of the roxanne-articular cocktail. The proximal femur was irrigated as well as the deep tissues. The Depuy Actis Standard stem, size 5, was then manually inserted into the proximal femur making sure to control rotation. It was then malleted into position with light blows, giving breaks to allow bone expansion and decrease risk of fracture. The selected Depuy Altrx Ceramic Head, size 36+5mm, was then placed onto the clean and dry trunnion and secured with impaction onto the tapered fit. The leg was brought back out of extension and adduction and reduced with t raction and internal rotation. Stability was confirmed with no shuck at 90 degrees of external rotation and 30 degrees of extension. No impingement through range of motion arc. Final x-ray images were obtained with fluoroscopy to confirm adequate positioning and no intraoperative fracture. The deep tissues were thoroughly irrigated with Irrisept chlorhexadine solution. The TFL fascia was finally closed with a No. 2 Stratafix, barbed suture. Deep tissues were then reapproximated with 0 Vicryl and a running 2-0 Vicryl. The skin was closed with a running 4-0 Monocryl in a subcuticular fashion. This was reinforced with skin glue. A Mepilex silver dressing was applied. At the end of the case, all counts were correct. [place] was transferred to the hospital bed without difficulty and suffering more excessive blood loss than usual however stable. [place] has a good prognosis. Physical therapy will start today and without restrictions, weight-bearing as tolerated. Aspirin 81mg BID will be used for DVT prophylaxis. Date of Procedure: 08/09/24
--- NOTE | 2024-08-09 15:28 | W.ANESPOSTOP ---
Postoperative Evaluation Date, Time and Location Date Performed: 08/09/24 Time Performed: 15:28 Patient Location: Day Surgery Unit Vital Signs Most Recent Imported Vital Signs: Most Recent Vital Signs Temp Pulse Resp BP Pulse Ox 36.2 C L 82 15 93/56 L 95 08/09/24 14:45 08/09/24 14:45 08/09/24 14:45 08/09/24 14:57 08/09/24 14:45 Pain Score Most Recent Pain Score: Most Recent Pain Score Pain Level 7 08/09/24 14:45 Assessment Mental Status: Awake (Alert & Oriented to Patient Baseline) Airway and Respiratory Function: Patent airway with normal (patient baseline) respiratory exam Cardiovascular Function: Hemodynamically Stable Hydration Status: Adequately Hydrated Nausea & Vomiting: No Nausea or Vomiting (some dizziness and pallor on standing. Hgb ordered by Richard) Pain: Pain is Moderate or Severe Postoperative Pain Management: Pain being addressed with medication and Ongoing pain, patient will be managed as an inpatient Peripheral Nerve Block: Patient did not receive a nerve block Postoperative Comments:: Right hand with some numbness, Dr. Ramos aware. Educated patient to notify us of worsening weakness/numbness and if lasts greater than 48 hours.
[2024-08-09] MEDS: traMADol 50 MG TAB PO ×2 (15:31→20:09)
[2024-08-09 15:48] LABS: HGB 11.1 g/dL (11.2-15.7)
[2024-08-09] MEDS: ceFAZolin 1 GM/50 ML BAG IVPB ×2 (15:54→23:40)
[2024-08-09] MEDS: Ondansetron 4 MG/2 ML VIAL IVP (15:55)
[2024-08-09] MEDS: Droperidol 5 MG/2 ML VIAL 0.625 MG IVP (16:22)
--- NOTE | 2024-08-09 17:16 | W.PC.ACHO ---
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 Malignant neoplasm of right breast in female, estrogen receptor positive Breast cancer Migraine (06/25/14) (Last Reviewed 08/09/24 @ 06:52 by Cali Castaneda CRNA) History of craniotomy Hx of brain surgery History of right knee joint replacement (03/16/23) History of total left knee replacement (04/27/23) History of tonsillectomy and adenoidectomy Status post right breast lumpectomy Jaw fracture S/P left knee arthroscopy section Abdominal hysterectomy EGD - IV Sedation (10/28/15) Most Recent Vital Signs Temperature 35.8 C L 08/09/24 17:03 Temperature Source Temporal Artery Scan 08/09/24 17:03 Pulse 82 08/09/24 17:03 Pulse Rhythm Regular 08/09/24 16:54 Pulse 83 08/09/24 12:56 Respiratory Rate 16 08/09/24 17:03 Respiratory Effort Normal 08/09/24 16:54 Respiratory Depth Normal 08/09/24 16:54 Respiratory Pattern Normal 08/09/24 16:54 Blood Pressure 114/95 H 08/09/24 17:03 Blood Pressure Mean 101 08/09/24 17:03 Pulse Oximetry 94 08/09/24 17:03 Respiratory End-tidal CO2 41 08/09/24 12:45 Oxygen Delivery Method Room Air 08/09/24 17:03 Oxygen Flow Rate 0 08/09/24 17:03 Pain Level 6 08/09/24 17:04 Allergies No Known Allergies Allergy (Verified 08/09/24 06:37) Active Medications Generic Name Dose Route Start Last Admin Trade Name Freq PRN Reason Stop Dose Admin Acetaminophen 1,000 mg 08/09/24 07:13 08/09/24 16:03 Acetaminophen 500 Mg Tab PO 09/08/24 08:29 1,000 mg TID PRN Administration Analgesia Ringer's Solution 1,000 mls @ 80 mls/hr 08/09/24 06:00 08/09/24 16:31 IV 08/09/24 23:59 80 mls/hr INFUSION NAMRATA Infusion Tranexamic Acid/Sodium Chloride 1,000 mg in 100 mls @ 600 mls/hr 08/09/24 06:00 08/09/24 09:50 IVPB 08/09/24 23:59 Infused PREOP NAMRATA Infusion Tranexamic Acid/Sodium Chloride 1,000 mg in 100 mls @ 600 mls/hr 08/09/24 06:00 08/09/24 08:24 IVPB 08/09/24 23:59 Infused DIRECTED NAMRATA Infusion Cefazolin Sodium/Dextrose 1 gm in 50 mls @ 100 mls/hr 08/09/24 16:00 08/09/24 16:23 Ancef Duplex IVPB 08/10/24 08:29 Infused Q8H NAMRATA Infusion Ondansetron HCl 4 mg 08/09/24 07:13 08/09/24 15:55 Ondansetron 4 Mg/2 Ml Vial IVP 09/08/24 07:12 4 mg Q6H PRN PRN Administration Nausea Tramadol HCl 50 mg 08/09/24 15:09 08/09/24 15:31 Tramadol 50 Mg Tab PO 09/08/24 15:08 50 mg Q4H PRN PRN Administration IV IV Catheter Type [Left Peripheral IV Antecubital] IV Catheter Gauge [Left 20 Antecubital] Diet Orders Category Date Time Status Regular/Normal [DIET] Nutrition 08/09/24 Lunch Active Diagnostics 08/09/24 08/09/24 Range/Units 20:00 15:35 Hgb Pending 11.1 L (11.2-15.7) g/dL Hct Pending Intake and Output - 24 Hour Total 04/04/24 09:18 thru 08/09/24 16:31 Intake Total 1900 Output Total 1500 Balance 400 Weight 114.7 kg Intake: IV 1800 Oral 100 Output: Urine 500 Estimated Blood Loss 1000 Other: Urine Color Yellow Urine Appearance Clear Emesis Description None Urinary Catheter Urinary Catheter Date of 08/09/24 Insertion [Straight] Time of insertion [Straight] 11:07 Falls Risk Assessment History of Falls No History 08/09/24 16:54 Contributing Factors No Factors 08/09/24 16:54 Ambulatory Aids Uses ambulatory device 08/09/24 16:54 Tubes/Lines W/no contributing factors 08/09/24 16:54 Gait Evaluation No gait disturbance 08/09/24 16:54 Fall Total Score 08/09/24 16:54 Level of Risk Moderate Risk 08/09/24 16:54 v v v v v v v v v Sending and/or Receiving Nurses: Please use comment section below to note any information pertinent to the patient hand-off not included above. Information / Comments: Patient arrived to unit via stretcher in the3 company of Izabela ESPINOSA, reports slight dizziness at transfer time, resolved. Day surgertyhad medicatioed patient. pain 5/10 to Bilateral hips, no distress at time of assessment, patien eating and conversing with this RN Report received from: received bedside report from Day Surgery Izabela ESPINOSA at 1640.
[2024-08-09 19:38] LABS: HCT 31.6 % (36.0-46.0); HGB 10.1 g/dL (11.2-15.7)
[2024-08-09] MEDS: Normal Saline Flush 10 ML SYR IV ×2 (19:38→23:40)
[2024-08-09] MEDS: Amitriptyline 50 MG TAB 100 MG PO (20:04)
[2024-08-09] MEDS: hydrOXYzine HCL 25 MG TAB PO (20:04)
[2024-08-09] MEDS: Celecoxib 200 MG CAP PO (20:04)
[2024-08-09] MEDS: Aspirin E.C. 81 MG TABEC PO (20:04)
[2024-08-09] MEDS: oxyCODONE 5 MG TAB PO (22:01)
[2024-08-09] MEDS: Melatonin 3 MG TAB 6 MG PO (23:43)
[2024-08-10] VITALS (7 sets, daily range): BP systolic 94–113; BP diastolic 52–86; PULSE 87–109; RESP 13–20; TEMP 36.3–36.5; O2SAT 96–100
[2024-08-10] MEDS: Ketorolac 15 MG/ML VIAL IVP (06:00)
[2024-08-10] MEDS: Normal Saline Flush 10 ML SYR IV (06:10)
[2024-08-10 06:38] LABS: HCT 29.4 % (36.0-46.0); HGB 9.6 g/dL (11.2-15.7); MCHC 32.7 % (32.0-36.0); MCV 89 fL (80-95); MPV 11.1 fL (8.0-11.0); Platelet Count 223 10^3/uL (130-400); RBC 3.31 10^6/uL (3.93-5.22); RDW-SD 45.2 fL; WBC 14.38 10^3/uL (4.4-10.8)
[2024-08-10 07:00] LABS: Anion Gap 7.7 mmol/L (3-11); BUN 23 mg/dL (7-18); CO2 26.3 mmol/L (21.0-32.0); CREATININE 1.4 mg/dL (0.55-1.02); Calcium 8.5 mg/dL (8.5-10.1); Chloride 102 mmol/L (98-107); Glucose 156 mg/dL (74-106); Potassium 4.8 mmol/L (3.5-5.1); Sodium 136 mmol/L (136-145)
[2024-08-10] MEDS: Acetaminophen 500 MG TAB 1000 MG PO (08:00)
[2024-08-10] MEDS: oxyCODONE 5 MG TAB PO ×3 (08:00→15:00)
[2024-08-10] MEDS: Omeprazole 20 MG CAPCR PO (08:01)
[2024-08-10] MEDS: ceFAZolin 1 GM/50 ML BAG IVPB (08:04)
--- NOTE | 2024-08-10 09:01 | PDOC.CMIN ---
Date of service: 08/10/24 Time of Service: 09:01 Care Management Initial Assmt Initial Assessment Reason for Hospitalization: B/L THR Functional Status/Living Situation Patient Presentation: [place] was sitting in a recliner when CM met with her. She is pleasant and easily engages in conversation. She is s/p B/L hip replacement and although she is in some pain, she is feeling well. [place] lives in [facility] with her , she drives and is independent at baseline. 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 [place] is planning to follow up with Ortho in 2 weeks, then will know if/when she can start outpatient PT. Town of Residence: [place] Resides with: Spouse (Sage) Significant Other/Family: Local (7 children, most live local, all are supportive per pt. Daughter Haley Monroe works for [employer]) Natural Supports: Supportive family and friends Employment Status: Employed Instrumental Activities of Daily Living (ADLs): Independent Medications Medication Management: No Issues/Barriers identified Physical Functioning/Mobility Assistive Device: Walker Advance Directives Advance Directives: Do you have an Advance Directive: Y 04/02/23 14:26 AD On File at [facility]: Y 05/14/23 09:28 Date Asked 08/09/24 08/09/24 10:07 AD Date Reviewed 12/22/23 12/22/23 08:46 COLST On File at [facility] COLST Date Scanned Code Status Resuscitation Status Full Code Insurance Coverage/Financial Issues Insurance: /[facility] [place] [id number] Care Team Visit Care Team Role Provider Type Vickie Lopez NP MD [facility] STAFF PHYSICIAN [place] Primary Care Provider NON-[facility] STAFF PHYSICIAN [facility] Other Providers OTHER Say Ramos MD Admit Provider [facility] STAFF PHYSICIAN Attending Provider Discharge Potential Discharge Needs: PCP F/U Appt and Other (Ortho) Anticipated Barriers to Discharge: None Identified Patient/Family Education Needs: Review discharge instructions, discuss Ask Me Three Transportation: Private vehicle Plan: [place] will discharge home via private vehicle when medically ready for discharge. Pt will follow up with Ortho and her discharge plan of care as directed. CM will follow. Social Determinants of Health Screening Social Determinants of health last assessed in clinic: 08/10/24 Will the Patient Participate in the Screening?: Yes Do you worry about having a steady place to live?: no Problems where you live: no known problems In the past 12 months, have you had to go without electric, gas, oil or water in your home?: no 1. Within the past 12 months, we worried whether our food would run out before we got money to buy more.: Never true 2. Within the past 12 months, the food we bought just didn't last and we didn't have money to get more.: Never true Has lack of transportation kept you from medical appointments or from doing things needed for daily living?: no Has anyone in your life made you feel unsafe or unsupported?: no How hard is it for you to pay for the very basics like food, housing, medical care, and heating? Would you say it is:: Not hard at all Do you want help finding or keeping work or a job?: I do not need or want help If for any reason you need help with day-to-day activities such as bathing, preparing meals, shopping, managing finances, etc., do you get the help you need?: I don?t need any help How often do you feel lonely or isolated from those around you?: Never Do you speak a language other than Panamanian at home?: No Does the patient want assistance with any of the above?: No PFSH All Active Problems (Updated 08/10/24 @ 13:00 by Say Ramos MD) Acute blood loss anemia (Acute) History of bilateral total hip arthroplasty (Acute 08/09/24) History of mastoiditis (Acute) Left ear 12/2023 DOROTHEA (obstructive sleep apnea) (Chronic) uses CPAP Medical History Difficult intravenous access Medication management snf current use of aromatase inhibitor Malignant neoplasm of right breast in female, estrogen receptor positive Breast cancer Migraine (06/25/14) Surgical History History of craniotomy (L) partial 12/2023-slight hearing deficit Hx of brain surgery Per pt. states fluid on the brain, they rinsed out the fluid on my brain, I had an infection 12/2023 Per [facility] Subdural Empyema History of right knee joint replacement (03/16/23) History of total left knee replacement (04/27/23) History of tonsillectomy and adenoidectomy Status post right breast lumpectomy Jaw fracture as a child required surgery S/P left knee arthroscopy section X 3 Abdominal hysterectomy EGD - IV Sedation (10/28/15) Family History Mother Parkinsons disease Macular degeneration Father Alzheimers disease Social History Smoking/Tobacco Use Status: Former Tobacco Use Quit Date: 03/08/92 Smoking risk assessment performed?: Yes Alcohol Intake: never Drug use: Never Substance use type: does not use Household members: spouse Housing: house Do you feel safe at home: Yes Do you feel safe in your relationship?: Yes
--- NOTE | 2024-08-10 09:10 | PT.INIE ---
PT Notes Visit Reasons: B/L THR Physical Therapy Inpatient Initial Evaluation Date: 08/10/2024 Referring Doctor: LESLIE Delgado/Dr. Ramos PT Orders: PT CONSULT: PT eval and treat status post Ortho surgery Precautions: Weightbearing as tolerated bilateral lower extremities Patient Profile/Admitting Diagnosis: [place] is a 63-year-old female presenting status post elective bilateral MARKELL performed by Dr. Ramos on 08/09/2024. Postop complicated by low blood pressures and pain. Patient was admitted to the MedSur unit for medical management. Patient is now postop day 1 and is awaiting blood transfusion prior to discharge to home PMHX: Osteoarthritis, hip, bilateral (Acute) History of total left knee replacement (Acute 04/27/23) History of right knee joint replacement (Acute 03/16/23) DOROTHEA (obstructive sleep apnea) (Chronic) uses CPAP Medical History Breast cancer Migraine (06/25/14) Surgical History Status post right breast lumpectomy Jaw fracture as a child required surgeryS/P left knee arthroscopy section X 3Abdominal hysterectomy EGD - IV Sedation (10/28/15) Social History/Home Situation: Patient resides in single-family home with 3 steps to enter with no rail. Patient resides with Patient independent ambulation, ADLs, home management, meal prep, finances, driving. Patient works for the [employer] system and [email or web address]. Equipment Owned/DME: [employer] Subjective: Patient reports she is feeling much better than yesterday. She notes head feels foggy but denies lightheadedness Objective: [] General Observation: Patient presented seated in chair with ice packs to bilateral hips. Mental Status: Alert and oriented x 4, cooperative, able to follow multistep directions, agreeable to participate in eval Pain: 2/10 bilateral hips status post pain medication ROM: [] Right Upper Extremity: WNL WNL Left Upper Extremity: [] Right Lower Extremity: Hip flexion 90 degrees, abduction 15 degrees internal rotation to neutral; ankle and knee WNL Left Lower Extremity: Hip flexion 90 degrees abduction 10 degrees internal rotation to neutral; knee and ankle within normal limits Strength: [] Right Upper Extremity: 5/5 Left Upper Extremity: 5/5 Right Lower Extremity: Hip flexors 3/5, abduction 3 -/5, extensor 3 /5; knee and ankle 4/5 Left Lower Extremity: Hip flexors 3/5 abductors 3 -/5 extensor 3 -/5; knee and ankle 4/5 Sensation: Intact BLE to light touch deep pressure proprioception and kinesthetic awareness intact Bed Mobility/Transfers: [] Supine to sit independent Sit to stand independent Stand to sit independent Bed to chair modified independent with FWW Gait: SBA with FWW 80 feet level surfaces including turns. Patient demonstrates reduced step length bilaterally wide base of support, excessive lateral weight shift and circumduction bilaterally. Balance: [] Static Sitting: Normal Dynamic Sitting: Good Static Standing: Good Dynamic Standing: Fair plus Special Tests: [] Mobility Limitations Standardized Measure [] [facility] 6 clicks Basic Mobility Inpatient Short Form: [] Raw Score: 22 CMS Score: 20.91% Informed Consent/Education: Patient instructed in purpose of PT consult. Treatment: [id number] Packet containing MARKELL exercise protocol has been given to patient. Education and training on initial set of exercises that can be done at home have been completed with patient. Assessment: Patient is a 63-year-old female who presents with clinical signs and symptoms consistent with current/admitting diagnoses that have resulted to mobility limitations, gait instability, generalized weakness, and impairment of motor control as demonstrated by the following impairment level findings: 1. Decreased strength to BLE major muscle groups 2. Impaired standing balance 3. Limitation of joint range of motion in B hips 4. Impaired functional activity tolerance Impairments are contributing to the following functional limitations: 1. Inability to safely ambulate without assistive device 2. Increase completion time for mobility ADL performance 3. Increased fall risk 4. Difficulty performing stairs without assistance Patient is assessed as a low complexity based on the following: History: 63-year-old female with impairment level findings, functional limitations, and past medical history as indicated above Examination: Demonstrable impairment in strength, balance, and mobility level with underlying impairments and functional limitations as documented above Presentation: Stable Decision Making: Low Goals: N/A. PT evaluation and 1-2 treatment sessions only for functional mobility training using recommended AD and for HEP instruction. Plan of Care/Treatment Plan: N/A. PT evaluation and 1-2 treatment session only for functional mobility training using recommended AD and for HEP instruction. DISCHARGE RECOMMENDATIONS: Home with home exercise program TREATMENT CODE/TIME: [id number]; [id number] Thank you for the opportunity to participate in the care of this patient. Ivette Armas, PT [facility]
--- NOTE | 2024-08-10 09:37 | PDOC.CMDIS ---
Date of service: 08/10/24 Time of Service: 13:17 LACE Index Scoring Tool Questions: Length of Stay (in days): 1 Was the patient admitted via the E.D.?: No E.D. Visits: 0 Answers: Total Score: 1 Risk of Readmission: Low Risk Care Management Discharge Plan Reason for Hospitalization: B/L THR Discharge Plan: [place] is discharged home with a plan for outpatient follow up with Ortho. Pt will also follow up with her PCP and discharge plan of care as directed. PT recommends home exercise plan, no new services are ordered prior to discharge. Patient/Family Education Needs: Review discharge instructions and plan to follow up with community providers. Discuss ask me three. SDOH Health Related Social Needs: No Data to Display
[2024-08-10] MEDS: Normal Saline Flush 10 ML SYR (09:48)
[2024-08-10] MEDS: amLODIPine 5 MG TAB PO (09:48)
[2024-08-10] MEDS: Multivitamin TAB 1 TAB PO (09:48)
[2024-08-10] MEDS: Celecoxib 200 MG CAP PO (09:48)
[2024-08-10] MEDS: Dexamethasone 4 MG TAB PO (09:48)
[2024-08-10] MEDS: Aspirin E.C. 81 MG TABEC PO (09:48)
--- NOTE | 2024-08-10 11:10 | W.PM.DS.N ---
Date of service: 08/10/24 Time of Service: 12:50 DS: Diagnosis Discharge Diagnosis (1) Osteoarthritis, hip, bilateral: Status: Resolved Discharge Plan Disposition Patient Disposition: Home Condition: Good Discharge Details Reason For Visit: B/L THR Admit Date/Time: 08/09/24 16:52 Admit Provider: Say Ramos Attending Provider: Say Ramos Primary Care Provider: L[facility] Hospital Course Hospital Course: Patient was admitted to the medical/surgical floor following the procedure due to pain, lightheadedness, and inability to mobilize. The surgery was tolerated well without any notable medical, surgical, or anesthetic complications except for some excessive bleeding, mostly from the right hip. Mobilization began postoperatively. However, this is initially limited and she did show signs of symptomatic anemia from blood loss. She was voiding spontaneously. She showed also some relative hypotension and tachycardia and therefore a single unit of blood was transfused. She tolerated this well. Physical therapy worked with the patient and was cleared for discharge home. No other acute medical issues. Pain was controlled on oral regimen. Home Meds and New Rx's Prescriptions: New acetaminophen 500 mg tablet 1,000 mg PO TID Qty: 90 3RF aspirin 81 mg tablet,delayed release (DR/EC) 81 mg PO BID Qty: 60 0RF celecoxib 200 mg capsule 200 mg PO BID Qty: 60 0RF dexamethasone 4 mg tablet 4 mg PO DAILY Qty: 2 0RF docusate sodium 100 mg capsule 100 mg PO BID PRNQty: 28 0RF oxycodone 5 mg tablet 5 mg PO Q4H PRNQty: 18 0RF Continued multivitamin [Daily Multi-Vitamin] 1 EACH tablet 1 ea PO DAILY Gummi fiber chew 2 tab.chew PO BID hydroxyzine HCl 25 mg tablet 25 mg PO QHS PRN atorvastatin 20 mg tablet 20 mg PO QHS celecoxib 200 mg capsule See Rx Instructions .ROUTE .COMPLEX Qty: 60 0RF Dose Instruction: TAKE ONE CAPSULE BY MOUTH TWICE A DAY NEEDED FOR PAIN AND INFLAMMATION Rx Instructions: TAKE ONE CAPSULE BY MOUTH TWICE A DAY NEEDED FOR PAIN AND INFLAMMATION Zepbound 2.5 mg/0.5 mL pen injector 2.5 mg subcut QWEEK Rx Instructions: for 4 weeks miconazole nitrate 2 % cream 1 applic topical DAILY heparin lock flush (porcine) 10 unit/mL solution 30 unit IV DAILY Rx Instructions: administer after IV drug administration as part of [facility] protocol omeprazole 20 MG capsule,delayed release(DR/EC) 20 mg PO DAILY@0730 melatonin 5 mg tablet 5 mg PO HS PRN amitriptyline 100 mg tablet 100 mg PO DAILY Patient Comments: TAKE ONE TABLET BY MOUTH AT BEDTIME amlodipine 5 mg tablet 5 mg PO DAILY Patient Comments: TAKE ONE TABLET BY MOUTH EVERY DAY acetaminophen 500 mg tablet 1,000 mg PO Q8H PRN Qty: 90 0RF Rx Instructions: Take two tablets up to every 8 hours as needed for pain Discharge Instructions Additional Instructions: Total Hip Discharge Instructions Activity: The most important activity is to walk. You should try to take short walks a few times a day. You have no restrictions on movement or positioning, but do not try to force what you do. You will find some stiffness and weakness with hip flexion (lifting your knee). Do not try to strengthen this too early, continue to practice walking and stairs and this will come. - Outpatient physical therapy can be helpful to help return you to a normal gait and improve your flexibility and strength. This can start around 2 weeks. For some patients, it?s not necessary. Usually this is determined at the time of discharge or at the first post-operative visit. - You should wear the EVANS hose on both legs for 2 weeks. Dressing: Keep the surgical dressing in place for at least one week. After the first week it may be removed and replace with light gauze and tape or nothing. It may get wet after 3 days but avoid soaking the dressing. If it gets wet, just lightly pat dry. It is important to always keep some gauze between skin folds, especially when you are sitting. Spend some time with the wound exposed when you are lying flat as the incision does wrinkle onto itself. Medications: - You should take Tylenol and an anti-inflammatory Celebrex as your primary pain control medications. If the Celebrex is too expensive or not covered, please call the office for another alternative (Advil/Ibuprofen or Naproxen/Aleve). - You have been prescribed a stronger pain medication Oxycodone for breakthrough pain, take as needed as prescribed. - You will continue your omeprazole to help reduce stomach acid and reflux. - You have also been prescribed Decadron to help with post-operative nausea and pain. You will take this for two days starting tomorrow. - You will be taking [Aspirin 81mg twice a day] for DVT prevention unless instructed otherwise. - If you have constipation you should take Colace or Miralax (both [id number]). It takes most people 3-4 days to have a bowel movement. Follow-up: 2 weeks If you have any acute concerns or questions, please do not hesitate to contact the office at [phone]. You may contact Dr. Ramos with any questions after hours through the hospital at [phone] or on his cell phone at [phone]. Stand Alone Forms: Anesthesia Discharge Inst., Evelina Haque ([facility]), Nursing Discharge Form Referrals: Say Ramos MD [ [facility] STAFF PHYSICIAN] - 08/24/24 10:30 am Activity:: Activity as Tolerated Equipment/Supplies:: Walker Diet:: As Tolerated Discharge Orders Discharge Orders: Discharge Order (Routine); Ordered 08/10/24 Ordered By: Say Ramos Discharge Data Discharge Date/Time-TO BE ENTERED AT DEPARTURE: 08/10/24 15:49 DS: Summary Time Spent with Patient providing and/or coordinating discharge services: Less than 30 minutes Status at Discharge Functional status at discharge: uses cane/walker Overall status at discharge: patient is progressing back to baseline Mental Status: mental status grossly normal Speech and Movement: speech and movement normal Mood: congruent mood Affect: normal affect Quality:SDOH Health Related Social Needs: No Data to Display Exam Narrative Exam Narrative: Sitting up in the chair. No acute distress. Alert and orient x 3. Bilateral hip dressings are clean dry and intact. There is some notable swelling and ecchymosis, worse on the right side but also slightly in the left side. Sensation intact to light touch over the femoral, lateral cutaneous, sciatic nerve distributions. Intact ankle dorsiflexion, plantarflexion, great toe extension and flexion. Psych Mental Status: mental status grossly normal Speech and Movement: speech and movement normal Mood: congruent mood Affect: normal affect DS: Data Vitals/I&O Vitals and I&O: Vital Signs Temperature 36.3 C L 08/10/24 14:45 Temperature Source Skin 08/10/24 11:32 Pulse 89 08/10/24 14:45 Pulse Rhythm Regular 08/09/24 16:54 Pulse 83 08/09/24 12:56 Respiratory Rate 14 08/10/24 14:45 Respiratory Effort Normal 08/09/24 16:54 Respiratory Depth Normal 08/09/24 16:54 Respiratory Pattern Normal 08/09/24 16:54 Blood Pressure 102/52 L 08/10/24 14:45 Blood Pressure Mean 73 08/10/24 11:32 Pulse Oximetry 96 08/10/24 14:45 Respiratory End-tidal CO2 41 08/09/24 12:45 Oxygen Delivery Method Room Air 08/10/24 14:45 Oxygen Flow Rate 0 08/10/24 14:45 Pain Level 5 08/10/24 15:00 Comment right lower arm BP 08/09/24 19:50 Intake & Output 08/10/24 08/10/24 08/11/24 11:59 23:59 11:59 Intake Total 75 / 758 683 / 758 Balance 75 / 758 683 / 758 Intake: IV 75 / 85 10 Blood Product 310 / 310 Rbc Leuko Reduced Unit 310 / 310 [id number] Other 363 / 363 Rbc Leuko Reduced Unit 363 / 363 [id number] Other: Urine Color Yellow Urine Appearance Clear Urine Odor Normal Comment pt voided independently Data Completed and Pending Labs on day of discharge: Labs from last 24 hours 08/10/24 09:25 ABO/Rh A Positive Antibody Screen NEGATIVE Crossmatch See Detail PFSH All Active Problems Acute blood loss anemia (Acute) History of bilateral total hip arthroplasty (Acute 08/09/24) History of mastoiditis (Acute) Left ear 12/2023 DOROTHEA (obstructive sleep apnea) (Chronic) uses CPAP Medical History Difficult intravenous access Medication management [facility] current use of aromatase inhibitor Malignant neoplasm of right breast in female, estrogen receptor positive Breast cancer Migraine (06/25/14) Surgical History History of craniotomy (L) partial 12/2023-slight hearing deficit Hx of brain surgery Per pt. states fluid on the brain, they rinsed out the fluid on my brain, I had an infection 12/2023 Per [facility] [place] Subdural Empyema History of right knee joint replacement (03/16/23) History of total left knee replacement (04/27/23) History of tonsillectomy and adenoidectomy Status post right breast lumpectomy Jaw fracture as a child required surgery S/P left knee arthroscopy section X 3 Abdominal hysterectomy EGD - IV Sedation (10/28/15) Family History Mother Parkinsons disease Macular degeneration Father Alzheimers disease Social History Smoking/Tobacco Use Status: Former Tobacco Use Quit Date: 03/08/92 Smoking risk assessment performed?: Yes Alcohol Intake: never Drug use: Never Substance use type: does not use Household members: spouse Housing: house Do you feel safe at home: Yes Do you feel safe in your relationship?: Yes Time Spent with Patient Time Spent with Patient: <45 minutes Time was spent: preparing to see the patient(eg.review tests), obtaining and/or reviewing separately otained hiistory, ordering medications,tests, procedures, indepentently interpreting results and counseling the patient
[2024-08-10] MEDS: Acetaminophen 325 MG TAB 650 MG PO (11:26)
[2024-08-10] MEDS: diphenhydrAMINE 25 MG CAP PO (11:26)
--- NOTE | 2024-08-10 12:59 | W.PM.PROGNOT ---
Date of Service Date of service: 08/10/24 Time of Service: 07:40 Assessment and Plan Assessment and plan (1) History of bilateral total hip arthroplasty: Status: Acute Assessment and plan: [place] is post bilateral hip replacements, postop day #1. She is doing relatively well and has been able to mobilize. Ever, she is dealing with continued lightheadedness, dizziness and some relative hypotension tachycardia, related to blood loss from the surgery. Otherwise, no major complication. Oxycodone for pain control. Ambulate with PT and nursing. Weightbearing as tolerated. Discharge to home later today after the blood assuming no other complications or issues. (2) Acute blood loss anemia: Status: Acute Assessment and plan: Hemoglobin dropped from 13.9-9.6. Given this greater than 4 point drop in hemoglobin with symptoms and vital sign abnormalities, expecting this to continue to drift down over the next 1 to 2 days, I would recommend proceeding with a single unit of blood. This should help out with her ability to mobilize and decrease some of her active symptoms. Subjective Subjective Interval history since last seen: [place] did okay overnight. She still continues have some lightheadedness with standing and moving. She also had some relative hypotension and tachycardia. She has been able to void. She has reports the pain is more muscular in nature but says that it feels better than what it did prior to surgery. Exam Narrative Exam Narrative: Sitting up in the bed. No acute distress. Alert orient x 3. Slightly pale. Evaluation of both hips show clean dry and intact dressings. There is notable ecchymosis seen on the right hip and to lesser's in the left side. No pain with passive internal/external rotation of both hips. Sensation tact light touch over the femoral, lateral femoral cutaneous, sciatic nerve distributions bilaterally. Objective Last Vital Signs Temp 36.5 C 08/10/24 12:43 Pulse 93 H 08/10/24 12:43 Resp 16 08/10/24 12:43 BP 102/86 08/10/24 12:43 Pulse Ox 98 08/10/24 12:43 Laboratory Results - last 24 hr 08/09/24 08/09/24 08/10/24 15:35 19:28 06:10 WBC 14.38 H RBC 3.31 L Hgb 11.1 L 10.1 L 9.6 L Hct 31.6 L 29.4 L MCV 89 MCH 29.0 MCHC 32.7 RDW 14.0 Plt Count 223 MPV 11.1 H Sodium 136 Potassium 4.8 Chloride 102 Carbon Dioxide 26.3 Anion Gap 7.7 BUN 23 H Creatinine 1.4 H Est GFR (CKD-EPI 2020) 42.80 Glucose 156 H Calcium 8.5 ABO/Rh Antibody Screen Crossmatch 08/10/24 09:25 WBC RBC Hgb Hct MCV MCH MCHC RDW Plt Count MPV Sodium Potassium Chloride Carbon Dioxide Anion Gap BUN Creatinine Est GFR (CKD-EPI 2020) Glucose Calcium ABO/Rh A Positive Antibody Screen NEGATIVE Crossmatch See Detail Time Spent with Patient Time Spent with Patient: <25 minutes Time was spent: preparing to see the patient(eg.review tests), obtaining and/or reviewing separately otained hiistory, ordering medications,tests, procedures, referring, communicating with other health adult daycare coordinator and indepentently interpreting results
--- NOTE | 2024-08-10 13:07 | PDOC.DSDIS_ITS ---
Date of service: 08/10/24 Discharge Plan Disposition Patient Disposition: Home Condition: Good Discharge Details Reason For Visit: B/L THR Admit Date/Time: 08/09/24 16:52 Admit Provider: Say Ramos Attending Provider: Say Ramos Primary Care Provider: L[facility] Hospital Course Hospital Course: Patient was admitted to the medical/surgical floor following the procedure due to pain, lightheadedness, and inability to mobilize. The surgery was tolerated well without any notable medical, surgical, or anesthetic complications except for some excessive bleeding, mostly from the right hip. Mobilization began po stoperatively. However, this is initially limited and she did show signs of symptomatic anemia from blood loss. She was voiding spontaneously. She showed also some relative hypotension and tachycardia and therefore a single unit of blood was transfused. She tolerated this well. Physical therapy worked with the patient and was cleared for discharge home. No other acute medical issues. Pain was controlled on oral regimen. Home Meds and New Rx's Prescriptions: New acetaminophen 500 mg tablet 1,000 mg PO TID Qty: 90 3RF aspirin 81 mg tablet,delayed release (DR/EC) 81 mg PO BID Qty: 60 0RF celecoxib 200 mg capsule 200 mg PO BID Qty: 60 0RF dexamethasone 4 mg tablet 4 mg PO DAILY Qty: 2 0RF docusate sodium 100 mg capsule 100 mg PO BID PRNQty: 28 0RF oxycodone 5 mg tablet 5 mg PO Q4H PRNQty: 18 0RF Continued multivitamin [Daily Multi-Vitamin] 1 EACH tablet 1 ea PO DAILY Gummi fiber chew 2 tab.chew PO BID hydroxyzine HCl 25 mg tablet 25 mg PO QHS PRN atorvastatin 20 mg tablet 20 mg PO QHS celecoxib 200 mg capsule See Rx Instructions .ROUTE .COMPLEX Qty: 60 0RF Dose Instruction: TAKE ONE CAPSULE BY MOUTH TWICE A DAY NEEDED FOR PAIN AND INFLAMMATION Rx Instructions: TAKE ONE CAPSULE BY MOUTH TWICE A DAY NEEDED FOR PAIN AND INFLAMMATION Zepbound 2.5 mg/0.5 mL pen injector 2.5 mg subcut QWEEK Rx Instructions: for 4 weeks miconazole nitrate 2 % cream 1 applic topical DAILY heparin lock flush (porcine) 10 unit/mL solution 30 unit IV DAILY Rx Instructions: administer after IV drug administration as part of [facility] protocol omeprazole 20 MG capsule,delayed release(DR/EC) 20 mg PO DAILY@0730 melatonin 5 mg tablet 5 mg PO HS PRN amitriptyline 100 mg tablet 100 mg PO DAILY Patient Comments: TAKE ONE TABLET BY MOUTH AT BEDTIME amlodipine 5 mg tablet 5 mg PO DAILY Patient Comments: TAKE ONE TABLET BY MOUTH EVERY DAY acetaminophen 500 mg tablet 1,000 mg PO Q8H PRN Qty: 90 0RF Rx Instructions: Take two tablets up to every 8 hours as needed for pain Discharge Instructions Additional Instructions: Total Hip Discharge Instructions Activity: The most important activity is to walk. You should try to take short walks a few times a day. You have no restrictions on movement or positioning, but do not try to force what you do. You will find some stiffness and weakness with hip flexion (lifting your knee). Do not try to strengthen this too early, continue to practice walking and stairs and this will come. - Outpatient physical therapy can be helpful to help return you to a normal gait and improve your flexibility and strength. This can start around 2 weeks. For some patients, it?s not necessary. Usually this is determined at the time of discharge or at the first post-operative visit. - You should wear the EVANS hose on both legs for 2 weeks. Dressing: Keep the surgical dressing in place for at least one week. After the first week it may be removed and replace with light gauze and tape or nothing. It may get wet after 3 days but avoid soaking the dressing. If it gets wet, just lightly pat dry. It is important to always keep some gauze between skin folds, especially when you are sitting. Spend some time with the wound exposed when you are lying flat as the incision does wrinkle onto itself. Medications: - You should take Tylenol and an anti-inflammatory Celebrex as your primary pain control medications. If the Celebrex is too expensive or not covered, please call the office for another alternative (Advil/Ibuprofen or Naproxen/Aleve). - You have been prescribed a stronger pain medication Oxycodone for breakthrough pain, take as needed as prescribed. - You will continue your omeprazole to help reduce stomach acid and reflux. - You have also been prescribed Decadron to help with post-operative nausea and pain. You will take this for two days starting tomorrow. - You will be taking [Aspirin 81mg twice a day] for DVT prevention unless instructed otherwise. - If you have constipation you should take Colace or Miralax (both [id number]). It takes most people 3-4 days to have a bowel movement. Follow-up: 2 weeks If you have any acute concerns or questions, please do not hesitate to contact the office at [phone]. You may contact Dr. Ramos with any questions after hours through the hospital at [phone] or on his cell phone at [phone]. Stand Alone Forms: Anesthesia Discharge Inst., Evelina Haque ([facility]) Referrals: Say Ramos MD [ [facility] STAFF PHYSICIAN] - 08/24/24 10:30 am Activity:: Activity as Tolerated Equipment/Supplies:: Walker Diet:: As Tolerated Discharge Orders Discharge Orders: Discharge Order (Routine); Ordered 08/10/24 Ordered By: Say Ramos DS: Diagnosis Discharge Diagnosis (1) Osteoarthritis, hip, bilateral: Status: Resolved
== END 2024-08-10 15:49 | disposition home or self-care (01) ==
LOC: MS 16:53
PROVIDERS: Admitting Provider Student in an Organized Health Care Education/Training Program; PCP Family Medicine; Responsible Provider Nurse Practitioner Family; Visit Provider Student in an Organized Health Care Education/Training Program
PROC: 0SR90JZ Replacement of Right Hip Joint with Synthetic Substitute, Open Approach (ICD-10-PCS; CPT 27130; principal; 2024-08-09 07:30)
DX: M16.0 Bilateral primary osteoarthritis of hip (principal); M96.810 Intraoperative hemorrhage and hematoma of a musculoskeletal structure complicating a musculoskeletal system procedure; D62 Acute posthemorrhagic anemia; G47.33 Obstructive sleep apnea (adult) (pediatric); Z79.899 Other long term (current) drug therapy; Z85.3 Personal history of malignant neoplasm of breast; G43.909 Migraine, unspecified, not intractable, without status migrainosus; Z96.653 Presence of artificial knee joint, bilateral; G89.18 Other acute postprocedural pain; R00.0 Tachycardia, unspecified; R42 Dizziness and giddiness; Y83.8 Other surgical procedures as the cause of abnormal reaction of the patient, or of later complication, without mention of misadventure at the time of the procedure; Y92.234 Operating room of hospital as the place of occurrence of the external cause
CPT/HCPCS: 27130; 20985; 36415; 80048; 85027; 86850; 86900; 86901; 86920; 96365; 96366; 96375; 97161; 97530; 73501; 85014; 85018; C1776; G0378; J0665; J0690; J1171; J1790; J1885; J2003; J2250; J2371; J2405; J2704; J3010; J8540; P9016

== ENCOUNTER 2024-08-24 10:48 | Outpatient (CLI) | payer BC, SELFPAY ==
--- NOTE | 2024-08-24 10:30 | DI.RAD_ITS ---
Exam(s) XR HIP PELVIS ADULT BL EXAM: XR HIP PELVIS ADULT BL CLINICAL HISTORY: 1ST POST OP S/P BILAT THAs. TECHNIQUE: 2D digital imaging was performed. Three images were obtained. AP pelvis and bilateral lateral hip views were obtained. COMPARISON: CR XR HIP PELVIS ADULT BL from 12/22/2023 CR XR PELVIS AP from 07/24/2024 XA XR HIP LT IN OR from 08/09/2024 XA XR HIP RT IN OR from 08/09/2024 FINDINGS: BONES: There are stable post operative changes of a bilateral total hip arthroplasty present. No fracture or dislocation. JOINTS: The orthopedic hardware is in good position. No evidence of hardware loosening. SOFT TISSUE: Normal. IMPRESSION: Interval placement of bilateral total hip arthroplasties. The orthopedic hardware appears in good position. No acute abnormality. DATA REPOSITORY: RADIATION DOSE DELIVERED:
== END 2024-08-24 10:49 | disposition home or self-care (01) ==
LOC: DIORS 10:48
PROVIDERS: PCP Family Medicine; Referring Provider Family Medicine; Visit Provider Physician Assistant
DX: Z96.643 Presence of artificial hip joint, bilateral (principal)
CPT/HCPCS: 73521

== ENCOUNTER 2024-09-03 08:24 | Emergency (ER) | payer BC, SELFPAY ==
[2024-09-03] VITALS (9 sets, daily range): BP systolic 142–153; BP diastolic 56–87; PULSE 92–108; RESP 16–18; TEMP 36.5–36.7; O2SAT 97–100
[2024-09-03 09:57] LABS: Lactate 1.9 mmol/L (<or=2.0)
[2024-09-03 10:02] LABS: Abs Immature Grans 0.07 10^3/uL (0.0-0.06); Absolute Basophil Count 0.04 10^3/uL (0.0-0.2); Absolute Eosinophil Count 0.07 10^3/uL (0.0-0.7); Absolute Lymphocyte Count 0.71 10^3/uL (1.2-3.4); Absolute Monocyte Count 1.06 10^3/uL (0.1-0.8); Absolute Neutrophil Count 11.88 10^3/uL (1.2-6.7); Basophils % 0.3 %; Eosinophils % 0.5 %; HCT 35.1 % (36.0-46.0); Immature Grans % 0.5 %; Lymphocytes % 5.1 %; MCH 28.6 pg (27.0-33.0); MCHC 31.3 % (32.0-36.0); MCV 91 fL (80-95); MPV 10.5 fL (8.0-11.0); Monocytes % 7.7 %; Neutrophils % 85.9 %; Platelet Count 309 10^3/uL (130-400); RBC 3.84 10^6/uL (3.93-5.22); RDW 15.3 % (11.7-14.6); WBC 13.83 10^3/uL (4.4-10.8)
[2024-09-03 10:04] LABS: ESR 58 mm/hr (0-30)
[2024-09-03 10:18] LABS: C-Reactive Protein 22.63 mg/dL (<or=0.5)
[2024-09-03 10:22] LABS: ALT 39 U/L (14-59); AST 34 U/L (15-37); Albumin 3.1 g/dL (3.4-5.0); Alkaline Phosphatase 160 U/L (46-116); Anion Gap 11.8 mmol/L (3-11); BUN 10 mg/dL (7-18); Bilirubin, Total 0.6 mg/dL (0.2-1.0); CO2 24.2 mmol/L (21.0-32.0); CREATININE 0.8 mg/dL (0.55-1.02); Chloride 102 mmol/L (98-107); Estimated GFR 83.78 (mL/min/1.73m2); Glucose 110 mg/dL (74-106); Sodium 138 mmol/L (136-145); Total Protein 7.3 g/dL (6.4-8.2)
[2024-09-03 10:34] LABS: Procalcitonin < 0.10 ng/mL
[2024-09-03] MEDS: cefTRIAXone 2 GM/50 ML BAG IVPB (11:38)
--- NOTE | 2024-09-03 12:06 | W.ED.GENAD ---
Discharge Plan Disposition Patient Disposition: Home Condition: Good Discharge Details Clinical Impression: Traumatic seroma of right thigh Primary Care Provider: Luma Madrid ED Provider: Jerome Hunter Home Meds and New Rx's Prescriptions: New cefadroxil 500 mg capsule 500 mg PO BID 10 Days Qty: 20 0RF No Action oxycodone 5 mg tablet 5 mg PO BID MDD 2 tabs PRN (Reason: pain) Qty: 14 0RF multivitamin [Daily Multi-Vitamin] 1 EACH tablet 1 ea PO DAILY Gummi fiber chew 2 tab.chew PO BID hydroxyzine HCl 25 mg tablet 25 mg PO QHS PRN atorvastatin 20 mg tablet 20 mg PO QHS Zepbound 2.5 mg/0.5 mL pen injector 2.5 mg subcut QWEEK Rx Instructions: for 4 weeks miconazole nitrate 2 % cream 1 applic topical DAILY omeprazole 20 MG capsule,delayed release(DR/EC) 20 mg PO DAILY@0730 melatonin 5 mg tablet 5 mg PO HS PRN amitriptyline 100 mg tablet 100 mg PO DAILY Patient Comments: TAKE ONE TABLET BY MOUTH AT BEDTIME amlodipine 5 mg tablet 5 mg PO DAILY Patient Comments: TAKE ONE TABLET BY MOUTH EVERY DAY acetaminophen 500 mg tablet 1,000 mg PO TID Qty: 90 3RF celecoxib 200 mg capsule 200 mg PO BID Qty: 60 0RF acetaminophen 500 mg tablet 1,000 mg PO Q8H PRN Qty: 90 0RF Rx Instructions: Take two tablets up to every 8 hours as needed for pain Discharge Instructions Instructions: Cellulitis (Skin Infection), Adult ED, Seroma Additional Instructions: At this time you do have cellulitis and potentially an infected seroma in your right thigh. A prescription has been sent for an antibiotic to your pharmacy. You have also been given an extra dose to go home with here. Please fill the prescription as soon as possible, but if it is not able to be filled right away, take [address] Ramos would like to see you this week in the office. His office will contact you. If you notice any worsening of your symptoms, or any new symptoms such as vomiting, diarrhea, fever, chills, shortness of breath, chest pain, numbness, weakness, or fainting , please return immediately to the emergency department for reevaluation. Please follow up with your primary care provider as soon as possible for reassessment and reevaluation. As always, it was a pleasure participating in your medical care today. Referrals: Luma Madrid [Primary Care Provider, Medicine] Discharge Data Discharge Date/Time-TO BE ENTERED AT DEPARTURE: 09/03/24 13:01 HPI General Date/Time Provider Initiated Documentation: 09/03/24 08:32. 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 Ramos, presents today for evaluation of chills swelling and pain in the right anterior thigh. Patient had surgery few weeks ago, was notably uneventful and had no complications. Unfortunately after a few days there was a small dehiscence of the proximal suture sites for the surgery. She has been cleaning this and applying triple antibiotic ointment regularly. She had no significant pain and swelling until yesterday when she noticed significant sudden swelling under the suture site, with associated pain and tenderness and chills. She has been taking NSAID therapy for pain at baseline, and has noted no fever. She denies new numbness or tingling. She denies any chest pain shortness of breath. No other complaints at this time. She is not currently on antibiotics. Related Data Home Medications ?Medication ?Instructions ?Recorded ?Confirmed Gummi Fiber Chew 2 tab.chew PO BID 09/03/14 09/03/24 multivitamin (Daily Multi-Vitamin 1 ea PO DAILY 09/03/14 09/03/24 tablet) omeprazole 20 mg capsule,delayed 20 mg PO DAILY@0730 10/28/15 09/03/24 release atorvastatin 20 mg tablet 20 mg PO QHS 01/27/23 09/03/24 hydroxyzine HCl 25 mg tablet 25 mg PO QHS PRN 01/27/23 09/03/24 melatonin 5 mg tablet 5 mg PO HS PRN 03/15/23 09/03/24 amitriptyline 100 mg tablet 100 mg PO DAILY 03/16/23 09/03/24 amlodipine 5 mg tablet 5 mg PO DAILY 03/16/23 09/03/24 acetaminophen 500 mg tablet 1,000 mg (2 x 500 mg) PO Q8H PRN 04/27/23 09/03/24 pain #90 tabs tirzepatide (weight loss) 2.5 2.5 mg subcut QWEEK 03/21/24 09/03/24 mg/0.5 mL subcutaneous pen injector ([employer]) miconazole nitrate 2 % topical 1 applic topical DAILY 06/16/24 09/03/24 cream acetaminophen 500 mg tablet 1,000 mg (2 x 500 mg) PO TID #90 08/09/24 09/03/24 tabs celecoxib 200 mg capsule 200 mg PO BID #60 caps 08/09/24 09/03/24 oxycodone 5 mg tablet 5 mg PO BID PRN pain #14 tabs 08/24/24 09/03/24 cefadroxil 500 mg capsule 500 mg PO BID 10 days #20 caps 09/03/24 Previous Rx's ?Medication ?Instructions ?Recorded acetaminophen 500 mg tablet 1,000 mg (2 x 500 mg) PO Q8H PRN 04/27/23 pain #90 tabs acetaminophen 500 mg tablet 1,000 mg (2 x 500 mg) PO TID #90 08/09/24 tabs celecoxib 200 mg capsule 200 mg PO BID #60 caps 08/09/24 oxycodone 5 mg tablet 5 mg PO BID PRN pain #14 tabs 08/24/24 cefadroxil 500 mg capsule 500 mg PO BID 10 days #20 caps 09/03/24 Allergies Allergy/AdvReac Type Severity Reaction Status Date / Time No Known Allergies Allergy Verified 09/03/24 08:35 General Stated Complaint: Cellulitis AMBER: 3 Exam Narrative Exam Narrative: 1.Const: Well-nourished, Well-developed, appearing stated age 2.Eyes: PERRL, no conjunctival injection, and symmetrical lids. 3.ENT: Atraumatic external nose and ears. Moist MM. Neck: Symmetric, trachea midline, No thyromegaly. 4.CVS: +S1/S2, Peripheral pulses 2+ and equal in all extremities. Brisk capillary refill in all extremities. 5.RESP: Unlabored respiratory effort. Clear to auscultation bilaterally. No wheezes rales or rhonchi 6.GI: Soft, Nontender/Nondistended, No hepatosplenomegaly. No guarding or rebound. 7.MSK: Right anterior thigh demonstrates an intact postoperative incision site that is clean and dry aside for the proximal component which shows a small amount of dehiscence, with associated erythema but no purulence or drainage. Below the bottom third of the incision site and slightly more distal to that there appears to be a large hard firm slightly fluctuant fluid collection with associated edema and redness. No subcutaneous crepitus. No other abnormalities otherwise. No significant pain in the hip with movement of the hip. 8.Skin: Please refer to musculoskeletal. 9.Neuro: seed cutter II-XII grossly intact. Sensation grossly intact, no focal neurologic deficits. 10.Psych: (AAO) x3. Appropriate mood and affect Course Vital Signs Vital signs: Vital Signs Temperature 36.7 C 09/03/24 08:32 Pulse 108 H 09/03/24 08:32 Respiratory Rate 18 09/03/24 08:32 Blood Pressure 153/56 H 09/03/24 08:32 Pulse Oximetry 100 09/03/24 08:32 Temperature 36.7 C 09/03/24 08:35 Temperature Source Oral 09/03/24 08:35 Pulse 94 H 09/03/24 11:00 Respiratory Rate 18 09/03/24 08:35 Blood Pressure 153/56 H 09/03/24 08:35 Blood Pressure Position Sitting 09/03/24 08:35 Pulse Oximetry 99 09/03/24 11:00 Oxygen Delivery Method Room Air 09/03/24 08:35 Oxygen Flow Rate 0 09/03/24 08:35 Pain Level 2 09/03/24 08:35 Lab/Test Results Lab/Test Results: 09/03/24 10:25 Blood Blood Culture - Pending 09/03/24 09:40 Blood Blood Culture - Pending Laboratory Tests Range/Units 09/03/24 09:40 WBC (4.4-10.8) 10^3/uL 13.83 H RBC (3.93-5.22) 10^6/uL 3.84 L Hgb (11.2-15.7) g/dL 11.0 L Hct (36.0-46.0) % 35.1 L MCV (80-95) fL 91 MCH (27.0-33.0) pg 28.6 MCHC (32.0-36.0) % 31.3 L RDW (11.7-14.6) % 15.3 H Plt Count (130-400) 10^3/uL 309 MPV (8.0-11.0) fL 10.5 Immature Gran % % 0.5 Neutrophils % % 85.9 Lymphocytes % % 5.1 Monocytes % % 7.7 Eosinophils % % 0.5 Basophils % % 0.3 Nucleated RBC % (0.0-0.3) % 0.0 Absolute Neutrophils (1.2-6.7) 10^3/uL 11.88 H Absolute Lymphocytes (1.2-3.4) 10^3/uL 0.71 L Absolute Monocytes (0.1-0.8) 10^3/uL 1.06 H Absolute Eosinophils (0.0-0.7) 10^3/uL 0.07 Absolute Basophils (0.0-0.2) 10^3/uL 0.04 ESR (0-30) mm/hr 58 H VBG Lactate (<or=2.0) mmol/L 1.9 Sodium (136-145) mmol/L 138 Potassium (3.5-5.1) mmol/L 4.0 Chloride (98-107) mmol/L 102 Carbon Dioxide (21.0-32.0) mmol/L 24.2 Anion Gap (3-11) mmol/L 11.8 H BUN (7-18) mg/dL 10 Creatinine (0.55-1.02) mg/dL 0.8 Est GFR (CKD-EPI 2020) (mL/min/1.73m2) 83.78 Glucose (74-106) mg/dL 110 H Calcium (8.5-10.1) mg/dL 9.0 Total Bilirubin (0.2-1.0) mg/dL 0.6 AST (15-37) U/L 34 ALT (14-59) U/L 39 Alkaline Phosphatase (46-116) U/L 160 H C-Reactive Protein (<or=0.5) mg/dL 22.63 H Total Protein (6.4-8.2) g/dL 7.3 Albumin (3.4-5.0) g/dL 3.1 L Procalcitonin ng/mL < 0.10 Medical Decision Making 63-year-old female with a past medical history of previous systemic bacterial infections, breast cancer, 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 Ramos, presents today for evaluation of chills swelling and pain in the right anterior thigh. Patient had surgery few weeks ago, was notably uneventful and had no complications. Unfortunately after a few days there was a small dehiscence of the proximal suture sites for the surgery. She has been cleaning this and applying triple antibiotic ointment regularly. She had no significant pain and swelling until yesterday when she noticed significant sudden swelling under the suture site, with associated pain and tenderness and chills. She has been taking NSAID therapy for pain at baseline, and has noted no fever. She denies new numbness or tingling. She denies any chest pain shortness of breath. No other complaints at this time. She is not currently on antibiotics. Right anterior thigh demonstrates an intact postoperative incision site that is clean and dry aside for the proximal component which shows a small amount of dehiscence, with associated erythema but no purulence or drainage. Below the bottom third of the incision site and slightly more distal to that there appears to be a large hard firm slightly fluctuant fluid collection with associated edema and redness. No subcutaneous crepitus. No other abnormalities otherwise. No significant pain in the hip with movement of the hip. Signs and symptoms are concerning for hematoma versus abscess. Bedside ultrasound was performed and demonstrates a large fluid collection in that area. Suspect that there was an early appropriately postoperative hematoma, but no is infected potentially secondary to the dehiscence or just on its own. Will get blood work, give IV antibiotics, monitor closely and reassess. 1 PM Laboratory workup shows a white count of 13, mild left shift but no bandemia. Lactate normal, ESR and CRP elevated at 58 and 22 respectively. Procalcitonin is normal though. Blood cultures have been ordered. Suspect early infectious process, without evidence to suggest severe sepsis or shock. As the patient is notably hemodynamically stable I do not currently see an indication for emergent admission. We did contact Dr. Ramos, and discussed the case with him. At this stage he does recommend 2 g of ceftriaxone IV which have been administered, followed by 500 mg of cefadroxil twice daily. Dr. Ramos would like to follow-up closely with her tomorrow in the clinic. Discussed red flags for which to return. No evidence of severe systemic illness at time of discharge requiring or necessitating inpatient admission. I have extensively reviewed the treatment plan and discharge instructions with the patient and their family. I have addressed all patient concerns at this time. The patient and family was made aware of what symptoms to monitor for that would warrant a return to the emergency department. Discussed the plan with the patient and family, they demonstrate verbal understanding and agreement with our assessment and plan at this time. The documentation in this chart was dictated using [employer] dictation software. Please excuse any dictation errors. PFSH All Active Problems (Updated 09/03/24 @ 12:09 by Jerome Hunter DO) Traumatic seroma of right thigh (Acute) History of bilateral total hip arthroplasty (Acute 08/09/24) History of mastoiditis (Acute) Left ear 12/2023 DOROTHEA (obstructive sleep apnea) (Chronic) uses CPAP Medical History Difficult intravenous access Medication management half-way current use of aromatase inhibitor Malignant neoplasm of right breast in female, estrogen receptor positive Breast cancer Migraine (06/25/14) Surgical History History of craniotomy (L) partial 12/2023-slight hearing deficit Hx of brain surgery Per pt. states fluid on the brain, they rinsed out the fluid on my brain, I had an [place]2023 [place] [facility] [place] [facility] [place] Empyema History of right knee joint replacement (03/16/23) History of total left knee replacement (04/27/23) History of tonsillectomy and adenoidectomy Status post right breast lumpectomy Jaw fracture as a child required surgery S/P left knee arthroscopy section X 3 Abdominal hysterectomy EGD - IV Sedation (10/28/15) Family History Mother Parkinsons disease Macular degeneration Father Alzheimers disease Social History Smoking/Tobacco Use Status: Former Tobacco Use Quit Date: 03/08/92 Smoking risk assessment performed?: Yes Alcohol Intake: never Drug use: Never Substance use type: does not use Household members: spouse Housing: house Do you feel safe at home: Yes Do you feel safe in your relationship?: Yes
--- NOTE | 2024-09-11 09:31 | ED.PROG_ITS ---
Procedure Nerve Block 1st Nerve Block: Nerve Blocks: supraorbital. Discharge Plan Disposition Patient Disposition: Home Condition: Good Discharge Details Clinical Impression: Traumatic seroma of right thigh Primary Care Provider: Luma Madrid ED Provider: Jerome Hunter Home Meds and New Rx's Prescriptions: New cefadroxil 500 mg capsule 500 mg PO BID 10 Days Qty: 20 0RF No Action oxycodone 5 mg tablet 5 mg PO BID MDD 2 tabs PRN (Reason: pain) Qty: 14 0RF multivitamin [Daily Multi-Vitamin] 1 EACH tablet 1 ea PO DAILY Gummi fiber chew 2 tab.chew PO BID hydroxyzine HCl 25 mg tablet 25 mg PO QHS PRN atorvastatin 20 mg tablet 20 mg PO QHS Zepbound 2.5 mg/0.5 mL pen injector 2.5 mg subcut QWEEK Rx Instructions: for 4 weeks miconazole nitrate 2 % cream 1 applic topical DAILY omeprazole 20 MG capsule,delayed release(DR/EC) 20 mg PO DAILY@0730 melatonin 5 mg tablet 5 mg PO HS PRN amitriptyline 100 mg tablet 100 mg PO DAILY Patient Comments: TAKE ONE TABLET BY MOUTH AT BEDTIME amlodipine 5 mg tablet 5 mg PO DAILY Patient Comments: TAKE ONE TABLET BY MOUTH EVERY DAY acetaminophen 500 mg tablet 1,000 mg PO TID Qty: 90 3RF celecoxib 200 mg capsule 200 mg PO BID Qty: 60 0RF acetaminophen 500 mg tablet 1,000 mg PO Q8H PRN Qty: 90 0RF Rx Instructions: Take two tablets up to every 8 hours as needed for pain Discharge Instructions Instructions: Cellulitis (Skin Infection), Adult ED, Seroma Additional Instructions: At this time you do have cellulitis and potentially an infected seroma in your right thigh. A prescription has been sent for an antibiotic to your pharmacy. You have also been given an extra dose to go home with here. Please fill the prescription as soon as possible, but if it is not able to be filled right away, take [address] Ramos would like to see you this week in the office. His office will contact you. If you notice any worsening of your symptoms, or any new symptoms such as vomit ing, diarrhea, fever, chills, shortness of breath, chest pain, numbness, weakness, or fainting , please return immediately to the emergency department for reevaluation. Please follow up with your primary care provider as soon as possible for reassessment and reevaluation. As always, it was a pleasure participating in your medical care today. Referrals: Luma Madrid [Primary Care Provider, Medicine] Discharge Data Discharge Date/Time-TO BE ENTERED AT DEPARTURE: 09/03/24 13:01
== END 2024-09-03 13:01 | disposition home or self-care (01) ==
PROVIDERS: Emergency Provider Student in an Organized Health Care Education/Training Program; PCP Family Medicine
DX: T79.2XXA Traumatic secondary and recurrent hemorrhage and seroma, initial encounter (principal); L03.115 Cellulitis of right lower limb; Z96.643 Presence of artificial hip joint, bilateral
CPT/HCPCS: 99284 ×2; 36415; 76882; 80053; 84145; 85652; 87040; 96365; 83605; 85025; 86140; J0696

== ENCOUNTER 2024-09-13 13:00 | Day surgery (SDC) | payer BC, SELFPAY ==
--- NOTE | 2024-09-13 12:47 | PDOC.DSDIS_ITS ---
Date of service: 09/13/24 Discharge Plan Disposition Patient Disposition: Home Condition: Good Discharge Details Reason For Visit: I&D Seroma R hip Attending Provider: Say Ramos Primary Care Provider: Luma Madrid Home Meds and New Rx's Prescriptions: New oxycodone 5 mg tablet 5 mg PO Q8H MDD 15mg PRN (Reason: pain) Qty: 10 0RF cefadroxil 500 mg capsule 500 mg PO BID Qty: 30 0RF Continued oxycodone 5 mg tablet 5 mg PO BID MDD 2 tabs PRN (Reason: pain) Qty: 14 0RF multivitamin [Daily Multi-Vitamin] 1 EACH tablet 1 ea PO DAILY Gummi fiber chew 2 tab.chew PO BID hydroxyzine HCl 25 mg tablet 25 mg PO QHS PRN atorvastatin 20 mg tablet 20 mg PO QHS Zepbound 2.5 mg/0.5 mL pen injector 2.5 mg subcut QWEEK Rx Instructions: for 4 weeks miconazole nitrate 2 % cream 1 applic topical DAILY omeprazole 20 MG capsule,delayed release(DR/EC) 20 mg PO DAILY@0730 melatonin 5 mg tablet 5 mg PO HS PRN amitriptyline 100 mg tablet 100 mg PO DAILY Patient Comments: TAKE ONE TABLET BY MOUTH AT BEDTIME amlodipine 5 mg tablet 5 mg PO DAILY Patient Comments: TAKE ONE TABLET BY MOUTH EVERY DAY acetaminophen 500 mg tablet 1,000 mg PO TID Qty: 90 3RF celecoxib 200 mg capsule 200 mg PO BID Qty: 60 0RF Discontinued acetaminophen 500 mg tablet 1,000 mg PO Q8H PRN Qty: 90 0RF Rx Instructions: Take two tablets up to every 8 hours as needed for pain Discharge Instructions Additional Instructions: Hip I&D Discharge Instructions Activity: You may bear weight as tolerated, using crutches only for support/comfort. You should apply ice to help with swelling and elevate when possible (especially in the first few days). Dressings: The dressing should remain in place for one week. you may shower after three days but should cover the bandage as you did following your total hip replacement. Medications: - You have been prescribed an antibiotic cefadroxil you will take twice daily. - You should continue and were prescribed a refill of your oxycodone for breakthrough pain. - Recommend continue your 1000mg of Acetaminophen (Tylenol) every 8 hours and 200mg of Celebrex every 12 hours as needed. - Continue to take an antibiotic, Cefadroxil, 500mg twice a day for one week. Follow-up: 7-10 days Referrals: Say Ramos MD [ [facility] STAFF PHYSICIAN, Orthopaedic Surgical] Equipment/Supplies: Partial Weight Bearing Crutches Activity:: Activity as Tolerated Shower/Bathe:: 72 hours Diet:: As Tolerated Discharge Orders Discharge Orders: Discharge Order (Routine); Ordered 09/13/24 Ordered By: Kevin Montanez DS: Diagnosis Discharge Diagnosis (1) Traumatic seroma of right thigh: Status: Acute
[2024-09-13 13:00] VITALS: BP 141/69; PULSE 85; RESP 14; TEMP 36.2; O2SAT 98
[2024-09-13] MEDS: Acetaminophen 500 MG TAB 1000 MG PO (13:32)
[2024-09-13] MEDS: Celecoxib 200 MG CAP 400 MG PO (13:33)
[2024-09-13] MEDS: Lactated Ringers 1,000 ML 80 ML IV (14:40)
--- NOTE | 2024-09-13 14:55 | ANES.PREOP_ITS ---
General Info Date of Service Date Performed: 09/13/24 Height: 5 ft 6 in Weight: 113.398 kg Body Mass Index (BMI): 40.3 Surgical Procedure: Operation Date: 09/13/24 16:55 Proposed Procedure Side Surgeon p Seroma Excision, Thigh Right Say Ramos MD Meds Allergies and Home Medications Allergies Allergy/AdvReac Type Severity Reaction Status Date / Time No Known Allergies Allergy Verified 09/13/24 13:21 Home Medication ?Medication ?Instructions ?Recorded Gummi Fiber Chew 2 tab.chew PO BID 09/03/14 multivitamin (Daily Multi-Vitamin 1 ea PO DAILY tablet) omeprazole 20 mg capsule,delayed 20 mg PO DAILY@0730 0 10/28/15 release atorvastatin 20 mg tablet 20 mg PO QHS 01/27/23 hydroxyzine HCl 25 mg tablet 25 mg PO QHS PRN 01/27/23 melatonin 5 mg tablet 5 mg PO HS PRN 03/15/23 amitriptyline 100 mg tablet 100 mg PO DAILY 03/16/23 amlodipine 5 mg tablet 5 mg PO DAILY 03/16/23 tirzepatide (weight loss) 2.5 2.5 mg subcut QWEEK 03/08 4/25 mg/0.5 mL subcutaneous pen injector ([employer] Sevenpbound) miconazole nitrate 2 % topical 1 applic topical DAILY 06/16/24 cream acetaminophen 500 mg tablet 1,000 mg (2 x 500 mg) PO T ID #90 08/09/24 tabs celecoxib 200 mg capsule 200 mg PO BID #60 caps 08/09 oxycodone 5 mg tablet 5 mg PO BID PRN pain #14 tab s 09/06/24 oxycodone 5 mg tablet 5 mg PO Q8H PRN pain #10 tab s 09/13/24 Current Visit Medications: Current Medications Generic Name Dose Route Start Last Admin Trade Name Freq PRN Reason Stop Dose Admin Acetaminophen 1,000 mg 09/13/24 06:00 09/13/24 13:32 Acetaminophen 500 Mg Tab PO 09/13/24 23:59 1,000 mg PREOP NAMRATA Administration Acetaminophen 650 mg 09/13/24 12:45 Acetaminophen 325 Mg Tab PO 10/13/24 12:44 Q4H PRN PRN Celecoxib 400 mg 09/13/24 06:00 09/13/24 13:33 Celecoxib 200 Mg Cap PO 09/13/24 23:59 400 mg PREOP NAMRATA Administration Ringer's Solution 1,000 mls @ 80 mls/hr 09/13/24 06:00 09/13/24 14:40 IV 09/13/24 23:59 80 mls/hr INFUSION NAMRATA Administration Cefazolin Sodium/Dextrose 2 gm in 50 mls @ 100 mls/hr 09/13/24 06:00 Ancef Duplex IVPB 09/13/24 23:59 PREOP NAMRATA Tranexamic Acid/Sodium Chloride 1,000 mg in 100 mls @ 600 mls/hr 09/13/24 06:00 IVPB 09/13/24 23:59 PREOP NAMRATA IV Miscellaneous Supplies 1 each 09/13/24 06:00 Iv Access IV 09/13/24 23:59 DIRECTED NAMRATA Oxycodone HCl 5 mg 09/13/24 12:45 Oxycodone 5 Mg Tab PO 10/13/24 12:44 Q3H PRN PRN Pain Sodium Chloride 0 ml 09/13/24 06:00 Normal Saline Flush 10 Ml Syr IV 09/13/24 23:59 PRN PRN Sodium Chloride 0 ml 09/13/24 06:00 Normal Saline 10 Ml Vial IJ 09/13/24 23:59 DIRECTED PRN Sterile Water 0 ml 09/13/24 06:00 Water,Injection,Sterile 10 Ml Vial IJ 09/13/24 23:59 DIRECTED PRN PFSH Active Problems Active Problems: Problem Status Onset Code Traumatic seroma of right thigh Acute T79.2XXA History of bilateral total hip arthroplasty Acute 08/09/24 Z96.643 History of mastoiditis Acute Z86.69 DOROTHEA (obstructive sleep apnea) Chronic G47.33 Medical History Medical History Difficult intravenous access 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 states fluid on the brain, they rinsed out the fluid on my brain, I had an infection 12/2023 Per [facility] [place] Subdural Empyema History of right knee joint replacement (03/16/23) History of total left knee replacement (04/27/23) History of tonsillectomy and adenoidectomy Status post right breast lumpectomy Jaw fracture as a child required surgery S/P left knee arthroscopy section X 3 Abdominal hysterectomy EGD - IV Sedation (10/28/15) Tobacco Smoking/Tobacco Use Status: Former Tobacco Use Passive smoking exposure: No Alcohol Alcohol Intake: never Substance Use Substance use: Never Substance use type: does not use Vital Signs and Lab Results Vital Signs Most Recent Vital Signs in EMR: Most Recent Vital Signs Temp Pulse Resp BP Pulse Ox 36.2 C L 85 14 141/69 H 98 09/13/24 13:00 09/13/24 13:00 09/13/24 13:00 09/13/24 13:00 09/13/24 13:00 Lab Results Complete Blood Count: WBC, (4.4-10.8) 13.83 10^3/uL H 09/03/24, 09:40 RBC, (3.93-5.22) 3.84 10^6/uL L 09/03/24, 09:40 Hgb, (11.2-15.7) 11.0 g/dL L 09/03/24, 09:40 Hct, (36.0-46.0) 35.1 % L 09/03/24, 09:40 Plt Count, (130-400) 309 10^3/uL 09/03/24, 09:40 VBG Lactate, (<or=2.0) 1.9 mmol/L 09/03/24, 09:40 Complete Metabolic Panel: Sodium, (136-145) 138 mmol/L 09/03/24, 09:40 Potassium, (3.5-5.1) 4.0 mmol/L 09/03/24, 09:40 Chloride, (98-107) 102 mmol/L 09/03/24, 09:40 Carbon Dioxide, (21.0-32.0) 24.2 mmol/L 09/03/24, 09 :40 BUN, (7-18) 10 mg/dL 09/03/24, 09:40 Creatinine, (0.55-1.02) 0.8 mg/dL 09/03/24, 09:40 Est GFR (CKD-EPI 2020), (mL/min/1.73m2) 83.78 09/03/24, 09:40 Calcium, (8.5-10.1) 9.0 mg/dL 09/03/24, 09:40 Albumin, (3.4-5.0) 3.1 g/dL L 09/03/24, 09:40 Glucose, (74-106) 110 mg/dL H 09/03/24, 09:40 C-Reactive Protein, (<or=0.5) 22.63 mg/dL H 09/03/24, 09:40 Liver Function Panel: ALT, (14-59) 39 U/L 09/03/24, 09:40 AST, (15-37) 34 U/L 09/03/24, 09:40 Imaging and Studies Imaging and Studies Study information below may be from another EMR and interpreted by another provider. Please see original notes in EMR for more complete details. EKG Summary: 12/31/23: Exam: Resting ECG Reason for Exam: weakness Patient Location: E HR:80 bpm ECG Measurements Heart Rate 80 AXIS SC 147 P 49 QRSd 100 QRS 14 QT 390 T21 QTc 451 Conclusion Sinus rhythm. 80 normal axis no stemi I have reviewed and I agree with the emergency room physician's ECG interpretation. Anesthesia Assessment and Plan Anesthesia History Personal History: No History of Anesthesia Complications Family History: No Family History of Anesthesia Complications Exercise Tolerance Exercise Tolerance: Metabolic Equivalents>4 Pertinent Negatives Pertinent Negatives: No Symptoms of GERD, No Major Cardiovascular Symptoms or Complaints and No Major Pulmonary Symptoms or Complaints Cardiac & Pulmonary Exam Cardiac Exam: Normal S1/S2 Heart Sounds Pulmonary Exam: Clear Bilateral Breath Sounds Implantable Cardiac Device Does patient have a Pacemaker or an ICD?: No Airway Exam Known Difficult Airway: No Mallampati Class: 3 Mouth Opening: Normal (> 3cm) Thyromental Distance: Greater than 3 cm Neck Range of Motion: Full ROM Neck Circumference: Normal Teeth Condition: Normal Dentition and Loose or Chipped ASA Classification ASA Score: ASA 3 Emergency Case?: No NPO Status NPO Status: NPO Clears >2 hours, Solids >8 hours Anesthesia Plan Resuscitation Status: Full Code Anesthesia Technique: General Anesthesia Airway Planned: Endotracheal Tube Monitors Used: Standard Monitors Preoperative Comments:: Previous anes: 2b, hernandez 2 Zepbound held 10/days
[2024-09-13 15:00] VITALS: BMI 40.3
[2024-09-13] MEDS: ceFAZolin 2 GM/50 ML BAG IVPB (15:51)
[2024-09-13] MEDS: TRANEXAMIC ACID/SOD. CHL. 1,000 MG/100 ML BAG 600 MG IVPB (15:59)
[2024-09-13] MEDS: Bupivacaine 0.25% Pres-Free W/EPI 30 ML VIAL (16:22)
[2024-09-13 16:46] VITALS: BP 116/65; PULSE 84; RESP 16; TEMP 36.2; O2SAT 95
[2024-09-13] MEDS: oxyCODONE 5 MG TAB PO (16:58)
--- NOTE | 2024-09-13 17:04 | W.ANESPOSTOP ---
Postoperative Evaluation Date, Time and Location Date Performed: 09/13/24 Time Performed: 17:04 Patient Location: Day Surgery Unit Vital Signs Most Recent Imported Vital Signs: Most Recent Vital Signs Temp Pulse Resp BP Pulse Ox 36.2 C L 84 16 116/65 95 09/13/24 16:46 09/13/24 16:46 09/13/24 16:46 09/13/24 16:46 09/13/24 16:46 Pain Score Most Recent Pain Score: Most Recent Pain Score Pain Level 8 09/13/24 16:46 Assessment Mental Status: Awake (Alert & Oriented to Patient Baseline) Airway and Respiratory Function: Patent airway with normal (patient baseline) respiratory exam Cardiovascular Function: Hemodynamically Stable Hydration Status: Adequately Hydrated Nausea & Vomiting: No Nausea or Vomiting Pain: Pain is Moderate or Severe Postoperative Pain Management: Pain being addressed with medication Peripheral Nerve Block: Patient did not receive a nerve block Postoperative Comments:: Sitting up in bed, eating a snack, and will take PO pain medication
--- NOTE | 2024-09-13 17:05 | W.PM.OP ---
Operative Note Operative Note PRE-OP DIAGNOSIS: Right Hip Infected Seroma, s/p Total Hip Arthroplasty PROCEDURE: Seroma excision with irrigation and debridement of right hip Application of vacuum-assisted wound dressing, luisa SURGEON: Say Ramos DIELECTRIC TESTING MACHINE OPERATOR: Kevin Montanez ANESTHESIA TYPE: General:No Airway Refer to Anesthesia Record ESTIMATED BLOOD LOSS: 10 PATHOLOGY: other (Aerobic and anaerobic cultures from the right hip were sent to microbiology) TOURNIQUET TIME: 0 COMPLICATIONS: None Patient was transported to: same day Patient's condition: stable Indications: [place] is a 63-year-old female who underwent bilateral hip replacements just over a month ago. She developed a seroma about the right hip. This was treated conservatively but unfortunately it looked to become infected. She had no deep hip symptoms. She did have a very small area which was draining from the distal aspect of her wound. Given this symptoms I recommend proceeding with excision of the seroma with irrigation debridement of the soft tissues of the right hip. I discussed the tentacle details of the surgery. I discussed the risk to include bleeding, infection, pain, stiffness, need for repeat procedures. Despite these risk, she elected to proceed. Findings: There was a seroma primarily lateral and posterior to the incision site. There was some murky fluid but there was no gross purulence. There is some sclerotic fat and some fat necrosis. Aggressive debridement was performed the soft tissues along with thorough irrigation followed by closure. Procedure Description: [place] was greeted in the preoperative holding area. Identity was confirmed the correct site was identified and marked. The consent was reviewed the patient and signed. The history and physical was updated. She was taken back to the operating room and placed in the supine position on a regular operating room table. The area about the right hip was prepped with ChloraPrep and draped in a standard fashion. Prophylactic antibiotics in the form of cefazolin were given. She also was administered 1 g of tranexamic acid. A timeout was performed for safe surgery. The distal two thirds of the incision utilized and the previous scar tract was excised. This was taken down approximate 2 to 3 cm distal to the end of the previous incision. The skin and the adjacent subcutaneous tissue was removed sharply. The deeper layers were then incised and there was noted to be some sclerosis of the fat and areas but also some liquefication of the fat suggestive of fat necrosis. Once deeper into the tissues there was noted to be a collection of fluid about the midportion of the wound and extending slightly posterior. Culture swabs aerobic and anaerobic were sent to the lab from here. Dissection was carried down and aggressive debridement is performed with a rongeur. There was a subtle capsule trying to form posteriorly but it was not very well-organized. I utilized a rongeur as well as a curette to debride the surfaces of any loose or necrotic tissue. This was done for all areas exposed. There is no notable tracking except for slight posterior tracking. Rongeur once again was utilized aggressively debride some of the sclerotic and necrotic fat. Aggressive irrigation was also performed to also demonstrate active bleeding tissue. There is no significant purulence. Once it was thoroughly irrigated with over 1 L of saline and debrided it appeared to be a clean wound bed with bleeding tissue. I then washed the wound with surgiphor Betadine solution, allowing to sit for 3 minutes, and then washing out with saline. The subcutaneous and deep tissues were then injected with 0.25% bupivacaine. I used a #0 Vicryl to tack down some of the space of the right hip with a quilting type suture. I then closed the subcutaneous tissue including the deeper tissue with a larger bite using a #2-0 Vicryl in a deep fashion. The skin was then closed with a running #4-0 Monocryl. A luisa vacuum-assisted dressing was then placed over the wound to assist with wound healing and manage any drainage. At the end the case all counts were correct. Pathology specimens were sent to microbiology for aerobic anaerobic culture. She was transferred back to day surgery in stable condition. She will be weightbearing as tolerated. She will keep the luisa in place for at least 1 week. She will take antibiotics for at least 1 week. Date of Procedure: 09/13/24
[2024-09-13 17:12] VITALS: BP 128/67; PULSE 73; RESP 18; TEMP 36.2; O2SAT 99
== END 2024-09-13 18:05 | disposition home or self-care (01) ==
LOC: SUR 13:00
PROVIDERS: PCP Family Medicine; Visit Provider Student in an Organized Health Care Education/Training Program
PROC: (CPT 27047; principal; 2024-09-13 16:45)
DX: L76.34 Postprocedural seroma of skin and subcutaneous tissue following other procedure (principal); Y83.1 Surgical operation with implant of artificial internal device as the cause of abnormal reaction of the patient, or of later complication, without mention of misadventure at the time of the procedure; Z96.643 Presence of artificial hip joint, bilateral
CPT/HCPCS: 27047; 87070; 87075; 87205; J0690; J1100; J2003; J2405; J2704; J3010